=== PATIENT | male | born 1960 | race Caucasian/White ===

== ENCOUNTER 2023-07-18 12:53 | Inpatient (IN) | payer OTHER, SELFPAY ==
[2023-07-18] VITALS (23 sets, daily range): BP systolic 89–174; BP diastolic 51–91; BMI 43.8; BMI 45.2
[2023-07-18 09:53] LABS: Hematocrit 46.6 % (39.0-52.0); Hemoglobin 15.8 g/dL (13.0-18.0); Mean Corp Hgb Conc. 33.9 g/dL (33.0-37.0); Mean Corpuscular Hgb 29.5 pg (27.0-31.0); Mean Corpuscular Volume 87.1 fL (80.0-94.0); Mean Platelet Volume 12.4 fL (7.4-10.4); Nucleated Red Blood Cells % 0 % (-); Platelet Count 257 10^3/uL (130-400); Red Blood Cell Count 5.35 10^6/uL (4.70-6.10); Red Cell Dist. Width 14.4 % (11.5-14.5); White Blood Cell Count 16.8 10^3/uL (4.8-10.8)
[2023-07-18 09:57] LABS: Lactic Acid 2.5 mmol/L (0.7-2.0)
[2023-07-18 10:10] LABS: ALT (SGPT) 23 U/L (0-50); AST (SGOT) 31 U/L (17-59); Albumin 4.1 g/dl (3.5-5.0); Alkaline Phosphatase 55 U/L (38-126); Blood Urea Nitrogen 42 mg/dl (9-20); Carbon Dioxide 22 mmol/L (22-30); Chloride 101 mmol/L (98-107); Estimated Creatinine Clearance 23 ml/min; Glucose 129 mg/dl (70-99); Lipase 22 U/L (23-300); Potassium 4.8 mmol/L (3.5-5.1); Sodium 135 mmol/L (135-145); Total Protein 6.8 g/dl (6.3-8.2); eGFR 14.38
--- NOTE | 2023-07-18 10:14 | ED.GENMED ---
History of Present Illness
<DANIEL Haji - Last Filed: 07/18/23 13:05>
General
Chief Complaint: Abdominal Pain
Source: patient
Exam Limitations: none
Time Seen by Provider: 07/18/23 10:04
Nursing documentation reviewed up to this point in time: agreed with
Travel History
Have you had any contact with someone who has COVID-19?: No
Do you have any symptoms of coronavirus? Fever > 100 degrees, chills, cough, shortness of breath, sore throat, loss of taste or smell, muscle aches, or headache?: No
History of Present Illness
History of Present Illness:
Patient is a 61 show male who presents to the ER with complaints of right-sided abdominal pain decreased appetite. Patient had a colonoscopy on Saturday felt fine Saturday but symptoms of pain and decreased appetite started yesterday. Patient had a
25 mm polyp in the cecum removed. This was resected retrieved and a clip was placed.
Patient denies any nausea however he has not been eating. He is trying to drink a little bit of sharri joel he also reports he is not urinating a lot of urine at a time. does report that patient's abdomen is very distended.
Past History
<DANIEL Haji - Last Filed: 07/18/23 13:05>
Past History
ED Past Medical History: GERD and HTN (not on any meds)
ED Past Surgical History: Other (Vascular surgery)
Social History
Tobacco: Smoker
Personal:
Living: with family
Employment: Employed
Family History
Family History: Other (Noncontributory)
Review of Systems
<DANIEL Haji - Last Filed: 07/18/23 13:05>
Review of Systems
Allergies reviewed?: Yes
All Other Systems: ROS reviewed and negative except as documented in HPI and ROS
Constitutional: Reports no symptoms; Denies fever, fatigue or chills
EENT: Reports no symptoms
Respiratory: Reports no symptoms
Cardiac: Reports no symptoms
ABD/GI: Reports abdominal pain and other (distention ; right sided abd pain ); Denies vomiting or diarrhea
: Reports other (only urinating small amts of urine at a time )
Musculoskeletal: Reports no symptoms
Skin: Reports no symptoms
Neurological: Reports no symptoms
Psychiatric: Reports no symptoms
Phy Exam
<DANIEL Haji - Last Filed: 07/18/23 13:05>
General Physical Exam
General Presentation: no apparent distress
General age: appears stated age
General Skin: warm and dry
General Habitus: obese
General Mental: alert
General Hydration: appears well hydrated
Gastrointestinal Exam
Gastrointestinal Exam: soft and other (tender right abdomen )
Neurological Exam
Neurological Exam: alert and oriented x3
Course
<DANIEL Haji - Last Filed: 07/18/23 13:05>
Orders/Labs/Results
Orders:
Orders
07/18/23 09:30
IV Insert/Care/Rem.- Treatment PRN
07/18/23 09:39
Complete Blood Count/With Diff Urgent
Comprehensive Metabolic Panel Urgent
Lactic Acid Urgent
Lipase Urgent
Manual Differential Urgent
Blood Culture Routine
ZAC Source: Blood/Venous
Specimen Description:
07/18/23 10:14
IV Insert/Care/Rem.- Treatment PRN
0.9% Sodium Chloride 1000 ml [Nss] 1,000 ml IV BOLUS
07/18/23 10:16
Bladder Scan- Treatment ONCE
07/18/23 10:24
CT Abd/pel Without Iv Or Oral Urgent
Comment:
Reason For Exam: right sided abd pain s/p colonscopy
07/18/23 12:02
Morphine Sulfate 4 mg IV NOW STA
Piperacillin/Tazo 3.375 Gram [Zosyn] 3.375 gram in 50 ml IV NOW
07/18/23 12:04
ColoRectal Surgery Consult Urgent
Consulting Provider: Apolinar Hanson
Was physician already notified: Yes
NEPHROLOGY CONSULT Urgent
Consulting Provider: Jessica Harris
Was physician already notified: Yes
07/18/23 12:09
Blood Culture Routine
ZAC Source: Blood/Venous
Specimen Description:
07/18/23 12:14
0.9% Sodium Chloride 1000 ml [Nss] 1,000 ml IV BOLUS
07/18/23 12:15
0.9% Sodium Chloride 500 ml [Nss] 1,000 ml IV BOLUS
07/18/23 12:28
GASTROINTESTINAL CONSULT Urgent
Consulting Provider: Jen Carmichael
Was physician already notified: Yes
07/18/23 12:37
GASTROINTESTINAL CONSULT Urgent
Consulting Provider: Jen Carmichael
Was physician already notified: Yes
07/18/23 12:41
Admit/Transfer Patient As Directed
Co-Sign Provider:
Level of Care: Inpatient admission
Assign to:: IMU- Intermediate Care
Physician / Group: madisyn merritt
Diagnosis: Acute pneumoperitoneum, acute kidney injury, lactic acidosis
Reason for Hospitalization: Acute pneumoperitoneum, acute kidney injury, lactic acidosis
Expected length of stay greater than two midnights?: Yes
ELOS- Estimated Length of Stay in days: 3
I certify the patient meets the requirements for IP care: Yes
07/18/23 12:42
Code Status As Directed
Resuscitation Status: Full Code
07/18/23 12:45
Bladder Scan As Directed
Follow Bladder Retention/Intermittent Cath Algorithm?: Yes
PRN if no void in __ hours: 6
Frequency: Per Retention Algorithm
If Bladder Scan Result >: 400
then:: Straight cath
Straight Cath As Directed
Frequency: Per Retention Algorithm
Additional Instructions: straight cath as needed per acute urinary retention algorithm for 24 hrs
Additional Instructions: for bladder scan greater than 400 mL
07/18/23 15:00
Lactic Acid Routine
Abnormal Lab Results
07/18/23
09:39
WBC 16.8 H 10^3/uL
(4.8-10.8)
MPV 12.4 H fL
(7.4-10.4)
Abs Neuts (Manual) 14.2 H 10^3/uL
(1.4-6.5)
Band Neutrophils 35 H %
(0-3)
Lymphocytes (Manual) 4 L %
(20-51)
BUN 42 H mg/dl
(9-20)
Creatinine 4.4 H* mg/dL
(0.7-1.3)
Glucose 129 H mg/dl
(70-99)
Lactic Acid 2.5 H mmol/L
(0.7-2.0)
Lipase 22 L U/L
(23-300)
07/18/23 09:39
07/18/23 09:39
Vital Signs
Initial and Last Documented VS:
Initial Vital Signs
Temp Pulse Resp BP Pulse Ox
98.0 F 104 18 106/68 92
07/18/23 09:29 07/18/23 09:29 07/18/23 09:29 07/18/23 09:29 07/18/23 09:29
Last Documented Vital Signs
Temp Pulse Resp BP Pulse Ox
98.0 F 89 18 105/62 100
07/18/23 09:29 07/18/23 12:24 07/18/23 12:24 07/18/23 12:24 07/18/23 12:24
Retail Merchandiser Technician consulted with Physician
Retail Merchandiser Technician consulted with physician?: Yes
Name of Physician Consulted: Melissa
<Anders Torres MD - Last Filed: 07/18/23 12:20>
Orders/Labs/Results
Orders:
Orders
07/18/23 09:30
IV Insert/Care/Rem.- Treatment PRN
07/18/23 09:39
Complete Blood Count/With Diff Urgent
Comprehensive Metabolic Panel Urgent
Lactic Acid Urgent
Lipase Urgent
Manual Differential Urgent
Blood Culture Routine
ZAC Source: Blood/Venous
Specimen Description:
07/18/23 10:14
IV Insert/Care/Rem.- Treatment PRN
0.9% Sodium Chloride 1000 ml [Nss] 1,000 ml IV BOLUS
07/18/23 10:16
Bladder Scan- Treatment ONCE
07/18/23 10:24
CT Abd/pel Without Iv Or Oral Urgent
Comment:
Reason For Exam: right sided abd pain s/p colonscopy
07/18/23 12:02
Morphine Sulfate 4 mg IV NOW STA
Piperacillin/Tazo 3.375 Gram [Zosyn] 3.375 gram in 50 ml IV NOW
07/18/23 12:04
ColoRectal Surgery Consult Urgent
Consulting Provider: Apolinar Hanson
Was physician already notified: Yes
NEPHROLOGY CONSULT Urgent
Consulting Provider: Jessica Harris
Was physician already notified: Yes
07/18/23 12:09
Blood Culture Routine
ZAC Source: Blood/Venous
Specimen Description:
07/18/23 12:14
0.9% Sodium Chloride 1000 ml [Nss] 1,000 ml IV BOLUS
07/18/23 12:15
0.9% Sodium Chloride 500 ml [Nss] 1,000 ml IV BOLUS
07/18/23 12:28
GASTROINTESTINAL CONSULT Urgent
Consulting Provider: Jen Carmichael
Was physician already notified: Yes
07/18/23 12:37
GASTROINTESTINAL CONSULT Urgent
Consulting Provider: Jen Carmichael
Was physician already notified: Yes
07/18/23 12:41
Admit/Transfer Patient As Directed
Co-Sign Provider:
Level of Care: Inpatient admission
Assign to:: IMU- Intermediate Care
Physician / Group: madisyn merritt
Diagnosis: Acute pneumoperitoneum, acute kidney injury, lactic acidosis
Reason for Hospitalization: Acute pneumoperitoneum, acute kidney injury, lactic acidosis
Expected length of stay greater than two midnights?: Yes
ELOS- Estimated Length of Stay in days: 3
I certify the patient meets the requirements for IP care: Yes
07/18/23 12:42
Code Status As Directed
Resuscitation Status: Full Code
07/18/23 12:45
Bladder Scan As Directed
Follow Bladder Retention/Intermittent Cath Algorithm?: Yes
PRN if no void in __ hours: 6
Frequency: Per Retention Algorithm
If Bladder Scan Result >: 400
then:: Straight cath
Straight Cath As Directed
Frequency: Per Retention Algorithm
Additional Instructions: straight cath as needed per acute urinary retention algorithm for 24 hrs
Additional Instructions: for bladder scan greater than 400 mL
07/18/23 15:00
Lactic Acid Routine
Abnormal Lab Results
07/18/23
09:39
WBC 16.8 H 10^3/uL
(4.8-10.8)
MPV 12.4 H fL
(7.4-10.4)
Abs Neuts (Manual) 14.2 H 10^3/uL
(1.4-6.5)
Band Neutrophils 35 H %
(0-3)
Lymphocytes (Manual) 4 L %
(20-51)
BUN 42 H mg/dl
(9-20)
Creatinine 4.4 H* mg/dL
(0.7-1.3)
Glucose 129 H mg/dl
(70-99)
Lactic Acid 2.5 H mmol/L
(0.7-2.0)
Lipase 22 L U/L
(23-300)
07/18/23 09:39
07/18/23 09:39
Vital Signs
Initial and Last Documented VS:
Initial Vital Signs
Temp Pulse Resp BP Pulse Ox
98.0 F 104 18 106/68 92
07/18/23 09:29 07/18/23 09:29 07/18/23 09:29 07/18/23 09:29 07/18/23 09:29
Last Documented Vital Signs
Temp Pulse Resp BP Pulse Ox
98.0 F 89 18 105/62 100
07/18/23 09:29 07/18/23 12:24 07/18/23 12:24 07/18/23 12:24 07/18/23 12:24
<DANIEL Haji - Last Filed: 07/18/23 13:05>
MDM/Problems Addressed
Differential Diagnosis Includes:
Not limited to bowel obstruction, bowel perforation, dehydration
MDM/Problems Addressed:
Patient is a 61-year-old male who had colonoscopy 2 days ago. Patient started yesterday with right-sided abdominal pain distention decreased appetite. On arrival patient is tender throughout the right side of the abdomen. He appears dry and has
not been drinking a lot of fluids. He has not eaten in 2 days .
Pt presents awake alert afebrile with an elevated white count of 16.8 abnormal renal function of BUN 42 creatinine 4.4 (last labs from 2021 shows a normal creatinine 1.1), elevated lactic acid at 2.5.
Case discussed with ED physician will obtain noncontrast CAT scan fluids ordered .
11:11: CAT scan does show pneumoperitoneum the exact site of perforation is difficult to determine. GI as well as surgery notified .
Patient was eval by ED physician. Septic fluids ordered IV Zosyn ordered.
Coorectal DR Valentin live pt.
<DANIEL Haji - Last Filed: 07/18/23 13:05>
*Radiology
Radiology exam reviewed: radiology read reviewed
*Pulse Oximetry
Patient hypoxic: no
*Critical Care Note
Total Time (30-74mins, 75-104mins- exclusive of procedures): Not Applicable
ED Attending Note
<DANIEL Haji - Last Filed: 07/18/23 13:05>
-
Portions of this chart may have been created with voice recognition software.� Occasional wrong word or��sound alike� substitutions may have occurred due to the inherent limitations of voice recognition software.
<Anders Torres MD - Last Filed: 07/18/23 12:20>
ED Attending Note
Patient seen and examined by attending physician: Yes
ED Attending Note:
I have seen and evaluated the patient with a [id number]-hafv encounter. I have spoken to the advance practicer provider and involved in the medical history, the physical exam, medical decision making.
Evaluation and management service: agree unless noted differently below.
Results interpretation: agree unless noted differently below.
Focused HPI: 63-year-old male with a past medical history of hypertension, DVT, smoker who presents to the emergency department for evaluation of abdominal pain and distention. Patient had colonoscopy [address] Kern. He says that since
colonoscopy he has had increasing abdominal pain and distention. He says he is a very poor appetite. Had some nausea/dry heaving yesterday. He came to the emergency room for assessment. Has not any fevers or chills. He says he has been
urinating less. He denies any dysuria or hematuria. He denies similar symptoms in the past.
Physical exam: Awake and alert, nondistressed. Tachycardic but otherwise normal vitals. Abdomen mildly distended and tympanic. Diffuse tenderness to palpation. Mucous membranes slightly dry.
Medical Decision Makin-year-old male presents for evaluation of increasing abdominal pain and distention after colonoscopy. Tachycardic but otherwise normal vitals per exam as above. Lab work sent off including CBC which showed leukocytosis
16.8. CMP shows acute renal failure with creatinine of 4.4 from baseline of less than 1. He has no retained urine on bladder scan. He had a CT which shows pneumoperitoneum concern for bowel perforation after colonoscopy. Treated with IV Zosyn.
IV fluids in progress. Discussed case with nephrology for consultation regarding his renal failure. Discussed case with colorectal surgery regarding pneumoperitoneum. Discussed case with hospitalist for admission.
Discharge Plan
Departure
Patient Disposition: Admit
Date of Disposition: 07/18/23
Time of Disposition: 12:18
Admit to doctor: Vannessa
Presentation/result/management discussed w/ accepting MD/DO: Hospitalist
Patient with high blood pressure during this ER visit?: No
Condition: Fair
Covid-19: Not Applicable
Discharge Problem:
Pneumoperitoneum, Perforation bowel, Acute renal failure
Interventions
Interventions:
*Risk Screen - Suicide Last Done: 07/18/23 09:49
*General Assessment Last Done: 07/18/23 09:49
*Neglect/Abuse Screening Last Done: 07/18/23 09:49
*ED COVID-19 Vaccine History Last Done: 07/18/23 09:49
ZW-Aglvkl-Ggcmiwxshl Assessment Last Done: 07/18/23 09:49
[2023-07-18] MEDS: NSS 1000 IV ×3 (10:21→20:27)
--- NOTE | 2023-07-18 10:58 | EDRN ---
Dr. Torres informed about bladder scan results.
[2023-07-18 11:11] LABS: Absolute Neutrophils -Man Diff 14.2 10^3/uL (1.4-6.5); Band Neutrophils 35 % (0-3); Eosinophils 2 % (0-6); Lymphocytes 4 % (20-51); Monocytes 9 % (2-9); Segmented Neutrophils 50 % (42-75)
[2023-07-18 11:13] LABS: Total Cells Counted 100
--- NOTE | 2023-07-18 11:49 | EDRN ---
Dr. Torres in room w/ pt.
[2023-07-18 12:16] LABS: Normal RBC Morphology Yes; Platelets Checked Yes
[2023-07-18] MEDS: MORPHINE SULFATE 4 MG IV (12:17)
[2023-07-18] MEDS: ZOSYN 50 IV (12:18)
--- NOTE | 2023-07-18 12:31 | EDRN ---
Dr. Hayward hospitalist in room w/ pt and informed me pt is to be seen by colorectal surgeon Dr. Hanson as well.
--- NOTE | 2023-07-18 12:45 | HPS.HSE ---
Family Physician
-
Family Physician: Lissy Arriaga
Chief Complaint
-
Abdominal pain
History of Present Illness
63-year-old male with past medical history of GERD, left lower extremity stent on Plavix, hypertension came to the hospital with right-sided abdominal pain and decreased appetite. Patient had recent colonoscopy on 07/16 starting 07/17 he started
developing abdominal pain. Patient had a polyp removal in the cecum. Per patient since then he is unable to eat due to pain. Denies any chest pain, shortness of breath. He also noted distended abdomen. He has not had his Plavix for about 5 to 6
days.
Medical History
Past Medical History
Past Medical History: Reports GERD and HTN
Past Surgical History: Reports Other (Vascular surgery)
Social History
Tobacco: Smoker
Family History
Family History: Not pertinent
Allergies / Home Medications
Allergies reflects when Allergies were last updated in [employer].
Home Medications with original date entered in [employer]
Allergy/Medication List:
Allergies
Allergy/AdvReac Type Severity Reaction Status Date / Time
No Known Allergies Allergy Verified 07/16/23 09:39
Home Medications
atorvastatin 40 mg tablet 40 mg PO QPM High cholesterol 05/27/20
fenofibrate nanocrystallized 145 mg tablet 145 mg PO QPM High cholesterol 05/27/20
lisinopril 20 mg tablet 20 mg PO HS Blood pressure 05/27/20
clopidogrel 75 mg tablet 75 mg PO HS Blood clot prevention/tx ##0 11/26/21
pantoprazole 20 mg tablet,delayed release 20 mg PO DAILY 07/16/23
acetaminophen 500 mg tablet (Tylenol Extra Strength) 1,000 mg PO ONCE PRN mild pain 07/18/23
albuterol sulfate 90 mcg/actuation aerosol inhaler 1 puff inhalation R Q4HPRN PRN dyspnea 07/18/23
multivit with min-folic acid-lutein 400 mcg-250 mcg chewable tablet (Centrum Silver) 2 tab PO ONCE PRN supplement 07/18/23
Review of Systems
-
History Source: Patient
A 12 point ROS was completed and negative except as noted: Yes
Abdomen/GI: Reports Abdominal Pain
Physical Exam
Vital Signs
Vital Signs
Temp Pulse Resp BP Pulse Ox
98.0 F 89 18 105/62 100
07/18/23 09:29 07/18/23 12:24 07/18/23 12:24 07/18/23 12:24 07/18/23 12:24
Physical Exam
General: Well Nourished and No Apparent Distress
HEENT: Anicteric and Moist mucous membranes
Respiratory: Clear and Non Labored Respirations; No Wheezes
Cardiac: S1/S2 and Regular Rhythm
Breast: Deferred by me
GI: Soft, Tender and Distended
Rectal: Deferred by Provider
Genito-urinary: No Menjivar
Musculoskeletal: No Edema
Neuro: Awake, Alert, Oriented and AO x 3
Psych: Calm and Intact Judgment/Insight
Laboratory Results
-
07/18/23 09:39
07/18/23 09:39
Laboratory Results
Lactic Acid 2.5 mmol/L (0.7-2.0) H 07/18/23 09:39
Total Bilirubin 1.0 mg/dl (0.2-1.3) 07/18/23 09:39
AST 31 U/L (17-59) 07/18/23 09:39
ALT 23 U/L (0-50) 07/18/23 09:39
Alkaline Phosphatase 55 U/L (38-126) 07/18/23 09:39
Lipase 22 U/L (23-300) L 07/18/23 09:39
Impression/Plan
-
Severe sepsis secondary to pneumoperitoneum
Recent colonoscopy with cecal polyp removed 07/16
NPO
colorectal and GI consulted
IVF
hasnt been on plavix for 5-[address]
IV PPI
Lactic acidosis
Trend lactate
Monitor with fluids
Acute kidney injury
Does report decrease in urine output
Continue with fluids
Nephrology evaluation
Denies using any NSAIDs, likely secondary to dehydration and pneumoperitoneum
hx of HTN
hold lisinopril
GERD
PPI
LLE stent
Follows up with vascular outpatient, continue to hold Plavix
DVT prophylax
SCDs
Full code
I spent a total of 77 minutes with the patient or on the floor. More than 50% of this time involved counseling and coordination of care.
--- NOTE | 2023-07-18 13:15 | EDRN ---
ColoRectal Surgeon Dr Hanson in room w/pt at this time. Pt very uncomfortable on stretcher so this RN found a recliner and will attempt to assist pt into it for more comfort when Dr. Hanson is finished w/ pt. pt complaining of lower back pain.
--- NOTE | 2023-07-18 13:24 | EDRN ---
Pt assisted to recliner and back is more comfortable at this time.
--- NOTE | 2023-07-18 14:21 | EDRN ---
Nora Alcala adjunct spanish instructor/Ostomy marked abdomen for potential colostomy. GI who did colonoscopy is in speaking w/ pt at this time. Pt is awaiting to go to surgery at this time.
--- NOTE | 2023-07-18 14:22 | CON.CRS ---
Consultation
-
Date/Time Consultation Requested: 07/17/2023, 12:04
Date/Time Consultation Performed: 07/17/2023, 14:30
Requesting Provider: Anders Torres MD
Performing Provider: Apolinar Hanson MD
Reason for Consultation: perforation
Medical History
-
Chief Complaint: Abdominal pain
History of Present Illness:
17-year-old male presents to the emergency department complaining of abdominal pain. The patient had under went a colonoscopy by Dr. Bobby Kern on 07/16/2023. During the colonoscopy a 25 mm polyp was found in the cecum. It was snared and resected. 3
hemostatic clips were placed. A 6 mm polyp was also found in the sigmoid colon that was sessile. The polyp was removed via cold snare. The patient ate a soup and bagel after he went home that evening. However after that he did not have an
appetite. Yesterday he began to have abdominal pain and abdominal distention. At 3 AM this morning he vomited after drinking a sharri joel. He states he has had no bowel movements. He denies gas. He has no pain on urination. He feels like he is
not emptying his bladder. CT of the abdomen and pelvis shows a pneumoperitoneum which may be secondary to recent colonoscopy. Probable reactive ileus and enteritis. His white blood cell count in the ER 16.8. His vitals are normal. Previous
abdominal surgery includes an umbilical hernia repair years ago. He was started on IV antibiotics while in the ER. He was also found to have an acute kidney injury with a creatinine of 4.4. He is on plavix but has not had it for 5 or 6 days. We
have been consulted for further surgical recommendations.
Past Medical History
Past Medical History: GERD and HTN
Past Surgical History: Other (Repair of incarcerated umbilical hernia - Dr. Camara, November 2021)
Social History
Tobacco: Smoker
Family History
Family History: Reviewed & Not Pertinent
Allergies / Home Medications
Allergy/AdvReac Type Severity Reaction Status Date / Time
No Known Allergies Allergy Verified 07/16/23 09:39
Medication Instructions Recorded Confirmed Type
atorvastatin 40 mg tablet 40 mg PO QPM High cholesterol 05/27/20 07/18/23 History
fenofibrate nanocrystallized 145 145 mg PO QPM High cholesterol 05/27/20 07/18/23 History
mg tablet
lisinopril 20 mg tablet 20 mg PO HS Blood pressure 05/27/20 07/18/23 History
clopidogrel 75 mg tablet 75 mg PO HS Blood clot 11/26/21 07/18/23 Rx
prevention/tx ##0
pantoprazole 20 mg tablet,delayed 20 mg PO DAILY 07/16/23 07/18/23 History
release
acetaminophen 500 mg tablet 1,000 mg PO ONCE PRN mild pain 07/18/23 07/18/23 History
(Tylenol Extra Strength)
albuterol sulfate 90 mcg/actuation 1 puff inhalation R Q4HPRN PRN 07/18/23 07/18/23 History
aerosol inhaler dyspnea
multivit with min-folic 2 tab PO ONCE PRN supplement 07/18/23 07/18/23 History
acid-lutein 400 mcg-250 mcg
chewable tablet (Centrum Silver)
Review of Systems
-
History Source: Patient
Abdomen/GI: Abdominal Pain, Nausea, Vomiting and Anorexia
: Difficulty Voiding
A 10 point review of systems was completed, and was negative except as per HPI.
Physical Exam
Vital Signs
Temp 98.0 F 07/18/23 09:29
Pulse 90 07/18/23 14:00
Resp Rate 16 07/18/23 14:00
Blood pressure 117/88 07/18/23 14:00
SaO2 98 07/18/23 14:00
07/17/23 07/18/23 07/19/23
06:59 06:59 06:59
Actual Weight 130.7 kg
Body Mass Index (BMI) 43.8
Lab Results / Allergies
07/18/23 09:39
07/18/23 09:39
WBC 16.8 10^3/uL (4.8-10.8) H 07/18/23 09:39
Hgb 15.8 g/dL (13.0-18.0) 07/18/23 09:39
Hct 46.6 % (39.0-52.0) 07/18/23 09:39
Plt Count 257 10^3/uL (130-400) 07/18/23 09:39
Allergy/AdvReac Type Severity Reaction Status Date / Time
No Known Allergies Allergy Verified 07/16/23 09:39
Physical Exam
General: Well Developed, Well Nourished and No Apparent Distress
GI: Tender (RLQ - moderate, RUQ/LUQ - mild) and Distended
Skin: Warm and Dry
Neuro: AO x 3
Assessment / Plan
-
Assessment: 63-year-old male with recent colonoscopy 2 days ago presents to the emergency department with abdominal pain and distention, found to have a WBC of 16.[address]
Plan:
Given findings on CT and exam, patient is scheduled for the operating room later today. This was discussed with the patient at bedside. For now continue NPO. IV fluids due to n.p.o. status and kidney injury. Continue IV antibiotics. Preop
orders are in place. I have consulted the wound care nurse to jory him for potential stoma. OR arrangements are in place. Communicated with hospitalist.
--- NOTE | 2023-07-18 14:25 | WOUNDNOTE ---
[facility] RN note: Patient sitting in a jayant chair. Patient stoma marked both sides as requested by MALKA Bhagat. Patient reports his abdomen is very distended making stoma marking challenging. Stoma marked upper quadrants d/t body habitus.
present who stated she can help with his ostomy care if needed. Stoma marked patient in sitting and standing positions. Patient was having back pain on the ED stretcher as per nurse Lupe. LUQ stoma jory 7.4cm to L of midline and 8.3cm above
umbilical line. RUQ stoma jory 6.3cm to R of midline and 9.6cm above the umbilical line. Patient stated he had hernia surgery in past. Patient instructed surgeon makes the final decision with stoma placement.
--- NOTE | 2023-07-18 14:45 | EDRN ---
Report given to Lauren HARRINGTON in OR at this time.
--- NOTE | 2023-07-18 14:56 | CON.GI ---
Consultation
-
Date/Time Consultation Requested: 07/17/2023
Date/Time Consultation Performed: 07/17/2023
Requesting Provider: ED physician
Performing Provider: Elisha GRAHAM
Reason for Consultation: Bowel perforation
Medical History
Chief Complaint / HPI
Chief Complaint: Abdominal pain
History of Present Illness:
63-year-old male with history of GERD, peripheral vascular disease status post lower extremity stent on Plavix, hypertension admitted with generalized abdominal pain for 2 days. Patient underwent therapeutic colonoscopy with Dr. Kern on 07/16/2023
for cecal polypoid lesion (noted on colonoscopy 02/[address] Herndon) -s/p endoscopic mucosal resection. Patient claims after the procedure next days he started getting abdominal pain with nausea. Denies any vomiting. No fever but admits to
some chills at home. Since abdominal pain got worse and today he decided to come to the emergency room. Currently holding Plavix.
underwent CT abd in ED today.
IMPRESSION:
1. Pneumoperitoneum which may be secondary to recent colonoscopy. The exact site of perforation is difficult to determine on this exam.�
2. Probable reactive ileus/enteritis.
Past Medical History
Past Medical History: Other (GERD, hypertension)
Past Surgical History: Other (Lower extremity stent)
Social History
Tobacco: Smoker
Allergies / Home Medications
Allergy/AdvReac Type Severity Reaction Status Date / Time
No Known Allergies Allergy Verified 07/16/23 09:39
Medication Instructions Recorded
atorvastatin 40 mg tablet 40 mg PO QPM High cholesterol 05/27/20
fenofibrate nanocrystallized 145 145 mg PO QPM High cholesterol 05/27/20
mg tablet
lisinopril 20 mg tablet 20 mg PO HS Blood pressure 05/27/20
clopidogrel 75 mg tablet 75 mg PO HS Blood clot 11/26/21
prevention/tx ##0
pantoprazole 20 mg tablet,delayed 20 mg PO DAILY 07/16/23
release
acetaminophen 500 mg tablet 1,000 mg PO ONCE PRN mild pain 07/18/23
(Tylenol Extra Strength)
albuterol sulfate 90 mcg/actuation 1 puff inhalation R Q4HPRN PRN 07/18/23
aerosol inhaler dyspnea
multivit with min-folic 2 tab PO ONCE PRN supplement 07/18/23
acid-lutein 400 mcg-250 mcg
chewable tablet (Centrum Silver)
Review of Systems
-
All other systems: A 12 pt ROS was Negative except as stated above in HPI
Vital Signs
Temp Pulse Resp BP Pulse Ox
98.0 F 90 16 117/88 98
07/18/23 09:29 07/18/23 14:00 07/18/23 14:00 07/18/23 14:00 07/18/23 14:00
Physical Exam
Exam
General: Well Developed and Comfortable
Respiratory: Clear
Cardiac: S1/S2
GI: Tender (Diffuse tenderness) and Distended
Skin: Warm
Neuro: AO x 3
Results
WBC 16.8 10^3/uL (4.8-10.8) H 07/18/23 09:39
Hgb 15.8 g/dL (13.0-18.0) 07/18/23 09:39
Hct 46.6 % (39.0-52.0) 07/18/23 09:39
MCV 87.1 fL (80.0-94.0) 07/18/23 09:39
Plt Count 257 10^3/uL (130-400) 07/18/23 09:39
Sodium 135 mmol/L (135-145) 07/18/23 09:39
Potassium 4.8 mmol/L (3.5-5.1) 07/18/23 09:39
Chloride 101 mmol/L (98-107) 07/18/23 09:39
Carbon Dioxide 22 mmol/L (22-30) 07/18/23 09:39
BUN 42 mg/dl (9-20) H 07/18/23 09:39
Creatinine 4.4 mg/dL (0.7-1.3) H* 07/18/23 09:39
Calcium 10.0 mg/dl (8.4-10.2) 07/18/23 09:39
Total Bilirubin 1.0 mg/dl (0.2-1.3) 07/18/23 09:39
AST 31 U/L (17-59) 07/18/23 09:39
ALT 23 U/L (0-50) 07/18/23 09:39
Alkaline Phosphatase 55 U/L (38-126) 07/18/23 09:39
Lipase 22 U/L (23-300) L 07/18/23 09:39
Diagnostic Image Results:
CT abd 07/18/23
IMPRESSION:
1. Pneumoperitoneum which may be secondary to recent colonoscopy. The exact site of perforation is difficult to determine on this exam.�
2. Probable reactive ileus/enteritis.
Prior GI Procedures:
EGD:
Colonoscopy:
03/12/2023 Dr. Hodgson
Impression:� � � � � � - One 20 mm polyp in the cecum with indistinct
�� � � � � � � � � � � borders, not removed.
�� � � � � � � � � � � - One 15 mm polyp in the transverse colon, removed
�� � � � � � � � � � � with a hot snare. Resected and retrieved.
�� � � � � � � � � � � - Nodule in the sigmoid colon and at 35 cm proximal to
�� � � � � � � � � � � the anus. Biopsied.
�� � � � � � � � � � � - One 3 mm polyp in the rectum, removed with a cold
�� � � � � � � � � � � biopsy forceps. Resected and retrieved.
�� � � � � � � � � � � - Diverticulosis in the sigmoid colon and in the
�� � � � � � � � � � � descending colon.
�� � � � � � � � � � � - Internal hemorrhoids.
�� � � � � � � � � � � - The examination was otherwise normal.
07/16/2023 Dr. Kern
Impression:� � � � � � - Preparation of the colon was fair.
�� � � � � � � � � � � - Stool in the sigmoid colon, in the transverse colon
�� � � � � � � � � � � and in the ascending colon.
�� � � � � � � � � � � - The examined portion of the ileum was normal.
�� � � � � � � � � � � - One 25 mm polyp in the cecum, removed with mucosal
�� � � � � � � � � � � resection. Resected and retrieved. Treated with argon
�� � � � � � � � � � � plasma coagulation (APC). Treated with hot biopsy
�� � � � � � � � � � � forceps. Clips (MR conditional) were placed.
�� � � � � � � � � � � - Diverticulosis in the sigmoid colon and in the
�� � � � � � � � � � � descending colon.
�� � � � � � � � � � � - One 6 mm polyp in the sigmoid colon, removed with a
�� � � � � � � � � � � cold snare. Resected and retrieved.
�� � � � � � � � � � � - Internal hemorrhoids.
�� � � � � � � � � � � - Mucosal resection was performed. Resection and
�� � � � � � � � � � � retrieval were complete.
Path -sessile serrated lesion
Assessment / Plan
-
63-year-old male with history of GERD, hypertension, peripheral vascular disease admitted with severe abdominal pain for 2 days. Patient underwent colonoscopy with EMR of cecal polypoid lesion with Dr. Kern on 07/16/2023. Details above. On
admission to ED WBC 16.8/hemoglobin 15.8/platelets 257. Noted to have a creatinine of 4.4/BUN 42/lactic acid 2.5. Currently off Plavix for [address] abdomen/pelvis showing pneumoperitoneum.
--Pneumoperitoneum secondary to bowel perforation
--Colonoscopy with EMR 07/16/2023
--JD
plan
N.p.o.
IV fluids
Nephrology evaluation for JD
colorectal surgical evaluation
Case discussed with hospitalist/colorectal surgery/Dr. Kern. Patient will be taken to the OR this afternoon
Total Time Spent with Patient (in minutes): 55
Data Reviewed
-
CT Scan: Report Reviewed by me
-
-
Thank you for consultation and allowing me to participate in the patient's care. Please call the relocation commissioner GI physician during the after hours with any questions or concerns.
--- NOTE | 2023-07-18 15:00 | EDRN ---
Spin Table Operator Dr. Harris w/ pt at this time.
[2023-07-18 15:09] LABS: INR 1.17; PT 15.2 Sec (11.4-14.6)
[2023-07-18 15:10] LABS: APTT 35.9 Sec (23.4-35.0)
--- NOTE | 2023-07-18 16:54 | CON.MD ---
Consultation - Medical
-
Assessment:
Severe sepsis 2/2 to pneumoperitoneum
Lacic acidosis
JD (Cr baseline 1)
HTN
GERD
LLE with stent in past
Plan:
- patient to go to OR today for pneumoperitoneum
- started making a bit more urine
- please place Menjivar, obtain UA, UPCR
- most likely JD is in the setting of severe sepsis leading to ATN
- agree with fluids (30cc/kg) bolus
- trend BMPs
- supportive management per primary team
- please keep MAP >65
--- NOTE | 2023-07-18 19:49 | W.IMMPOSTOP ---
Surgical Immed Post Op Note
-
Primary Surgeon: Apolinar Hanson MD
Assisting Surgeon: Luke Dunne MD, Apolinar Geiger, HARD CANDY SPINNER
Pre-op Diagnosis: pneumoperitoneum
Post-op Diagnosis: cecal perforation
Procedure Performed: diagnostic laparoscopy, exlap, right hemicolectomy, abdominal wash-out, creation of end-ileostomy
Anesthesia Type: geta
Specimen / Cultures: none
Estimated Blood Loss: 300mL
IVF: 2.7L
UOP: 250mL
Complications: none
Operative Findings: upon entry, noted fibrinous exudate diffusely along the small bowel; placed ports and mobilized the cecum, discovered a 5mm perforation in the cecum close to the ileocecal valve; after entering the lesser sac, anesthesia noted
the patient was becoming hypotensive and was placed on pressors; converted to a laparotomy; mobilized the remainder of the right colon, controlled bleeding mesenteric vein with 2-0 vicryl; stapled across the proximal transverse and terminal ileum
10cm from IC valve; washed abdomen out with 5L of warm saline; placed surgicel over mesenteric vein; brought up end-ileostomy; closed fasica with #1 PDS and closed skin loosely with alicia and intermittent telfa packing; matured ostomy; anesthesia
kept patient intubated, pressors were weaned by the completion of the case
[2023-07-18 20:30] LABS: Hematocrit 43.6 % (39.0-52.0); Hemoglobin 14.7 g/dL (13.0-18.0); Mean Corp Hgb Conc. 33.7 g/dL (33.0-37.0); Mean Corpuscular Hgb 29.7 pg (27.0-31.0); Mean Corpuscular Volume 88.1 fL (80.0-94.0); Mean Platelet Volume 12.2 fL (7.4-10.4); Platelet Count 211 10^3/uL (130-400); Red Blood Cell Count 4.95 10^6/uL (4.70-6.10); Red Cell Dist. Width 14.6 % (11.5-14.5); White Blood Cell Count 10.2 10^3/uL (4.8-10.8)
[2023-07-18] MEDS: SUBLIMAZE 50 MCG IV (20:33)
[2023-07-18] MEDS: PROTONIX IV 40 MG IV (20:35)
[2023-07-18] MEDS: NSS (PRESERVATIVE FREE) 10 ML IV (20:36)
[2023-07-18 20:41] LABS: Lactic Acid 1.1 mmol/L (0.7-2.0)
[2023-07-18 20:47] LABS: Blood Urea Nitrogen 52 mg/dl (9-20); Calcium 7.7 mg/dl (8.4-10.2); Carbon Dioxide 19 mmol/L (22-30); Chloride 103 mmol/L (98-107); Estimated Creatinine Clearance 32 ml/min; Glucose 146 mg/dl (70-99); Magnesium 1.7 mg/dl (1.6-2.3); Potassium 4.8 mmol/L (3.5-5.1); Sodium 135 mmol/L (135-145); eGFR 21.07
[2023-07-18 20:50] LABS: Absolute Neutrophils -Man Diff 9.1 10^3/uL (1.4-6.5); Band Neutrophils 29 % (0-3); Lymphocytes 7 % (20-51); Monocytes 3 % (2-9); Platelets Checked Yes; Segmented Neutrophils 61 % (42-75)
[2023-07-18 20:51] LABS: Normal RBC Morphology Yes; Total Cells Counted 100
--- NOTE | 2023-07-18 21:01 | OR.RPT ---
Operative Report
Operative Report
DATE OF OPERATION: 07/18/2023
SURGEON: Apolinar Hanson MD
PREOPERATIVE DIAGNOSIS: Pneumoperitoneum
POSTOPERATIVE DIAGNOSIS: Cecal perforation, septic shock
OPERATION: Diagnostic laparoscopy, exploratory laparotomy, right hemicolectomy, abdominal washout, creation of end ileostomy
ASSISTANTS:
1. CHRISSY Cameron
2. Luke Dunne MD
ANESTHESIA: Geta
ESTIMATED BLOOD LOSS: 300 mL
IVF: 2.7 L
UOP: 250 mL
FINDINGS:
1. Fibrinous exudate scattered throughout small bowel
2. Small paracolic abscess with about 5ml of pus
2. 5 mm cecal perforation with associated abscess cavity about 5 mL pus
SPECIMENS:
1. None
DRAINS: None
COMPLICATIONS: No immediate complications.
INDICATIONS: The patient is a 63-year-old male who underwent an advanced polypectomy of a 2.5 cm cecal polyp on 07/16/[address] Bobby Kern. The following day, he developed worsening abdominal pain and bloating. He presented to the ED today for
persistent worsening pain. He was found to have a leukocytosis of 16.8, and JD with Cr of 4.[address] showing pneumoperitoneum, radiographically was difficult to identify origin. He was significantly tender on exam. Due to his clinical status, I
recommended an operation to identify the perforation and repair it versus resect the area. The operation was discussed with the patient and patient's spouse in detail, including the risks, benefits and alternatives. Risks described included, but
not limited to, bleeding, infection, anastomotic leak (if an anastomosis is created), ureteral injury, bowel or solid organ injury, need for ostomy creation, conversion to open, and anesthetic risks. The patient and patient's spouse understood and
agreed to proceed.
PROCEDURE IN DETAIL: The patient was marked by the ostomy team preoperatively. The patient was taken to the operating room and placed on the operating table in supine position. Sequential compression devices were placed bilaterally. General
anesthesia was then induced and the patient was intubated without complication. The patient was then placed in lithotomy position with the both arms tucked. Menjivar catheter was placed with sterile technique. Anesthesia placed an nasogastric tube.
The patient recently received a dose of IV Zosyn within 2 hours. The abdomen was then prepped and draped in a sterile fashion. A marking pen was used to jory out the midline. A time-out was then performed verifying the correct patient, procedure,
operative site, positioning, and special equipment.
A stab incision was created at Parisi's point and a Veress needle was introduced. After appreciating 3 clicks, insufflation was turned on and the opening pressure was noted to be less than 8 mmHg. The abdomen was insufflated to a pressure of 15
mmHg. The patient tolerated the insufflation well. A 5 mm port was placed in the midline 3 cm cephalad to the umbilical hernia repair scar using the Optiview technique with a 0-5 mm camera. After entry was confirmed and ensuring no injury to
adjacent intraperitoneal structures, a 5-30 mm camera was connected and inserted. The abdomen was examined. Diffuse fibrinous exudate was noted scattered throughout the small bowel. The cecum was not initially visible. No injury from initial
port placement or veress insertion was noted. The Veress was removed and passed off. Then, two 5 mm ports were placed under direct visualization in the left midabdomen and left lower quadrant, taking care to avoid injury to the epigastric artery.
2 atraumatic bowel graspers were inserted and used to sweep the omentum cephalad. The patient was placed in reverse Trendelenburg with the right side up. The small bowel was swept to the left lower quadrant and pelvis. There were dense adhesions
from the omentum to the cecum. This was carefully taken down with combination of blunt dissection and LigaSure electrocautery. At this point, a 5 mm perforation was noted in the cecum, about 4 cm distal to the ileocecal valve. A small amount of
liquid stool was noted emanating from the perforation. As the omentum was dissected off of the remainder of the ascending colon, a small paracolic abscess was encountered with about 5 mL of purulent fluid, which was suctioned. Once the cecum and
right colon were free from the omentum, a medial to lateral approach was considered. However, due to the burden of intraperitoneal adipose, I was not able to obtain adequate exposure to the ileocecal pedicle. Therefore, I proceeded with a lateral
to medial approach starting at the ileocecum. The cecum was grasped and retracted to the left upper quadrant. Lateral attachments were taken down with the LigaSure. There was a significant amount of inflammation and adhesions in the area, making
the dissection difficult. I continued the dissection under the mesoappendix. At this point, however, the adhesions and inflammation were making the retroperitoneal plane difficult to dissect. I turned my attention to the transverse colon. The
omentum was grasped and elevated and the transverse colon retracted caudad. The gastrocolic ligament was divided and the lesser sac was entered. I continued taking down the gastrocolic ligament towards the hepatic flexure. Again, there was a
significant amount of intraperitoneal adipose making this dissection difficult. At this point, anesthesia noted that the patient's blood pressure had been slowly decreasing, requiring the initiation of Levophed at 6 mcg per minute and
Gilles-Synephrine at 25 mcg per minute. Therefore, I decided to convert to a laparotomy in order to expedite the control of contamination.
Using Bovie electrocautery, a midline incision was made starting from several centimeters below the umbilicus to 15 cm above the umbilicus. The incision was taken down to the level of the fascia using the previously placed 5 mm port as a guide.
The linea alba was then incised. Using a Марина to stretch the 5 mm port, a finger was then advanced into the peritoneum and the peritoneum was elevated and incised along my index finger, ensuring no injury to intraperitoneal structures. This was
extended to the length of the skin incision. An extra-large Zhang wound protector was placed. Small bowel was then eviscerated in order to improve the visualization of the right colon and transverse colon. I then continued my dissection of the
gastrocolic ligament along the transverse colon towards the hepatic flexure using a combination of blunt dissection and Bovie electrocautery, taking care to avoid injury to the pancreas, duodenum and gallbladder. During this dissection, bleeding
from a mesenteric vein was noted and this was controlled with a 2-0 Vicryl stitch. The hepatocolic ligament was then taken down and the hepatic flexure was mobilized. I continued taking down the white line of Toldt laterally and extended this
dissection down to the ileocolic junction. Using delicate blunt dissection, the mesocolon was freed from the retroperitoneal attachments, taking care to avoid injury to the right kidney or ureter. The mesentery of the terminal ileum was also freed
from the pelvic attachments and the retroperitoneum. A transection point was selected along the terminal ileum about 10 cm proximal to the ileocecal valve. A hole in the mesentery was created with Bovie electrocautery at the border of the
intestine and mesentery. Using a BYRON 80 stapler with a blue load, the terminal ileum was stapled and divided. A transection point was then selected at the proximal transverse colon. Similarly, a hole in the mesentery was created with Bovie
electrocautery at the border of the colon and the mesentery. A BYRON 80 stapler with a blue load was used to staple and divide the proximal transverse colon. As the polypectomy was complete and the pathology was confirmed to be benign, a high
ligation of the ileocolic pedicle with appropriate lymph node harvest was not indicated. Using the laparoscopic LigaSure, the mesentery was serially ligated along the bowel from the proximal transverse colon transection point to the terminal ileum
transection point. The right branch of the middle colic and the ileocolic pedicle were ligated during this dissection. The specimen was then passed off and sent for pathology.
The bleeding mesenteric vein was then reassessed and hemostasis was confirmed. The abdomen was copiously washed with 5 L of warm saline. The operative field was reassessed for hemostasis, including the staple lines, which was confirmed. A piece
of Surgicel was placed over the mesenteric vein that was ligated. Anesthesia confirmed that the patient was still on vasopressors, but at slightly improved rates. He was on Levophed at 4 mcg per minute and Gilles-Synephrine at 25 mcg per minute.
Therefore, I elected to proceed with an end ileostomy as an anastomosis in the setting of shock and vasopressors has a high likelihood of failing. The terminal ileum was freely mobile and reached the anterior abdominal wall without tension. The
right upper quadrant marking was selected. Using an Allis clamp, the skin at the marking was grasped and elevated, and a circular incision was created through the skin. A small cone of subcutaneous tissue was cored out and excised. Using
[employer]'s and electrocautery, this was taken down to the anterior fascia which was incised in a cruciate manner. A long Марина was used to split the rectus muscle. A folded lap pad was placed under the peritoneum to protect the intra-abdominal
structures. The Bovie was then used to create a cruciate incision in the posterior fascia and peritoneum. 2 fingers easily passed through the trephine. A Aleida was then passed through the trephine to grasp the terminal ileum and this was pulled
through the trephine with and excess of 3 to 4 cm of length.
The omentum was then retracted over the midline to protect the intra-abdominal structures. Marcaine 0.25% was injected in the peritoneum circumferentially around the midline incision. The fascia was then closed with #1 running PDS, starting at
both corners and sewing towards the middle. Seprafilm was placed under the midline incision as the fascia was being closed. The skin was closed intermittently using alicia and placing Telfa aminta. The port sites were closed with skin alicia.
Blue towels were placed over the incisions and attention was turned to maturing the ostomy. The staple line was excised with electrocautery. The ileostomy was matured in the usual Brooked fashion using 3-0 Vicryl's. When complete, the ileostomy
remained well-perfused and patency was ensured using my pinky finger. An ostomy appliance was sized and placed over the ileostomy. The blue towels were removed and an Aquacel was placed over the midline incision. The port sites were covered with
gauze and Tegaderm.
At this point, the procedure was complete. Anesthesia elected to keep the patient intubated as a precaution. They noted that his vasopressors were weaned off after the inhalation anesthetic was turned off. The Menjivar was left in place. All
needle, sponge and instrument counts were reported as correct. The patient tolerated the procedure well and was transferred to the ICU in stable condition with the nasogastric tube in place.
Of note, Luke Dunne MD, information services assistant, was necessary during this procedure for traction, countertraction, and exploratory purposes. I was present for the entire duration of the case.
DICTATED BY: Apolinar Hanson MD
[2023-07-18] MEDS: MAGNESIUM SULFATE 100 IV (21:03)
[2023-07-18] MEDS: SUBLIMAZE 100 IV (21:03)
[2023-07-18 21:26] LABS: B.E. -4.9 mmol/L; HCO3 22.1 mmol/L (21-28); Ionized Calcium 1.04 mMOL/L (1.15-1.33); PCO2 47 mmHg (35-48); PO2 122 mmHg (83-108); Potassium 4.8 mMOL/L (3.5-5.1); Sodium 132 mMOL/L (136-145); pH 7.28 (7.35-7.45)
[2023-07-18] MEDS: NSS 250 IV (22:00)
--- NOTE | 2023-07-18 22:26 | PTCARENOTE ---
Addendum entered by Cathleen Alexander RN 07/18/23 22:31:
colostomy pink in appearance, no drainage
Original Note:
pt received from pacu- ett to vent- see settings as charted. pt able to open eyes to name and tactile, follows simple commands. on fentanyl gtt as per order at 50mcg. pupils 3 equal and reactive. left radial debra zeroed and functioning- pt noted
with low bps- 250cc bolus given- levophed initiated as per order to maintain map>65. ivf infusing as pr order. mag rider given, calcium ordered. labs sent and ekg completed. nsr to st w frequent pvcs on monitor. corbett draining yellow urine. pt with
midline abdominal incision silver dressing c/d/i. laproscopic sites dressings c/d/i. ngt to right nare with low intermittent suction draining green and brown bile. turned and repositioned. oral care provided. all safety precautions in place.
[2023-07-18] MEDS: CALCIUM CHLORIDE 10% SYRINGE 60 MG IV (22:35)
[2023-07-18] MEDS: LEVOPHED 250 IV (22:36)
[2023-07-18] MEDS: PRECEDEX 100 IV (23:43)
--- NOTE | 2023-07-18 23:50 | PTCARENOTE ---
pt awake and calm. able to nod yes and no to questions. denies pain at this time. precedex started as per order. levophed initiated for low bp to maintain map>65. assessment unchanged further.
[2023-07-19] VITALS (46 sets, daily range): BP systolic 97–129; BP diastolic 46–74; PULSE 2–73
[2023-07-19] MEDS: ZOSYN 50 IV ×4 (01:11→22:03)
[2023-07-19] MEDS: LEVOPHED 250 IV ×3 (02:40→09:45)
--- NOTE | 2023-07-19 03:48 | PTCARENOTE ---
assessment unchanged. pt continues to deny pain. assisted with repositioning for comfort. all labs sent as per order. gtts unchanged. mireya lawrence aware of cuff pressure vs debra pressures- ok with map of 60 on debra.
[2023-07-19 04:01] LABS: Hematocrit 42.2 % (39.0-52.0); Hemoglobin 14.1 g/dL (13.0-18.0); Mean Corp Hgb Conc. 33.4 g/dL (33.0-37.0); Mean Corpuscular Hgb 29.9 pg (27.0-31.0); Mean Corpuscular Volume 89.4 fL (80.0-94.0); Nucleated Red Blood Cells % 0 % (-); Platelet Count 261 10^3/uL (130-400); Red Blood Cell Count 4.72 10^6/uL (4.70-6.10); Red Cell Dist. Width 14.6 % (11.5-14.5); White Blood Cell Count 10.2 10^3/uL (4.8-10.8)
[2023-07-19 04:14] LABS: B.E. -4.8 mmol/L; HCO3 21.1 mmol/L (21-28); Ionized Calcium 1.17 mMOL/L (1.15-1.33); PCO2 41 mmHg (35-48); PO2 169 mmHg (83-108); Potassium 4.6 mMOL/L (3.5-5.1); Sodium 133 mMOL/L (136-145); pH 7.32 (7.35-7.45)
[2023-07-19 04:19] LABS: O2 Saturation % 99.4 % (94-98); O2 Therapy 98%
[2023-07-19 04:30] LABS: Urine Albumin Trace (Neg - Trace); Urine Bilirubin 1+ (Negative); Urine Character Clear (Clear); Urine Color Yellow; Urine Glucose Negative (Negative); Urine Ketone Negative (Negative); Urine Leukocyte Negative (Negative); Urine Nitrite Negative (Negative); Urine Occult Blood Negative (Negative); Urine Specific Gravity 1.025 (<1.030); Urine Urobilinogen Negative (Neg - 1+)
[2023-07-19 05:16] LABS: Urine Protein < 5 mg/dl
[2023-07-19] MEDS: NSS 1000 IV (05:28)
[2023-07-19 06:10] LABS: ALT (SGPT) 38 U/L (0-50); AST (SGOT) 46 U/L (17-59); Albumin 2.6 g/dl (3.5-5.0); Alkaline Phosphatase 41 U/L (38-126); Blood Urea Nitrogen 58 mg/dl (9-20); Calcium 8.5 mg/dl (8.4-10.2); Carbon Dioxide 17 mmol/L (22-30); Chloride 105 mmol/L (98-107); Estimated Creatinine Clearance 35 ml/min; Glucose 186 mg/dl (70-99); Potassium 4.7 mmol/L (3.5-5.1); Sodium 137 mmol/L (135-145); Total Bilirubin 0.7 mg/dl (0.2-1.3); eGFR 23.72
[2023-07-19] MEDS: NSS (PRESERVATIVE FREE) 10 ML IV (07:55)
[2023-07-19] MEDS: PROTONIX IV 40 MG IV (07:55)
--- NOTE | 2023-07-19 08:18 | CON.INTV ---
Consultation
Consultation Request
Date/Time Consultation Requested: 07/18/2023 - 2019
Date/Time Consultation Performed: 07/19/2023 - 811
Requesting Provider: Dr. Hanson
Performing Provider: Dr. Ellis
Reason for Consultation: Intubated and on pressors
Medical History
-
Chief Complaint: Abdominal pain
History of Present Illness:
63-year-old male active tobacco smoker with a past med history of GERD, left lower extremity stent on Plavix and hypertension who presented with right-sided abdominal pain and reduced appetite. Patient had a recent colonoscopy in 07/16/2023 as he
has a known colonic adenoma. During the colonoscopy, 125 mm polyp in the cecum was removed with mucosal resection and treated with APC, hot biopsy forceps and clips were placed. A 6 mm polyp in the sigmoid colon was also removed with cold snare.
Pathology from the cecal polyp showed a sessile serrated lesion, and the sigmoid polyp showed no significant pathologic abnormalities. 1 day after the colonoscopy he began having abdominal pain which increased, and he was not passing gas. In the
ER he was afebrile to 98 �F, he was hypotensive to 105/62 and saturating 100% on room air. Heart rate was 89. He had 9/10 left lower quadrant abdominal pain. He went to urgent CT abdomen/pelvis showing a pneumoperitoneum with suspected reactive
ileus/enteritis. Labs showed severe JD with creatinine 4.4, serum bicarbonate of 22, lactate of 2.5, leukocytosis to 16.8 with 35% bandemia. He was given pain medication with morphine, antibiotics with Zosyn, and 1 L NS 0.9% bolus. Surgery was
consulted and he went to the OR immediately for diagnostic laparoscopy which discovered a 5 mm perforation in the cecum close to the ileocecal valve. Patient then became hypotensive intraoperatively and pressures were started and patient was
converted to a laparotomy. Patient had a right hemicolectomy with abdominal washout and creation of end ileostomy. Patient remained Intubated due to his hemodynamic instability, and was transferred to the ICU for further care. Respite Care Provider service
is consulted for additional recommendations/management.
When I saw the patient this morning he was in no acute distress, on mechanical ventilation, answering questions and wanted the tube out of his throat. A-line was in place. He was saturating 96%, with labs showing improved serum creatinine. He
denied any chest pain, headache, fevers or chills. He did have some tenderness on the right side of his abdomen where the surgery was just done.
PMHx: GERD, hypertension, history of DVT, tobacco use disorder
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
Past Medical History
Past Medical History: Other (Above as per HPI)
Past Surgical History: Other (Above as per HPI)
Social History
Tobacco: Smoker
Alcohol: None
Drug: None
Family History
Family History: Reviewed & Not Pertinent
Allergies / Home Medications
Allergies
Allergy/AdvReac Type Severity Reaction Status Date / Time
No Known Allergies Allergy Verified 07/16/23 09:39
Home Medications
Medication Instructions Recorded Confirmed Last Taken Type
atorvastatin 40 mg tablet 40 mg PO QPM High cholesterol 05/27/20 07/18/23 07/17/23 History
fenofibrate nanocrystallized 145 145 mg PO QPM High cholesterol 05/27/20 07/18/23 07/17/23 History
mg tablet
lisinopril 20 mg tablet 20 mg PO HS Blood pressure 05/27/20 07/18/23 07/17/23 History
clopidogrel 75 mg tablet 75 mg PO HS Blood clot 11/26/21 07/18/23 5 Days Ago Rx
prevention/tx ##0 ~07/13/23
pantoprazole 20 mg tablet,delayed 20 mg PO DAILY 07/16/23 07/18/23 07/17/23 History
release
acetaminophen 500 mg tablet 1,000 mg PO ONCE PRN mild pain 07/18/23 07/18/23 07/17/23 History
(Tylenol Extra Strength)
albuterol sulfate 90 mcg/actuation 1 puff inhalation R Q4HPRN PRN 0107/18/23 07/17/23 History
aerosol inhaler dyspnea
multivit with min-folic 2 tab PO ONCE PRN supplement 07/18/23 07/18/23 07/17/23 History
acid-lutein 400 mcg-250 mcg
chewable tablet (Centrum Silver)
Review of Systems
-
Unable to Obtain full review of systems at this time due to: Patient Intubation
Vitals / Labs / Diagnostic Testing
Vital Signs
Temp Pulse Resp BP Pulse Ox
99.6 F 81 20 110/59 92
07/19/23 08:00 07/19/23 10:49 07/19/23 10:49 07/19/23 08:41 07/19/23 10:49
Lab Data
07/19/23 03:44
07/19/23 05:08
Laboratory Results
07/18/23 07/18/23 07/19/23
14:54 21:21 04:08
PT 15.2 H
INR 1.17
APTT 35.9 H
pH 7.28 L 7.32 L
pCO2 47 41
pO2 122 H 169 H
HCO3 22.1 21.1
O2 Delivery Level 98%
07/19/23
08:31
PT
INR
APTT
pH 7.32 L
pCO2 43
pO2 108
HCO3 22.2
O2 Delivery Level
Microbiology
07/18/23 09:39 Blood/Venous Blood Culture - Preliminary
No Growth in 24 hours- Final report to follow
Diagnostic Testing:
Physical Exam
-
HEENT: Normocephalic, Anicteric and Other (ETT in place)
Cardiovascular: S1/S2 and Peripheral Edema (Negative)
Respiratory: Wheeze (Negative), Rhonchi (Negative) and Other (Mechanical breath sounds)
GI: Soft, Non Distended and Non Tender
Neurology: Awake and Alert
Skin: Warm and Dry
General: Comfortable
Assessment
-
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 Patient had a recent
colonoscopy on 07/16/2023 as he has a known colonic adenoma. He had cecal polyp removed with mucosal resection treated with APC, hot biopsy forceps and clips were placed. 1 day later he developed abdominal pain and obstipation. CT imaging showed
pneumoperitoneum with reactive ileus/enteritis. Patient went for emergent diagnostic laparoscopy discovering a 5 mm perforation in the cecum, and intraoperatively became hypotensive, started on vasopressors and was converted to a laparotomy.
Patient underwent right hemicolectomy with abdominal washout and creation of an end ileostomy. Due to hemodynamic instability patient remained intubated and transferred to the ICU for further care with motor tune up specialist services consulted for additional
management/recommendations.
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
Impression:
#Septic shock with bandemia due to secondary peritonitis s/p cecal perforation
#Acute respiratory failure with hypoxemia + hypercapnea (respiratory under-compensation) on mechanical ventilation
#Cecal perforation s/p colonoscopy on 07/16/2023 with cecal polypectomy with mucosal resection s/p APC, hot biopsy forceps and clipping now s/p ex-lap with right hemicolectomy with washout and end-ileostomy creation
#JD due to shock with ATN
#Lactic acidosis due to septic shock
#Metabolic acidosis due to above
#Active tobacco smoker
#Hyperglycemia
#GERD
#Obesity
Plan:
- Continue pressure support trial on 10/26, check ABG in 30 minutes and extubate --> patient was extubated successfully to BiPAP as his blood gas shows he was under-compensating respiratory ribeiro; he otherwise has no Hx of COPD or chronic hypercapnea
(however he does have prior sHCO3 levels in the 28-29 range)
- After extubation, keep on BiPAP x 1 hr and then can wean to nasal cannula and maintain SpO2 >90-94%
- continue levophed and maintain MAP>65
- Continue Zosyn --> he will need 14 days total of Abx
- If he spikes fever then add micafungin and ID consult
- Follow up infectious workup - blood Cx collected 07/18
- remove corbett and place condom catheter
- Pain control
- Trend sCr and UOP
- Change IVF to HCO3 with sterile water
- Give DuoNebs BID for now as he was wheezing post-extubation
- Transfuse blood products as needed to keep Hb>7g/dL and plt>50k
- Replete K>4, Mg>2
- Will offer nicotine patch
- Encourage incentive spirometer and up OOB as tolerated assuming BP is stable and he is not in excessive pain
- Stress ulcer prophylaxis: N/A (will still order PPI as he takes at home)
- DVT ppx: start HSQ
Continue ICU level of care for this critically ill patient who still requires vasopressors. Once off pressors and if nursing needs are not high, will downgrade once HDN stable for >12 hrs
Critical care statement: A total of 40 minutes of critical care time was provided for this patient today. This includes management of unstable vital signs, evaluation of the patient at bedside, reviewing the patient's pertinent medical records
including radiographs, microbiology, laboratory evaluations, and discussion with primary team, consultants, pharmacy, nutrition, physical therapy, case management, charge nurse, critical care nursing, and respiratory therapy.
Data:
CT A/P without IV or PO contrast 07-18-2023:
1. Pneumoperitoneum which may be secondary to recent colonoscopy. The exact site of perforation is difficult to determine on this exam.�
2. Probable reactive ileus/enteritis.
CXR 07-19-2023: The endotracheal and enteric tubes appear well-positioned.
[2023-07-19 08:45] LABS: Absolute Neutrophils -Man Diff 9.3 10^3/uL (1.4-6.5); Band Neutrophils 34 % (0-3); Eosinophils 1 % (0-6); Lymphocytes 3 % (20-51); Monocytes 4 % (2-9); Segmented Neutrophils 58 % (42-75)
[2023-07-19 08:46] LABS: Total Cells Counted 100
[2023-07-19 08:51] LABS: Normal RBC Morphology Yes; Platelets Checked Yes
[2023-07-19 08:54] LABS: B.E. -3.9 mmol/L; HCO3 22.2 mmol/L (21-28); O2 Saturation % 98.7 % (94-98); PCO2 43 mmHg (35-48); PO2 108 mmHg (83-108); pH 7.32 (7.35-7.45)
--- NOTE | 2023-07-19 09:20 | W.PN.ANS.POP ---
Anesthesia Post Operative
- Anesthesia Post Op Note
Vital Signs Stable-See Nursing Note: Yes
Airway Patent: Yes (still intubated, plan to extubate later this morning per RN report)
Adequate Pain Control: Yes
Change in Mental Status: No
Current Postoperative Nausea & Vomiting: No
Anesthesia Complications: No
General Anesthetic Recall: No
Unplanned Admission: No
Post Op Hydration Adequate: Yes
--- NOTE | 2023-07-19 09:43 | W.PN.CRS1 ---
Today's Communication / Plan
-
Wean to extubate
Keep NGT in place
Assessment/Plan
-
63-year-old man with a PMH of GERD, hypertension, hyperlipidemia and PVD s/p LLE stent who presents with acute abdominal pain starting 1 day prior to admission; on 07/16/2023, he underwent an colonoscopic EMR for a large cecal polyp; the polyp was
removed with a snare, the edges were treated with APC and hemostasis achieved with hot biopsy forceps, clips were placed to reapproximate the mucosa; after the procedure he did well until the morning of 07/17, he started having abdominal pain
associated with bloating; the pain did not partha so he came to the ED on 07/18, found to have a WBC of 16.8, and JD with a Cr of 4.[address] showing pneumoperitoneum of uncertain origin
POD 1 diagnostic laparoscopy, exlap, right hemicolectomy, end-ileostomy creation (intra-op had hypotension requiring pressors, but resolved by the end of the case)
Afebrile, vitals WNL; UOP 620
� Appreciate hospitalist and ICU team
� Wean vent to extubation
� Keep n.p.o. with IVF; please keep NGT after extubation to low continuous suction
� Pain control
�Continue IV Zosyn
�Appreciate nephrology consult for severe JD
-keep corbett for accurate UOP
Subjective Data
Subjective Data
Date of Service: July 19, 2023
No overnight events. Per nurse, plan for extubation this morning.
Pain controlled. Awake and alert.
Objective Data
-
Vital Signs
Temp Pulse Resp BP Pulse Ox
99.6 F 73 21 110/59 93
07/19/23 08:00 07/19/23 08:45 07/19/23 08:45 07/19/23 08:41 07/19/23 08:45
Intake & Output
07/18/23 07/19/23 07/20/23
06:59 06:59 06:59
Intake Total 1761.9 / 1966.1 601.9 / 601.9
Output Total 1025 / 1025 140 / 140
Balance 736.9 / 941.1 461.9 / 461.9
Intake:
IV fluids (Total) 1601.9 / 1806.1 601.9 / 601.9
Nss 1,000 ml @ 125 mls/hr IV . 1050 / 1175 375 / 375
Q8H JOSIANE Rx#:[id number]
fentanyl 70 / 75 12.5 / 12.5
levophed 435.0 / 502.5 195.0 / 195.0
precedex 46.9 / 53.6 19.4 / 19.4
IV piggybacks 160 / 160
Output:
Gastrointestinal tube output ( 500 / 500
Total)
[place] Sump 500 / 500
Urine, Corbett 525 / 525 140 / 140
Lab Results
07/19/23 03:44
07/19/23 05:08
Physical Exam
-
General: No Acute Distress and Other (Awake, alert, intubated)
HEENT: Grossly Normal
Abdomen: Soft, Distended (Mildly to moderately distended), Tender (Appropriately tender near incisions), No Guarding and No Rebound
Skin: Warm and Dry
Wound: Dressing in Place (Aquacel on midline and Tegaderms with gauze on port sites)
[2023-07-19] MEDS: SODIUM BICARBONATE 1150 MEQ IV ×2 (10:17→20:15)
[2023-07-19] MEDS: DUONEB 3 ML INH ×2 (10:46→20:02)
--- NOTE | 2023-07-19 10:55 | W.PN.NEPH.PH ---
Today's Communication / Plan
-
cont IVF
Assessment/Plan
-
Assessment:
Severe sepsis 2/2 to pneumoperitoneum s/p OR rt hemicolectomy and end ileostomy on 07/18
Lactic acidosis
JD (Cr baseline 1)
HTN
GERD
LLE with stent in past
Plan:
JD likely prerenal in setting of sepsis
UA is bland, cr improving with IVF
evolving met acidosis-agree changing bicarb IVF per ICU
non oliguric with corebtt, monitor GI out put
wean presson as able to keep MAP>65
extubated and wean BIPAP as toelrates
follow labs
adjust meds for changing GFR
d/w nursing
CC time spent 31min
-
-
Date of Service: July 19, 2023
CC / HPI / ROS
-
Chief Complaint:
JD
History of Present Illness:
cr better at 2.9, non oliguric with corbett
GI out put 500cc
weaning levo this am
s/p extubation this am
Review of Systems:
no cp or sob at rest
no fever
Labs
-
Labs:
WBC 10.2 10^3/uL (4.8-10.8) 07/19/23 03:44
RBC 4.72 10^6/uL (4.70-6.10) 07/19/23 03:44
Hgb 14.1 g/dL (13.0-18.0) 07/19/23 03:44
Hct 42.2 % (39.0-52.0) 07/19/23 03:44
Plt Count 261 10^3/uL (130-400) D 07/19/23 03:44
Sodium 137 mmol/L (135-145) 07/19/23 05:08
Potassium 4.7 mmol/L (3.5-5.1) 07/19/23 05:08
Chloride 105 mmol/L (98-107) 07/19/23 05:08
Carbon Dioxide 17 mmol/L (22-30) L 07/19/23 05:08
BUN 58 mg/dl (9-20) H 07/19/23 05:08
Creatinine 2.9 mg/dL (0.7-1.3) H 07/19/23 05:08
eGFR 23.72 07/19/23 05:08
Glucose 186 mg/dl (70-99) H 07/19/23 05:08
Calcium 8.5 mg/dl (8.4-10.2) 07/19/23 05:08
Albumin 2.6 g/dl (3.5-5.0) L D 07/19/23 05:08
Physical Exam
-
Vital Signs:
Vital Signs
Temp Pulse Resp BP Pulse Ox
99.6 F 81 20 110/59 92
07/19/23 08:00 07/19/23 10:49 07/19/23 10:49 07/19/23 08:41 07/19/23 10:49
Cardiovascular:: Regular rate and rhythm
Respiratory:: Bilateral: Wheeze
Lung Excursion:: Normal
Abdomen:: Distended and Soft
Extremity Edema:: None: Bilateral:
Corbett Catheter: Yes
--- NOTE | 2023-07-19 11:10 | WOUNDNOTE ---
[facility] RN Note: Patient s/p end ileostomy. Stoma pink and slightly budded. Appliance intact. Instructed patient how to open and close pouch, how to cut wafer and snap on pouch. Ostomy supplies left at bedside (Andrew wafer # [id number], Valerie seals and
Andrew pouch # [id number]). Appliance change tentatively planned on Saturday. Will include with appliance change teaching.
[2023-07-19] MEDS: OFIRMEV 100 IV ×2 (11:40→17:09)
[2023-07-19] MEDS: DILAUDID 0.5 MG IV ×2 (12:28→22:05)
[2023-07-19 12:32] LABS: B.E. -1.9 mmol/L; HCO3 24.7 mmol/L (21-28); O2 Saturation % 78.9 % (94-98); PCO2 48 mmHg (35-48); pH 7.32 (7.35-7.45)
[2023-07-19 12:37] LABS: PO2 47 mmHg (83-108)
[2023-07-19 12:49] LABS: Blood Urea Nitrogen 56 mg/dl (9-20); Calcium 7.8 mg/dl (8.4-10.2); Carbon Dioxide 26 mmol/L (22-30); Chloride 106 mmol/L (98-107); Estimated Creatinine Clearance 41 ml/min; Glucose 122 mg/dl (70-99); Potassium 4.5 mmol/L (3.5-5.1); Sodium 135 mmol/L (135-145); eGFR 28.34
--- NOTE | 2023-07-19 13:02 | PTCARENOTE ---
Pt extubated at 10am. BiPAP x1 hr, now on 6L NC. Precedex, Fentanyl and Levophed gtts weaned off. A-line positional this am. D/c'd d/t no longer had blood return. Noon ABG actually VBG.
IVF continue. Ofirmev and Hydromorphone for pain.
NGT to low intermittent suction. About 200ml green drainage so far this shift. Abdominal inc C/D/I. Serosanguineous drainage from ostomy.
All other assessments unchanged.
--- NOTE | 2023-07-19 15:01 | CM ---
Patient seen at bedside, patient extubated and states that he lives with his in a ranch style home. Patient stated that he has no DME and he goes to [facility] but sees a CIVIL TRANSPORTATION ENGINEER and would like to switch to a Physician if possible,
patient asked for list of PCP options. Patient stated that prior to admission he was driving and working. Patient uses the [facility] in [place] for pharmacy needs. CM will continue to follow for discharge planning needs.
Plan; home with VN; pending pt/ot assessment when available.
[2023-07-19] MEDS: HEPARIN 5000 UNITS SC (17:09)
--- NOTE | 2023-07-19 17:36 | PTCARENOTE ---
Pt OOB in chair since 1330. Reports abdominal pain as tolerable. NGT output total of 600ml this shift. All other assessments unchanged.
--- NOTE | 2023-07-19 18:25 | W.PN.HOSP.TC ---
Today's Communication/Plan
-
continue in ICU
Off Pressors
follow labs
Assessment / Plan
Assessment / Plan
Severe sepsis with shock 2/2 pneumoperitoneum
underwent polypectomy 07/16
POD #1 diagnostic lap with rt hemicolectomy, end ileostomy creation.
has been extubated. Still with abd pain. Not passing flatus. Off Pressors
WBC 16.8-->10.2-->10.2k
ARF
BUN/Creat 42/4.4-->56/2.5
input of nephrology appreciated
VDRF
s/p extubation, doing well
P:IVF
continue in ICU
follow labs
full code
Anticipated Discharge: > 48 hours
Subjective/Interval History
-
Date of Service: July 19, 2023
awake, alert, conversant
Objective Data
-
Labs:
Laboratory Results
07/19/23 07/19/23
08:31 12:01
HCO3 22.2 24.7
Sodium 135
Potassium 4.5
Chloride 106
Carbon Dioxide 26
BUN 56 H
Creatinine 2.5 H
Glucose 122 H
Calcium 7.8 L
Vital Signs:
Vital Signs
Temp Pulse Resp BP Pulse Ox
98.2 F 79 16 124/68 95
07/19/23 15:52 07/19/23 18:15 07/19/23 18:15 07/19/23 18:00 07/19/23 18:15
I&O
07/18/23 07/19/23 07/20/23
06:59 06:59 06:59
Intake Total 1761.9 / 1966.1 2042.9 / 2041.9
Output Total 1025 / 1025 715 / 715
Balance 736.9 / 941.1 1327.9 / 1327.9
Review of Systems
-
History Source: Patient and Coordinated Provider
Constitutional: Denies Fever
EENT: Reports No Symptoms Reported
Respiratory: Reports No Symptoms
Cardiac: Reports No Symptoms
Abdomen/GI: Reports Abdominal Pain
Physical Exam
-
General: Well Developed, Well Nourished and No Apparent Distress
HEENT: Normocephalic, Atraumatic, Moist Mucous Membranes and Other (NG tube in place)
Respiratory: Clear to Auscultation; Negative Wheezes, Rales or Rhonchi
Cardiac: Regular Rhythm and S1/S2
GI: Soft and Ostomy; Negative Normal Bowel Sounds (rare BS rt lower abd, otherwise absent)
Genito-urinary: Menjivar
Neuro: Awake, Alert and Oriented
--- NOTE | 2023-07-19 19:30 | W.PN.UPDATE ---
Update Note
Progress Note Update
Patient pulled out nasogastric tube. Contacted colorectal Dr. Dunne, output from ileostomy is serosang small amount, recommended NGT to be replaced. Abdomen large round distended. Placed NGT in right nares, good auscultation, gastric secretions
noted in tube, will obtain xray for confirmation. Educated patient on importance of keeping NGT in place and encouraged incentive spirometry.
--- NOTE | 2023-07-19 19:56 | W.PN.UPDATE ---
Update Note
Progress Note Update
Pt is s/p right hemicolectomy and ileostomy after p/w colonic perforation (delayed perf) post EMR 2 days prior. Stable post op. Appreciate colorectal surgery care. Will follow.
--- NOTE | 2023-07-19 20:09 | PTCARENOTE ---
Went into pt's room with offgoing RN for handoff/inspect pt's surgical dressing. Pt's NGT noted to be almost completely dislodged from his nose, he had accidently hooked it around his hand while sitting in the chair. Archana SANCHEZ made aware and
contacted colorectal surgery who advised her to replace NGT. Attempted placement of 16Fr [place] sump tube in R nare, unsuccessful and small amount of blood started draining from nare. Attempted L side and tube went in easily. CXR ordered. Hooked to
LIS at this time, tube safety pinned to gown.
--- NOTE | 2023-07-19 20:10 | W.PN.SEPSIS ---
Sepsis
Vital Signs
Temp Pulse Resp BP Pulse Ox
98.2 F 84 18 124/68 95
07/19/23 15:52 07/19/23 20:03 07/19/23 20:03 07/19/23 18:00 07/19/23 20:03
Physical Exam
Physical Exam:
A focused exam was performed after fluid resuscitation.
Capillary Refill
Bilateral Upper Extremity:
Cyn Time: Less than 3 sec
Bilateral Lower Extremity:
Cyn Time: Less than 3 sec
Pulse Evaluation
Bilateral Radial:
Pulse Evaluation: Present
Bilateral Dorsalis Pedis:
Pulse Evaluation: Present
--- NOTE | 2023-07-19 21:21 | PTCARENOTE ---
Assumed care of pt at 1900. Pt is A/O x4, pleasant and cooperative with care. When asked about pain, pt reports that it's 'more discomfort than pain', informed pt that he can have pain medication if he feels like he needs it, provided education that
it is better to not have the pain get out of control because then it can affect his ability to move, deep breathe, etc which is important after surgery. Pt voiced understanding and stated he will probably ask for pain medication around 2200 when he
goes to sleep. Pt OOB to chair at start of shift, states that he is more comfortable in the chair and would like to stay there. Air cushion placed on chair, pt able to stand up with minimal assistance and march in place, do ROM in his legs/feet.
Physical assessment completed, see nursing shift assessment flowsheet for full details. SR with PVCs noted on monitor, SpO2 93-95% on 6LNC. Call davila and personal belongings within reach.
[2023-07-20] VITALS (18 sets, daily range): BP systolic 113–159; BP diastolic 64–88; BMI 44.6
[2023-07-20] MEDS: OFIRMEV 100 IV ×2 (00:12→05:45)
[2023-07-20] MEDS: HEPARIN 5000 UNITS SC ×4 (00:13→23:54)
--- NOTE | 2023-07-20 00:27 | PTCARENOTE ---
Assessment unchanged. Pt remains OOB to chair as he feels this is more comfortable. Has received Dilaudid x1 this shift. Midline abd dressing with slightly more shadowing noted but otherwise dry and intact. SpO2 97% on 6LNC, SR 70s-80s with PVCs on
monitor.
[2023-07-20] MEDS: ZOSYN 50 IV ×4 (03:52→21:48)
[2023-07-20] MEDS: SODIUM BICARBONATE 1150 MEQ IV (03:52)
[2023-07-20 04:17] LABS: Venous Blood Gas B.E. 8.4 mmol/L (-4 to +4); Venous Blood Gas HCO3 36.2 mmol/L (22-27); Venous Blood Gas O2 Sat % 79.4 %; Venous Blood Gas pCO2 64 mmHg (35-48); Venous Blood Gas pH 7.36 (7.32-7.43); Venous Blood Gas pO2 50 mmHg (30-50)
[2023-07-20] MEDS: DILAUDID 0.5 MG IV ×5 (04:18→23:59)
[2023-07-20 04:19] LABS: Venous Blood Gas O2 Therapy 6L/min NC
[2023-07-20 04:20] LABS: % Basophils 0.4 % (0-2); % Eosinophils 0.3 % (0-6); % Immature Granulocytes 0.3 % (0-0.5); % Lymphocytes 7.8 % (20.5-51.1); % Monocytes 5.9 % (1.7-9.3); % Neutrophils 85.3 % (42.2-75.2); Absolute Lymphocytes 0.6 10^3/uL (1.2-3.4); Absolute Monocytes 0.5 10^3/uL (0.1-0.6); Absolute Neutrophils 6.7 10^3/uL (1.4-6.5); Hematocrit 41.1 % (39.0-52.0); Hemoglobin 13.4 g/dL (13.0-18.0); Mean Corp Hgb Conc. 32.6 g/dL (33.0-37.0); Mean Corpuscular Hgb 29.8 pg (27.0-31.0); Mean Corpuscular Volume 91.5 fL (80.0-94.0); Mean Platelet Volume 12.4 fL (7.4-10.4); Nucleated Red Blood Cells % 0 % (-); Platelet Count 207 10^3/uL (130-400); Red Blood Cell Count 4.49 10^6/uL (4.70-6.10); Red Cell Dist. Width 14.6 % (11.5-14.5); White Blood Cell Count 7.9 10^3/uL (4.8-10.8)
--- NOTE | 2023-07-20 04:29 | PTCARENOTE ---
Assessment unchanged. Able to stand up out of recliner for weight on standing scale, remained standing for approx 10 min. SR 70s on monitor with PVCs. SpO2 94-95% on 6LNC. Medicated with IV Dilaudid for 7/10 pain to abd. Call davila and personal items
within reach.
[2023-07-20 04:33] LABS: ALT (SGPT) 30 U/L (0-50); AST (SGOT) 26 U/L (17-59); Albumin 2.8 g/dl (3.5-5.0); Alkaline Phosphatase 49 U/L (38-126); Blood Urea Nitrogen 54 mg/dl (9-20); Calcium 8.3 mg/dl (8.4-10.2); Carbon Dioxide 36 mmol/L (22-30); Chloride 99 mmol/L (98-107); Estimated Creatinine Clearance 57 ml/min; Glucose 121 mg/dl (70-99); Magnesium 2.6 mg/dl (1.6-2.3); Phosphorus 4.4 mg/dl (2.5-4.5); Sodium 138 mmol/L (135-145); Total Bilirubin 0.6 mg/dl (0.2-1.3); Total Protein 5.4 g/dl (6.3-8.2); eGFR 42.03
[2023-07-20] MEDS: DUONEB 3 ML INH ×2 (07:25→19:53)
--- NOTE | 2023-07-20 08:00 | W.PN.INTV ---
Today's Communication / Plan
Recommendations
Up OOB as tolerated
ABx
Encourage IS
Pain control
NGT and monitor output
IVF for now but careful not to cause volume overload
Downgrade out of ICU to telemetry. Sports Management Professor/pulmonary service will now sign off. Please reconsult if respiratory issues develop or if there are any additional questions or concerns.
Assessment
-
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 Patient had a recent
colonoscopy on 07/16/2023 as he has a known colonic adenoma. He had cecal polyp removed with mucosal resection treated with APC, hot biopsy forceps and clips were placed. 1 day later he developed abdominal pain and obstipation. CT imaging showed
pneumoperitoneum with reactive ileus/enteritis. Patient went for emergent diagnostic laparoscopy discovering a 5 mm perforation in the cecum, and intraoperatively became hypotensive, started on vasopressors and was converted to a laparotomy.
Patient underwent right hemicolectomy with abdominal washout and creation of an end ileostomy. Due to hemodynamic instability patient remained intubated and transferred to the ICU for further care with laborer demolition services consulted for additional
management/recommendations.
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
Impression:
#Septic shock with bandemia due to secondary peritonitis s/p cecal perforation - shock state resolved
#Acute respiratory failure with hypoxemia + hypercapnea (respiratory under-compensation) was on mechanical ventilation 07/18 and extubated on 07/19
#Cecal perforation s/p colonoscopy on 07/16/2023 with cecal polypectomy with mucosal resection s/p APC, hot biopsy forceps and clipping now s/p ex-lap with right hemicolectomy with washout and end-ileostomy creation
#JD due to shock with ATN - JD improving
#Lactic acidosis due to septic shock - shock state and lactic acidosis both resolved
#Metabolic acidosis due to above - acidosis resolved
#Active tobacco smoker
#Hyperglycemia
#GERD
#Obesity
Plan:
- Maintain MAP>65
- Continue Zosyn --> he will need 14 days total of Abx
- If he spikes fever then add micafungin and ID consult
- Follow up infectious workup - blood Cx collected 07/18
- I/O with condom catheter
- Pain control
- Trend sCr and UOP
- Change IVF from HCO3 to NS as he is now alkalemic; check AM VBG to assure pCO2 and pH are stable
- Give DuoNebs BID for now as he was wheezing post-extubation
- Transfuse blood products as needed to keep Hb>7g/dL and plt>50k
- Replete K>4, Mg>2
- Will offer nicotine patch
- Encourage incentive spirometer and up OOB as tolerated
- Stress ulcer prophylaxis: N/A (will still order PPI as he takes at home)
- DVT ppx: HSQ
Dispo: Downgrade out of ICU to telemetry. Sports Management Professor/pulmonary service will now sign off. Thank you for allowing me to be involved in care of the patient. Please reconsult if respiratory issues develop or if there are any additional questions
or concerns.
Data:
CT A/P without IV or PO contrast 07-18-2023:
1. Pneumoperitoneum which may be secondary to recent colonoscopy. The exact site of perforation is difficult to determine on this exam.�
2. Probable reactive ileus/enteritis.
CXR 07-19-2023: The endotracheal and enteric tubes appear well-positioned.
Subjective Dataa
Subjective Data
Date of Service:
Date of Service: July 20, 2023
Chief Complaint: Sports Management Professor Follow Up
Subjective:
Patient seen this morning. NG tube pulled out by accident overnight and it was replaced. Current BP 159/78, heart rate 91 and saturating 94% on 3 L/min nasal cannula. He endorses some belly discomfort. Brown stool seen in ileostomy bag. He
denies chest pain, shortness of breath, fevers or chills.
Review of Systems
General: Other (12 point ROS performed and is negative unless mentioned above.)
Objective Data
Data Reviewed
Vital Signs / I&O / Oxygen:
Vital Signs
Temp Pulse Resp BP Pulse Ox
97.9 F 86 16 157/86 94
07/20/23 11:26 07/20/23 14:00 07/20/23 14:00 07/20/23 14:00 07/20/23 08:00
Intake and Output
07/19/23 07/20/23 07/21/23
06:59 06:59 06:59
Intake Total 1761.9 / 1966.1 3962.9 / 4087.9 875 / 875
Output Total 1025 / 1025 2220 / 2220
Balance 736.9 / 941.1 1742.9 / 1867.9 875 / 875
SaO2 [A/C] 93
SaO2 94
Nasal Cannula flow liters per 3
minute
Physical Exam
General: Comfortable and Chills (Negative)
HEENT: Normocephalic, Anicteric and Other (nasogastric tube seen)
Cardiovascular: S1-S2 and Peripheral Edema (Negative)
Respiratory: Clear, Wheeze (Negative), Crackles (Negative) and Rhonchi (Negative)
GI: Soft, Non Distended, Non Tender and Other (ileostomy bag with brown, loose stool)
Neurology: Awake and Alert
Skin: Warm and Dry
Labs/Micro/Reports
Lab Data
07/20/23 04:08
07/20/23 04:08
Microbiology
07/18/23 12:09 Blood/Venous Blood Culture - Preliminary
No Growth in 48 hours- Final report to follow
01/25/24 09:39 Blood/Venous Blood Culture - Preliminary
No Growth in 48 hours- Final report to follow
[2023-07-20] MEDS: PROTONIX IV 40 MG IV (08:11)
[2023-07-20] MEDS: NSS (PRESERVATIVE FREE) 10 ML IV (08:11)
--- NOTE | 2023-07-20 08:18 | PTCARENOTE ---
Rec'd pt at 0700. Pt AAOx3, sitting OOB in recliner chair. Pt states that it's better on his back than laying in bed. Monitor SR. Lungs CTA, pox 98% 6LNC. Abd round/full. Midline aquacell with old drainage noted. 3 lap sites with dressings C/D/I.
+hypo BS, NGT to LIWS, bilious drainage. Colostomy intact, stoma pink/moist. Menjivar draining yellow urine. Pt assisted to stand at bedside to reposition and march in place.
[2023-07-20] MEDS: NSS 1000 IV ×2 (10:52→20:14)
--- NOTE | 2023-07-20 11:16 | PTCARENOTE ---
Pt's at bedside, updated. Pt remains in recliner chair, stands up at bedside for a few minutes at a time and marches in place. PRN Dilaudid given with +relief.
--- NOTE | 2023-07-20 12:35 | W.PN.NEPH.PH ---
Today's Communication / Plan
-
cont IVF
Assessment/Plan
-
Assessment:
Severe sepsis 2/2 to pneumoperitoneum s/p OR rt hemicolectomy and end ileostomy on 07/18
Lactic acidosis
JD (Cr baseline 1)
HTN
GERD
LLE with stent in past
Plan:
JD likely prerenal in setting of sepsis
UA bland, cr improving with IVF
met acidosis-better now met alkalosis, IVF changed to NS
non oliguric with corbett, monitor GI out put
BP stable off pressors
wean O2 as able
follow labs
adjust meds for changing GFR
d/w nursing
-
-
Date of Service: July 20, 2023
CC / HPI / ROS
-
Chief Complaint:
JD
History of Present Illness:
cr better at 1.8, non oliguric with corbett
GI out put 700cc
BP stbale off pressors
on 1-2lit of O2
Review of Systems:
no cp or sob at rest
abd pain tolerable
Labs
-
Labs:
WBC 7.9 10^3/uL (4.8-10.8) 07/20/23 04:08
RBC 4.49 10^6/uL (4.70-6.10) L 07/20/23 04:08
Hgb 13.4 g/dL (13.0-18.0) 07/20/23 04:08
Hct 41.1 % (39.0-52.0) 07/20/23 04:08
Plt Count 207 10^3/uL (130-400) D 07/20/23 04:08
Sodium 138 mmol/L (135-145) 07/20/23 04:08
Potassium 4.0 mmol/L (3.5-5.1) 07/20/23 04:08
Chloride 99 mmol/L (98-107) 07/20/23 04:08
Carbon Dioxide 36 mmol/L (22-30) H 07/20/23 04:08
BUN 54 mg/dl (9-20) H 07/20/23 04:08
Creatinine 1.8 mg/dL (0.7-1.3) H 07/20/23 04:08
eGFR 42.03 07/20/23 04:08
Glucose 121 mg/dl (70-99) H 07/20/23 04:08
Calcium 8.3 mg/dl (8.4-10.2) L 07/20/23 04:08
Phosphorus 4.4 mg/dl (2.5-4.5) 07/20/23 04:08
Albumin 2.8 g/dl (3.5-5.0) L 07/20/23 04:08
Physical Exam
-
Vital Signs:
Vital Signs
Temp Pulse Resp BP Pulse Ox
97.9 F 84 15 150/77 94
07/20/23 11:26 07/20/23 11:00 07/20/23 11:00 07/20/23 11:00 07/20/23 08:00
Cardiovascular:: Regular rate and rhythm
Respiratory:: Bilateral: CTA
Lung Excursion:: Normal
Abdomen:: Distended and Soft
Extremity Edema:: None: Bilateral:
Corbett Catheter: Yes
--- NOTE | 2023-07-20 13:00 | W.PN.CRS1 ---
Today's Communication / Plan
-
Continue current measures.
Assessment/Plan
-
POD 2.
1. high NGT output and some stoma output. Continue NGT for now.
2. vitals and labs reasonable.
3. continue antibiotics.
4. continue other measures.
5. appreciate help of hospitalists/ICU staff.
6. ok with transfer out of ICU from surgical perspective.
Subjective Data
Procedure
ex lap/R colectomy/end ileostomy 07/18/23
Subjective Data
Date of Service: July 20, 2023
Seen earlier in day.
Sitting up in chair.
No complaints.
Objective Data
-
Vital Signs
Temp Pulse Resp BP Pulse Ox
97.9 F 84 15 150/77 94
07/20/23 11:26 07/20/23 11:00 07/20/23 11:00 07/20/23 11:00 07/20/23 08:00
Intake & Output
07/19/23 07/20/23 07/21/23
06:59 06:59 06:59
Intake Total 1761.9 / 1966.1 3962.9 / 4087.9 575 / 575
Output Total 1025 / 1025 2220 / 2220
Balance 736.9 / 941.1 1742.9 / 1867.9 575 / 575
Intake:
Oral fluids 120 / 120
IV fluids (Total) 1601.9 / 1806.1 3392.9 / 3517.9 575 / 575
Nss 1,000 ml @ 100 mls/hr IV . 200 / 200
Q10H JOSIANE Rx#:[id number]
Nss 1,000 ml @ 125 mls/hr IV . 1050 / 1175 500 / 500
Q8H JOSIANE Rx#:[id number]
Sterile Water For Injection 2625 / 2750 375 / 375
1000 ml 1,000 ml @ 125 mls/hr
IV .Q9H12M JOSIANE with Sodium
Bicarbonate 150 Meq Rx#:
[id number]
fentanyl 70 / 75 13.5 / 13.5
levophed 435.0 / 502.5 235.0 / 235.0
precedex 46.9 / 53.6 19.4 / 19.4
IV piggybacks 160 / 160 450 / 450
Output:
Gastrointestinal tube output ( 500 / 500 700 / 700
Total)
[place] Sump 500 / 500 700 / 700
Urine, Menjivar 525 / 525 1520 / 1520
Lab Results
07/20/23 04:08
07/20/23 04:08
Physical Exam
-
General: No Acute Distress
Chest: Clear
Cardiovascular: Regular Rate & Rhythm
Abdomen: Distended, Tender (incisional) and Other (stoma viable with some bilious output)
Extremities: No Calf Tenderness
Incision: Serous Drainage (dressings)
--- NOTE | 2023-07-20 13:59 | W.PN.UPDATE ---
Update Note
Progress Note Update
Pt feels somewhat better today. Stable post op course. Will continue to follow.
--- NOTE | 2023-07-20 18:14 | W.PN.HOSP.TC ---
Today's Communication/Plan
-
adjust IVF
transfer OOICU
Assessment / Plan
Assessment / Plan
Severe sepsis with shock 2/2 pneumoperitoneum
underwent polypectomy 07/16
POD #2 diagnostic lap with rt hemicolectomy, end ileostomy creation.
has been extubated. Still with abd pain, but lessened. Passing stool into ostomy bag. Off Pressors, BP stable
WBC 16.8-->10.2-->10.2-->7.9k
CRS would like to continue NG Gomco
ARF
BUN/Creat 42/4.4-->56/2.5-->54/1.8
input of nephrology appreciated. [place] to be prerenal from sepsis, improving
VDRF
s/p extubation, doing well
P:IVF
transfer out of ICU
follow labs
full code
Anticipated Discharge: > 48 hours
Subjective/Interval History
-
Date of Service: July 20, 2023
Awake, alert, denies significant abd pain
Objective Data
-
Vital Signs:
Vital Signs
Temp Pulse Resp BP Pulse Ox
98.1 F 84 12 159/78 95
07/20/23 15:48 07/20/23 17:00 07/20/23 17:00 07/20/23 15:00 07/20/23 15:55
I&O
07/19/23 07/20/23 07/21/23
06:59 06:59 06:59
Intake Total 1761.9 / 1966.1 3962.9 / 4087.9 1175 / 1175
Output Total 1025 / 1025 2220 / 2220
Balance 736.9 / 941.1 1742.9 / 1867.9 1175 / 1175
Review of Systems
-
History Source: Patient and Coordinated Provider
Constitutional: Denies Fever
EENT: Reports No Symptoms Reported
Respiratory: Reports No Symptoms
Cardiac: Reports No Symptoms
Abdomen/GI: Reports Abdominal Pain (that has lessened)
Physical Exam
-
General: Well Developed, Well Nourished and No Apparent Distress
HEENT: Normocephalic, Atraumatic, Moist Mucous Membranes and Other (NG tube in place)
Respiratory: Clear to Auscultation; Negative Wheezes, Rales or Rhonchi
Cardiac: Regular Rhythm and S1/S2
GI: Soft and Ostomy (stool in ostomy bag); Negative Normal Bowel Sounds (BS slightly more active today)
Genito-urinary: Menjivar
Neuro: Awake, Alert and Oriented
--- NOTE | 2023-07-20 21:32 | PTCARENOTE ---
Assumed care of pt at 1900. Pt is A/O x4, pleasant and cooperative with care. OOB to chair, able to stand up with [id number] assistance and will march in place, able to maneuver the chair to recline or elevate his legs. Pt is currently telemetry
LOC. SR with BBB on monitor. Spot checking SpO2, 93% on 3LNC. NGT to L nare to LIS with dark brown drainage noted. Midline abd incision with shadowing/drainage noted but dressing is intact. Colostomy starting to put out brown/stool-like drainage and
positive BS noted in all 4 quadrants. See nursing shift assessment flowsheet for futher physical assessment details. Medicated for Dilaudid PRN, see EMAR. Call davila and personal items within reach.
[2023-07-21 04:05] VITALS: BMI 44.7
[2023-07-21] MEDS: ZOSYN 50 IV ×4 (04:07→22:00)
[2023-07-21] MEDS: DILAUDID 0.5 MG IV ×3 (04:07→22:00)
[2023-07-21 04:11] VITALS: BP 146/75
[2023-07-21 04:50] LABS: Venous Blood Gas B.E. 10.1 mmol/L (-4 to +4); Venous Blood Gas HCO3 37.5 mmol/L (22-27); Venous Blood Gas O2 Sat % 88.8 %; Venous Blood Gas pCO2 62 mmHg (35-48); Venous Blood Gas pH 7.39 (7.32-7.43); Venous Blood Gas pO2 57 mmHg (30-50)
[2023-07-21 04:54] LABS: % Basophils 0.3 % (0-2); % Eosinophils 0.6 % (0-6); % Immature Granulocytes 0.8 % (0-0.5); % Lymphocytes 6.1 % (20.5-51.1); % Monocytes 9.3 % (1.7-9.3); % Neutrophils 82.9 % (42.2-75.2); Absolute Eosinophils 0.1 10^3/uL (0-0.7); Absolute Immature Granulocytes 0.1 10^3/uL (0-0.05); Absolute Lymphocytes 0.6 10^3/uL (1.2-3.4); Absolute Neutrophils 8.5 10^3/uL (1.4-6.5); Hematocrit 41.7 % (39.0-52.0); Hemoglobin 13.5 g/dL (13.0-18.0); Mean Corp Hgb Conc. 32.4 g/dL (33.0-37.0); Mean Corpuscular Volume 92.7 fL (80.0-94.0); Mean Platelet Volume 12.3 fL (7.4-10.4); Nucleated Red Blood Cells % 0 % (-); Platelet Count 202 10^3/uL (130-400); Red Cell Dist. Width 14.8 % (11.5-14.5); White Blood Cell Count 10.2 10^3/uL (4.8-10.8)
[2023-07-21 05:18] LABS: Blood Urea Nitrogen 35 mg/dl (9-20); Calcium 8.6 mg/dl (8.4-10.2); Carbon Dioxide 36 mmol/L (22-30); Chloride 102 mmol/L (98-107); Estimated Creatinine Clearance 93 ml/min; Glucose 86 mg/dl (70-99); Magnesium 2.9 mg/dl (1.6-2.3); Phosphorus 2.6 mg/dl (2.5-4.5); Potassium 3.9 mmol/L (3.5-5.1); Sodium 141 mmol/L (135-145); eGFR > 60.00
[2023-07-21] MEDS: NSS 1000 IV ×2 (05:57→15:44)
[2023-07-21] MEDS: DUONEB 3 ML INH ×2 (07:18→19:50)
[2023-07-21] MEDS: NSS (PRESERVATIVE FREE) 10 ML IV (08:22)
[2023-07-21] MEDS: PROTONIX IV 40 MG IV (08:22)
[2023-07-21] MEDS: HEPARIN 5000 UNITS SC ×3 (08:22→22:01)
[2023-07-21 08:28] VITALS: BP 166/80
--- NOTE | 2023-07-21 09:38 | PTCARENOTE ---
Rec'd pt at 0700. Pt AAOx3, follows commands, MORIN. Sitting OOB in recliner chair, stood at bedside to august in place. Monitor SR. Lungs dim, pox 97% on 3LNC. Abd full/round. +hypo BS. Midline aquacell dressing with old drainage noted. 2 lap site
dressing C/D/I. Colostomy with liquid brown stool. NGT to LINARCISA, bilious drainage. Menjivar draining yellow urine. Pt for transfer to tele. Pt denies any pain at this time.
[2023-07-21 11:14] VITALS: BP 127/77
--- NOTE | 2023-07-21 11:37 | W.PN.CRS1 ---
Addendum entered and electronically signed by Luke Dunne MD 07/21/23 14:50:
I saw and examined the patient.
The PA's note was reviewed and I agree with the note.
Comment:
Patient seen earlier with PA.
Control reasonable. Denies nausea. NG tube in place. NG tube output for 50 mL in 24 hours.
Vitals reasonable. White count normal. Hemoglobin reasonable at 13.5.
Abdomen moderately distended but minimally tender. Dressings dry. Stoma viable with gas and succus entericus.
NG tube clamping trial today with potential removal even potential for clears.
DC Corbett.
Okay for transfer out of ICU from surgical perspective.
Original Note:
Today's Communication / Plan
-
ngt clamping trial
d/c corbett
Assessment/Plan
-
POD #3 �diagnostic laparoscopy, exlap, right hemicolectomy, end-ileostomy creation (intra-op had hypotension requiring pressors, but resolved by the end of the case)
1.� NGT clamping trial. Will re-evaluate diet after removal.
2.� vitals and labs normal.
3.� continue antibiotics.
4.� Wound RN nurse.
5.� appreciate help of hospitalists/ICU staff.
6.� D/C corbett.
7. ok with transfer out of ICU from surgical perspective.
Subjective Data
Procedure
ex lap/R colectomy/end ileostomy 07/18/23
Subjective Data
Date of Service: July 21, 2023
Patient states his pain is better. He denies nausea or vomiting. His ileostomy is functioning.
Objective Data
-
Vital Signs
Temp Pulse Resp BP Pulse Ox
98.7 F 89 15 166/80 97
07/21/23 07:50 07/21/23 09:00 07/21/23 09:00 07/21/23 08:28 07/21/23 08:00
Intake & Output
07/20/23 07/21/23 07/22/23
06:59 06:59 06:59
Intake Total 3962.9 / 4087.9 2705 / 2805 330 / 330
Output Total 2220 / 2220 2415 / 2415
Balance 1742.9 / 1867.9 290 / 390 330 / 330
Intake:
Oral fluids 120 / 120 240 / 240
IV fluids (Total) 3392.9 / 3517.9 2275 / 2375 300 / 300
Nss 1,000 ml @ 100 mls/hr IV . 1900 / 2000 300 / 300
Q10H JOSIANE Rx#:[id number]
Nss 1,000 ml @ 125 mls/hr IV . 500 / 500
Q8H JOSIANE Rx#:[id number]
Sterile Water For Injection 2625 / 2750 375 / 375
1000 ml 1,000 ml @ 125 mls/hr
IV .Q9H12M JOSAINE with Sodium
Bicarbonate 150 Meq Rx#:
[id number]
fentanyl 13.5 / 13.5
levophed 235.0 / 235.0
precedex 19.4 / 19.4
IV piggybacks 450 / 450 100 / 100
Amount instilled into GI Tube ( 90 / 90 30 / 30
Total)
[place] Sump 90 / 90 30 / 30
Output:
Liquid stool amount 185 / 185
Colostomy 185 / 185
Gastrointestinal tube output ( 700 / 700 450 / 450
Total)
Gerlaw Sump 700 / 700 450 / 450
Urine, Corbett 1520 / 1520 1780 / 1780
Lab Results
07/21/23 04:30
07/21/23 04:30
Physical Exam
-
General: No Acute Distress and AOx3
Abdomen: Soft, Non Distended and Non Tender
Skin: Warm and Dry
Wound: Dressing Changed
--- NOTE | 2023-07-21 11:45 | PTCARENOTE ---
Otto howe. NGT flushed and clamped as per orders.
--- NOTE | 2023-07-21 12:05 | W.PN.NEPH.PH ---
Today's Communication / Plan
-
cont supportive care
Assessment/Plan
-
Assessment:
Severe sepsis 2/2 to pneumoperitoneum s/p OR rt hemicolectomy and end ileostomy on 07/18
Lactic acidosis
JD (Cr baseline 1)
HTN
GERD
LLE with stent in past
Plan:
JD likely prerenal in setting of sepsis
UA bland, cr returned to baseline with IVF
cotn NS till po intake is established
non oliguric with corbett, monitor GI out put-d/c foely today
BP stable
d/w nursing
will s/o, call with ?s
-
-
Date of Service: July 21, 2023
CC / HPI / ROS
-
Chief Complaint:
JD
History of Present Illness:
cr better at 1.1, non oliguric with corbett
GI out put 630cc
BP stbale
on 3lit O2
Review of Systems:
no cp or sob at rest
abd pain improving
Labs
-
Labs:
WBC 10.2 10^3/uL (4.8-10.8) 07/21/23 04:30
RBC 4.50 10^6/uL (4.70-6.10) L 07/21/23 04:30
Hgb 13.5 g/dL (13.0-18.0) 07/21/23 04:30
Hct 41.7 % (39.0-52.0) 07/21/23 04:30
Plt Count 202 10^3/uL (130-400) 07/21/23 04:30
Sodium 141 mmol/L (135-145) 07/21/23 04:30
Potassium 3.9 mmol/L (3.5-5.1) 07/21/23 04:30
Chloride 102 mmol/L (98-107) 07/21/23 04:30
Carbon Dioxide 36 mmol/L (22-30) H 07/21/23 04:30
BUN 35 mg/dl (9-20) H 07/21/23 04:30
Creatinine 1.1 mg/dL (0.7-1.3) 07/21/23 04:30
eGFR > 60.00 07/21/23 04:30
Glucose 86 mg/dl (70-99) 07/21/23 04:30
Calcium 8.6 mg/dl (8.4-10.2) 07/21/23 04:30
Phosphorus 2.6 mg/dl (2.5-4.5) 07/21/23 04:30
Albumin 2.8 g/dl (3.5-5.0) L 07/20/23 04:08
Physical Exam
-
Vital Signs:
Vital Signs
Temp Pulse Resp BP Pulse Ox
97.8 F 86 17 127/77 97
07/21/23 11:49 07/21/23 11:14 07/21/23 11:14 07/21/23 11:14 07/21/23 08:00
Cardiovascular:: Regular rate and rhythm
Respiratory:: Bilateral: CTA
Lung Excursion:: Normal
Abdomen:: Nontender and Soft
Extremity Edema:: None: Bilateral:
Corbett Catheter: Yes
--- NOTE | 2023-07-21 12:27 | W.PN.UPDATE ---
Update Note
Progress Note Update
Pt continues to have stable post op course. Appreciate CR surgery for care. Will follow.
[2023-07-21 15:48] VITALS: BP 138/73
--- NOTE | 2023-07-21 17:16 | W.PN.HOSP.TC ---
Today's Communication/Plan
-
NGT clamping trial
advance diet as per CRS
Assessment / Plan
Assessment / Plan
Severe sepsis with shock 2/2 pneumoperitoneum
underwent polypectomy 07/16
POD #2 diagnostic lap with rt hemicolectomy, end ileostomy creation.
has been extubated. Still with abd pain, but lessened. Passing stool into ostomy bag. Off Pressors, BP stable
WBC 16.8-->10.2-->10.2-->7.9-->10.2k
CRS would like NGT clamping trial. Potential advance diet depending on how he does
ARF
BUN/Creat 42/4.4-->56/2.5-->54/1.8-->35/1.1
input of nephrology appreciated. [place] to be prerenal from sepsis, improving
essential HTN
follow BP
GERD
PPI
VDRF
s/p extubation, doing well
P:IVF
transfer out of ICU marlon bed available
follow labs
full code
Anticipated Discharge: > 48 hours
Subjective/Interval History
-
Date of Service: July 21, 2023
Pain has lessened and is generally feeling better
Objective Data
-
Labs:
Laboratory Results
07/21/23
04:30
Sodium 141
Potassium 3.9
Chloride 102
Carbon Dioxide 36 H
BUN 35 H
Creatinine 1.1
Glucose 86
Calcium 8.6
Vital Signs:
Vital Signs
Temp Pulse Resp BP Pulse Ox
99.7 F 86 17 127/77 97
07/21/23 15:30 07/21/23 11:14 07/21/23 11:14 07/21/23 11:14 07/21/23 08:00
I&O
07/20/23 07/21/23 07/22/23
06:59 06:59 06:59
Intake Total 3962.9 / 4087.9 2705 / 2805 930 / 930
Output Total 2220 / 2220 2415 / 2415 600 / 600
Balance 1742.9 / 1867.9 290 / 390 330 / 330
Review of Systems
-
History Source: Patient and Coordinated Provider
Constitutional: Denies Fever
EENT: Reports No Symptoms Reported
Respiratory: Reports No Symptoms
Cardiac: Reports No Symptoms
Abdomen/GI: Reports Abdominal Pain (that has lessened) and Other (passing stool into ostomy bag but still not much flatus)
Physical Exam
-
General: Well Developed, Well Nourished and No Apparent Distress
HEENT: Normocephalic, Atraumatic, Moist Mucous Membranes and Other (NG tube in place)
Respiratory: Clear to Auscultation; Negative Wheezes, Rales or Rhonchi
Cardiac: Regular Rhythm and S1/S2
GI: Soft and Ostomy (stool in ostomy bag); Negative Normal Bowel Sounds (BS slightly more active today)
Genito-urinary: Menjivar
Neuro: Awake, Alert and Oriented
--- NOTE | 2023-07-21 18:26 | PTCARENOTE ---
NGT residual checked after tube being clamped for ~6hr. Residual 250mls, pt did have 2 small cups of ice chips within that time. Pt stated that the NGT wasn't bothersome. Recommended pt to keep NGT overnight and reassess in am, pt agreeable. NGT
remains clamped. PRN Dilaudid given for pain.
[2023-07-21 19:42] VITALS: BP 161/118
[2023-07-21 19:44] VITALS: BP 173/76
--- NOTE | 2023-07-21 20:33 | PTCARENOTE ---
Assumed care of pt at 1900. Pt remains OOB to chair, as he has preferred to be all weekend. NGT currently clamped. Colostomy with dark brown liquid output noted. Currently SR 80s on monitor with occasional PVCs and a BBB. SpO2 92-93% on 3LNC. See
nursing shift assessment flowsheet for further shift assessment details. Pt currently telemetry LOC. Call davila and personal items within reach.
[2023-07-22] VITALS (8 sets, daily range): BP systolic 134–167; BP diastolic 70–83; O2SAT 85–97; BMI 44.7
--- NOTE | 2023-07-22 01:33 | PTCARENOTE ---
Pt's NGT has been clamped since previous RN checked residual after clamping trial and was 250mL. At around 0130 pt rang call davila to see if he could have pain medication, informed him that it was due at 0200. In the mean time pt verbalized that it
would be nice to have his NGT out. Suction turned back on, only 50mL residual came out, attempted to aspirate with syringe and only another 10mL came out. Pt denies any nausea or increased pain (pain has been to his surgical site). NGT removed at
0130. Discussed with pt that he can't have clear liquids just yet, but most likely they will clear him for a clear liquid diet today, pt voiced understanding.
[2023-07-22] MEDS: NSS 1000 IV (02:03)
[2023-07-22] MEDS: DILAUDID 0.5 MG IV ×4 (02:04→22:24)
[2023-07-22] MEDS: ZOSYN 50 IV ×4 (04:13→22:31)
[2023-07-22 04:45] LABS: % Basophils 0.4 % (0-2); % Eosinophils 1.3 % (0-6); % Immature Granulocytes 3.4 % (0-0.5); % Lymphocytes 8.5 % (20.5-51.1); % Monocytes 12.5 % (1.7-9.3); % Neutrophils 73.9 % (42.2-75.2); Absolute Eosinophils 0.1 10^3/uL (0-0.7); Absolute Immature Granulocytes 0.4 10^3/uL (0-0.05); Absolute Lymphocytes 0.9 10^3/uL (1.2-3.4); Absolute Monocytes 1.3 10^3/uL (0.1-0.6); Absolute Neutrophils 7.6 10^3/uL (1.4-6.5); Hematocrit 40.7 % (39.0-52.0); Hemoglobin 13.1 g/dL (13.0-18.0); Mean Corp Hgb Conc. 32.2 g/dL (33.0-37.0); Mean Corpuscular Hgb 29.7 pg (27.0-31.0); Mean Corpuscular Volume 92.3 fL (80.0-94.0); Nucleated Red Blood Cells % 0 % (-); Platelet Count 240 10^3/uL (130-400); Red Blood Cell Count 4.41 10^6/uL (4.70-6.10); Red Cell Dist. Width 15.1 % (11.5-14.5); White Blood Cell Count 10.3 10^3/uL (4.8-10.8)
--- NOTE | 2023-07-22 04:50 | PTCARENOTE ---
Pt placed on telemetry pack; unhooked pt from IV briefly and took off his oxygen so he could ambulate around the room. Pt ambulated for a few minutes around the room and stretched his legs. Had been 97% on RA at rest but after ambulating was 85% on
RA; placed on 2LNC and was 93% after ~2 minutes. Sheet, pad and gown changed. Call davila and personal items within reach.
[2023-07-22 05:09] LABS: Blood Urea Nitrogen 31 mg/dl (9-20); Calcium 8.9 mg/dl (8.4-10.2); Carbon Dioxide 33 mmol/L (22-30); Chloride 102 mmol/L (98-107); Estimated Creatinine Clearance 114 ml/min; Glucose 88 mg/dl (70-99); Potassium 3.8 mmol/L (3.5-5.1); Sodium 143 mmol/L (135-145); eGFR > 60.00
[2023-07-22] MEDS: DUONEB 3 ML INH ×2 (07:27→19:31)
--- NOTE | 2023-07-22 08:00 | PTCARENOTE ---
Assumed care of patient. Pt rec'd OOB and resting in chair. Assessment documented. Reviewed plan of care w/ . Ok to start clear liquids. Call davila within reach.
[2023-07-22] MEDS: NSS (PRESERVATIVE FREE) 10 ML IV (08:06)
[2023-07-22] MEDS: HEPARIN 5000 UNITS SC ×3 (08:07→23:20)
[2023-07-22] MEDS: PROTONIX IV 40 MG IV (08:07)
--- NOTE | 2023-07-22 12:20 | W.PN.CRS1 ---
Today's Communication / Plan
-
clears
Assessment/Plan
-
POD #4 �diagnostic laparoscopy, exlap, right hemicolectomy, end-ileostomy creation (intra-op had hypotension requiring pressors, but resolved by the end of the case)
1.� Tolerated removal of NG tube. Advance diet to clears.
2.� vitals and labs normal.
3.� continue antibiotics.
4.� Wound RN nurse for stoma teaching.
5.� appreciate help of hospitalists/ICU staff.
6.� On Zosyn IV antibiotic..
7.� ok with transfer out of ICU from surgical perspective.
8. OOB as tolerated.
9. OR pathology pending.
10. Continue to hold plavix for now.
Subjective Data
Procedure
ex lap/R colectomy/end ileostomy 07/18/23
Subjective Data
Date of Service: July 22, 2023
The patient states he feels very thirsty. He has no nausea or vomiting. His pain is controlled.
Objective Data
-
Vital Signs
Temp Pulse Resp BP Pulse Ox
98 F 74 20 159/80 94
07/22/23 07:58 07/22/23 09:00 07/22/23 08:30 07/22/23 08:30 07/22/23 08:00
Intake & Output
07/21/23 07/22/23 07/23/23
06:59 06:59 06:59
Intake Total 2705 / 2805 2620 / 2620 480 / 480
Output Total 2415 / 2415 1665 / 1665 550 / 550
Balance 290 / 390 955 / 955 -70 / -70
Intake:
Oral fluids 240 / 240 360 / 360 480 / 480
IV fluids (Total) 2275 / 2375 2100 / 2100
Nss 1,000 ml @ 100 mls/hr IV . 1900 / 1999 2099 / 2099
Q10H JOSIANE Rx#:[id number]
Sterile Water For Injection 375 / 375
1000 ml 1,000 ml @ 125 mls/hr
IV .Q9H12M JOSIANE with Sodium
Bicarbonate 150 Meq Rx#:
[id number]
IV piggybacks 100 / 100 100 / 100
Amount instilled into GI Tube ( 90 / 90 60 / 60
Total)
[place] Sump 90 / 90 60 / 60
Output:
Liquid stool amount 185 / 185 230 / 230 350 / 350
Colostomy 185 / 185 230 / 230 350 / 350
Gastrointestinal tube output ( 450 / 450 310 / 310
Total)
[place] Sump 450 / 450 310 / 310
Urine, Menjivar 1780 / 1780 400 / 400
Urine, Voided 725 / 725 200 / 200
Lab Results
07/22/23 04:29
07/22/23 04:29
Physical Exam
-
General: No Acute Distress
Abdomen: Soft, Non Distended and Non Tender
Skin: Warm and Dry
Incision: Clear, Dry, Intact
--- NOTE | 2023-07-22 13:04 | W.PN.HOSP.TC ---
Today's Communication/Plan
-
Monitor vital signs see plan
Now on clears
Continue with antibiotics
Hold Plavix for now, restart when okay with colorectal
Add hydralazine as needed
Restart lisinopril
Assessment / Plan
Assessment / Plan
Severe sepsis with shock 2/2 pneumoperitoneum
underwent polypectomy 07/16
s/p diagnostic lap with rt hemicolectomy, end ileostomy creation.
has been extubated. Still with abd pain, but lessened. Passing stool into ostomy bag. Off Pressors, BP stable
now started on clears
off NGT
hold plavix for now; restart when ok with CRS
Or pathology pending
Currently on Zosyn per colorectal
ARF
improving
input of nephrology appreciated. [place] to be prerenal from sepsis, improving
hx of LLE stent
on plavix which is on hold
sees vascular outpatient
essential HTN
add hydralazine PRN
GERD
PPI
VDRF
s/p extubation, doing well
full code
General: Well Developed, Well Nourished and No Apparent Distress
HEENT: Normocephalic, Atraumatic, Moist Mucous Membranes and Other (NG tube in place)
Respiratory: Clear to Auscultation; Negative Wheezes, Rales or Rhonchi
Cardiac: Regular Rhythm and S1/S2
GI: Soft and Ostomy (stool in ostomy bag); Negative Normal Bowel Sounds (BS slightly more active today)
Genito-urinary: Menjivar
Neuro: Awake, Alert and Oriented
Anticipated Discharge: > 48 hours
Subjective/Interval History
-
Date of Service: July 22, 2023
Denies nausea
Objective Data
-
Labs:
Laboratory Results
07/22/23
04:29
WBC 10.3
Hgb 13.1
Hct 40.7
Plt Count 240
Sodium 143
Potassium 3.8
Chloride 102
Carbon Dioxide 33 H
BUN 31 H
Creatinine 0.9
Glucose 88
Calcium 8.9
Vital Signs:
Vital Signs
Temp Pulse Resp BP Pulse Ox
98.4 F 74 20 159/80 94
07/22/23 12:00 07/22/23 09:00 07/22/23 08:30 07/22/23 08:30 07/22/23 08:00
I&O
07/21/23 07/22/23 07/23/23
06:59 06:59 06:59
Intake Total 2705 / 2805 2620 / 2620 480 / 480
Output Total 2415 / 2415 1665 / 1665 550 / 550
Balance 290 / 390 955 / 955 -70 / -70
--- NOTE | 2023-07-22 13:58 | CM ---
Reviewed chart, diet advancing. Patient not yet had eval from PT/OT. Will continue to follow and make recommendations for post acute care based of off indications from medical staff.
Plan: Case management will continue to follow and assist with discharge planning. Will make recommendations for discharge based on medical staff's indications.
--- NOTE | 2023-07-22 15:30 | WOUNDNOTE ---
WO RN note: Patient and instructed ileostomy pouch emptying and changing appliance using Andrew wafer # [id number], Valerie seal and [place] pouch # [id number]. Emptied 300 ml from pouch (liquid dark brown effluent). Minor leakage noted under R side
under wafer. Instructed couple how to measure stoma. Stoma oval and almost flush with skin. No peristomal skin creases noted. signed [employer] secure ostomy starter kit authorization fax sheet. Will fax to [employer]. Mid abdominal post op
aquacell ag removed, dry gauze pads and ABD pads applied after confirming with colorectal PA Maddie Bhagat earlier today. Patient sitting in recliner chair. Next appliance change due on . VN planned when discharged.
--- NOTE | 2023-07-22 16:36 | WOUNDNOTE ---
WOC RN note: Faxed [employer] ostomy starter kit signed request for patient ( had signed fax form).
--- NOTE | 2023-07-22 21:00 | PTCARENOTE ---
Provided colostomy teaching and helped patient in participating in own colostomy care. Pt was able to verbalize and demonstrate how to properly open, empty, clean, and close colostomy. Assessment ongoing.
[2023-07-22] MEDS: ZESTRIL 20 MG PO (22:25)
[2023-07-23] VITALS (8 sets, daily range): BP systolic 143–168; BP diastolic 73–82; BMI 45.0
[2023-07-23] MEDS: ZOSYN 50 IV ×4 (03:30→21:17)
[2023-07-23] MEDS: DILAUDID 0.5 MG IV (03:30)
[2023-07-23 06:14] LABS: % Basophils 0.5 % (0-2); % Eosinophils 3.5 % (0-6); % Immature Granulocytes 6.4 % (0-0.5); % Lymphocytes 10.9 % (20.5-51.1); % Monocytes 13.1 % (1.7-9.3); % Neutrophils 65.6 % (42.2-75.2); Absolute Basophils 0.1 10^3/uL (0-0.2); Absolute Eosinophils 0.4 10^3/uL (0-0.7); Absolute Immature Granulocytes 0.6 10^3/uL (0-0.05); Absolute Lymphocytes 1.1 10^3/uL (1.2-3.4); Absolute Monocytes 1.3 10^3/uL (0.1-0.6); Absolute Neutrophils 6.6 10^3/uL (1.4-6.5); Hematocrit 38.6 % (39.0-52.0); Hemoglobin 12.6 g/dL (13.0-18.0); Mean Corp Hgb Conc. 32.6 g/dL (33.0-37.0); Mean Corpuscular Hgb 29.6 pg (27.0-31.0); Mean Corpuscular Volume 90.6 fL (80.0-94.0); Mean Platelet Volume 11.9 fL (7.4-10.4); Nucleated Red Blood Cells % 0 % (-); Platelet Count 258 10^3/uL (130-400); Red Blood Cell Count 4.26 10^6/uL (4.70-6.10); Red Cell Dist. Width 15.2 % (11.5-14.5); White Blood Cell Count 10.1 10^3/uL (4.8-10.8)
[2023-07-23 06:51] LABS: Blood Urea Nitrogen 21 mg/dl (9-20); Calcium 8.5 mg/dl (8.4-10.2); Carbon Dioxide 32 mmol/L (22-30); Chloride 100 mmol/L (98-107); Estimated Creatinine Clearance > 125 ml/min; Glucose 102 mg/dl (70-99); Potassium 3.5 mmol/L (3.5-5.1); Sodium 137 mmol/L (135-145); eGFR > 60.00
[2023-07-23] MEDS: DUONEB 3 ML INH ×2 (07:36→20:53)
[2023-07-23] MEDS: NSS (PRESERVATIVE FREE) 10 ML IV (09:16)
[2023-07-23] MEDS: HEPARIN 5000 UNITS SC ×2 (09:17→15:43)
[2023-07-23] MEDS: PROTONIX IV 40 MG IV (09:17)
--- NOTE | 2023-07-23 09:44 | W.PN.CRS1 ---
Today's Communication / Plan
-
Advance to regular diet
Antibiotics for total of 7 days
Start oxycodone as needed
Okay to start Plavix
Assessment/Plan
-
63-year-old man with a PMH of GERD, hypertension, hyperlipidemia and PVD s/p LLE stent who presents with acute abdominal pain starting yesterday morning; on 07/16/2023, he underwent an colonoscopic EMR for a large cecal polyp; the polyp was removed
with a snare, the edges were treated with APC and hemostasis achieved with hot biopsy forceps, clips were placed to reapproximate the mucosa; after the procedure he did well until the following day, he started having abdominal pain associated with
bloating; the pain did not partha so he went to the ED on 07/18, found to have a WBC of 16.8, and JD with a Cr of 4.[address] showing pneumoperitoneum
POD 4 s/p lap converted to open right hemicolectomy for cecal perforation, creation of end-ileostomy (intra-op hypotension, resolved by end of case); extubated POD1
Afebrile, vitals WNL, WBC 10.1, Hb stable
� Okay to advance to regular diet
� Pain control, switch to oxycodone with IV Dilaudid for breakthrough
�Continue IV Zosyn for total of 7 days
� JD, resolved; off IVF
-Strict I's/O's, monitor ostomy output
� Continue DVT PPx; okay to restart Plavix
� Follow-up pathology
� Appreciate hospitalist
Subjective Data
Procedure
ex lap/R colectomy/end ileostomy 07/18/23
Subjective Data
Date of Service: July 23, 2023
No overnight events.
Pain controlled.
Denies nausea/vomiting. Tolerating diet.
Having ostomy function. +voiding
Pt is OOB.
Objective Data
-
Vital Signs
Temp Pulse Resp BP Pulse Ox
97.8 F 82 14 148/76 90
07/23/23 07:23 07/23/23 07:37 07/23/23 07:37 07/23/23 07:23 07/23/23 07:23
Intake & Output
07/22/23 07/23/23 07/24/23
06:59 06:59 06:59
Intake Total 2620 / 2620 1380 / 1380
Output Total 1665 / 1665 1650 / 1650
Balance 955 / 955 -270 / -270
Intake:
Oral fluids 360 / 360 880 / 880
IV fluids (Total) 2099 500 / 500
Nss 1,000 ml @ 100 mls/hr IV . 2099 500 / 500
Q10H JOSIANE Rx#:[id number]
IV piggybacks 100 / 100
Amount instilled into GI Tube ( 60 / 60
Total)
[place] Sump 60 / 60
Output:
Liquid stool amount 230 / 230 1075 / 1075
Colostomy 230 / 230 1075 / 1075
Gastrointestinal tube output ( 310 / 310
Total)
[place] Sump 310 / 310
Urine, Menjivar 400 / 400
Urine, Voided 725 / 725 575 / 575
Lab Results
07/23/23 05:32
07/23/23 05:32
Physical Exam
-
General: No Acute Distress and AOx3
HEENT: Grossly Normal
Abdomen: Soft, Non Distended (Protuberant at baseline), Tender (Appropriately tender near incisions), No Guarding, No Rebound and Other (Ostomy pink and productive of green stool)
Skin: Warm and Dry
Wound: No Signs of Infection, Dressing in Place, No Skin Erythema and Other (Every other Telfa wick was removed; intermittent alicia in place)
--- NOTE | 2023-07-23 12:36 | W.PN.HOSP.TC ---
Today's Communication/Plan
-
Monitor vital signs and see plan
Colorectal surgery following
Restart Plavix she is okay by colorectal
Continue with lisinopril
Assessment / Plan
Assessment / Plan
Severe sepsis with shock 2/2 pneumoperitoneum
underwent polypectomy 07/16
s/p diagnostic lap with rt hemicolectomy, end ileostomy creation.
has been extubated. Still with abd pain, but lessened. Passing stool into ostomy bag. Off Pressors, BP stable
now started on clears
off NGT
Restart Plavix as okayed by colorectal
Or pathology pending
Currently on Zosyn per colorectal
ARF
improving
input of nephrology appreciated. [place] to be prerenal from sepsis, improving
hx of LLE stent
plavix restarted
sees vascular outpatient
essential HTN
add hydralazine PRN
GERD
PPI
VDRF
s/p extubation, doing well
full code
General: Well Developed, Well Nourished and No Apparent Distress
HEENT: Normocephalic, Atraumatic, Moist Mucous Membranes and Other (NG tube in place)
Respiratory: Clear to Auscultation; Negative Wheezes, Rales or Rhonchi
Cardiac: Regular Rhythm and S1/S2
GI: Soft and Ostomy (stool in ostomy bag)
Genito-urinary: Menjivar
Neuro: Awake, Alert and Oriented
Anticipated Discharge: Within 24 hours
Subjective/Interval History
-
Date of Service: July 23, 2023
denies pain
Objective Data
-
Labs:
Laboratory Results
07/23/23
05:32
WBC 10.1
Hgb 12.6 L
Hct 38.6 L
Plt Count 258
Sodium 137
Potassium 3.5
Chloride 100
Carbon Dioxide 32 H
BUN 21 H
Creatinine 0.8
Glucose 102 H
Calcium 8.5
Vital Signs:
Vital Signs
Temp Pulse Resp BP Pulse Ox
97.7 F 84 16 156/79 92
07/23/23 11:56 07/23/23 11:56 07/23/23 11:56 07/23/23 11:56 07/23/23 11:56
I&O
07/22/23 07/23/23 07/24/23
06:59 06:59 06:59
Intake Total 2620 / 2620 1380 / 1380
Output Total 1665 / 1665 1650 / 1650
Balance 955 / 955 -270 / -270
[2023-07-23] MEDS: ROXICODONE 5 MG PO ×2 (12:44→21:20)
--- NOTE | 2023-07-23 13:08 | CM ---
CM following re: discharge planning.
Reviewed pt's chart, met with pt.
Pt stated he will need VN services for Menjivar and ostomy bag care. A list of VN vendors provided. Pt preferred [facility]. A referral rick [facility] made.
D/C plan: home with [facility] and family support. Spouse to transport at discharge.
CM will follow with discharge plan updates as hospitalization progresses
--- NOTE | 2023-07-23 14:45 | PN.CDI ---
CDI
- -
CDI:
Physician Documentation Request
Admit Date: 07/18/23 12:53
Dear Doctor Mainor,
Clinical Indicators:
Patient admitted with septic shock; s/p diagnostic lap with rt hemicolectomy,abdominal washout, and end ileostomy creation 07/18.
Anesthesia Report: EBL 300 ml IVF 2700 ml
Hgb/Hct Trend:
07/18/23 07/20/23 07/23/23
09:39 04:08 05:32
Hgb 15.8 13.4 12.6 L
Hct 46.6 41.1 38.6 L
Based on the above, could you clarify in the progress notes, the appropriate diagnosis, if significant, that supports the above abnormalities and additional evaluation, monitoring and/or treatment rendered:
Anemia, due to acute blood loss and hemodilution
Anemia due to hemodilution only
Drop in hgb/hct only
Other, please specify
Use of terms such as suspected, likely, concern for, or probable (associated with a specific diagnosis that is being evaluated, monitored, or treated as if it exists) are acceptable and can be coded in the inpatient setting, when documented at the
time of discharge.
Thank you,
SKYLAR Sims RN
CDI Specialist
available via tiger text
Please use your independent medical judgment in providing your response.
[2023-07-23] MEDS: ZESTRIL 20 MG PO (21:16)
[2023-07-23] MEDS: PLAVIX 75 MG PO (21:17)
--- NOTE | 2023-07-23 22:40 | PTCARENOTE ---
Reinforced midline dressing w medipore tape at the distal end. Continued education for care of ileostomy. Pt emptied and cleaned appliance w no issues. Assessment ongoing.
[2023-07-24] MEDS: HEPARIN 5000 UNITS SC ×4 (00:44→23:30)
[2023-07-24 03:00] VITALS: BP 138/66
[2023-07-24] MEDS: ZOSYN 50 IV ×4 (03:13→21:19)
[2023-07-24] MEDS: TYLENOL 1000 MG PO ×3 (03:28→21:19)
[2023-07-24 05:25] VITALS: BMI 44.9
[2023-07-24 06:19] LABS: % Basophils 0.5 % (0-2); % Eosinophils 2.9 % (0-6); % Immature Granulocytes 6.6 % (0-0.5); % Lymphocytes 8.5 % (20.5-51.1); % Monocytes 9.1 % (1.7-9.3); % Neutrophils 72.4 % (42.2-75.2); Absolute Basophils 0.1 10^3/uL (0-0.2); Absolute Eosinophils 0.4 10^3/uL (0-0.7); Absolute Immature Granulocytes 0.9 10^3/uL (0-0.05); Absolute Lymphocytes 1.2 10^3/uL (1.2-3.4); Absolute Monocytes 1.3 10^3/uL (0.1-0.6); Absolute Neutrophils 10.1 10^3/uL (1.4-6.5); Hematocrit 35.2 % (39.0-52.0); Mean Corp Hgb Conc. 34.1 g/dL (33.0-37.0); Mean Corpuscular Hgb 29.9 pg (27.0-31.0); Mean Corpuscular Volume 87.8 fL (80.0-94.0); Mean Platelet Volume 11.3 fL (7.4-10.4); Nucleated Red Blood Cells % 0 % (-); Platelet Count 287 10^3/uL (130-400); Red Blood Cell Count 4.01 10^6/uL (4.70-6.10); Red Cell Dist. Width 15.1 % (11.5-14.5)
[2023-07-24 06:38] LABS: Blood Urea Nitrogen 20 mg/dl (9-20); Calcium 8.7 mg/dl (8.4-10.2); Carbon Dioxide 31 mmol/L (22-30); Chloride 99 mmol/L (98-107); Estimated Creatinine Clearance 102 ml/min; Glucose 111 mg/dl (70-99); Potassium 3.3 mmol/L (3.5-5.1); Sodium 137 mmol/L (135-145); eGFR > 60.00
[2023-07-24 07:04] VITALS: BP 139/76
[2023-07-24] MEDS: PROTONIX 20 MG PO (07:43)
[2023-07-24] MEDS: DUONEB 3 ML INH ×2 (08:19→20:03)
[2023-07-24] MEDS: KCL 40 MEQ PO (08:24)
--- NOTE | 2023-07-24 10:40 | W.PN.CRS1 ---
Today's Communication / Plan
-
CT abdomen and pelvis
wbc work up
continue zosyn
Assessment/Plan
-
63-year-old man with a PMH of GERD, hypertension, hyperlipidemia and PVD s/p LLE stent who presents with acute abdominal pain starting yesterday morning; on 07/16/2023, he underwent an colonoscopic EMR for a large cecal polyp; the polyp was removed
with a snare, the edges were treated with APC and hemostasis achieved with hot biopsy forceps, clips were placed to reapproximate the mucosa; after the procedure he did well until the following day, he started having abdominal pain associated with
bloating; the pain did not partha so he went to the ED on 07/18, found to have a WBC of 16.8, and JD with a Cr of 4.[address] showing pneumoperitoneum
POD 5 s/p lap converted to open right hemicolectomy for cecal perforation, creation of end-ileostomy (intra-op hypotension, resolved by end of case); extubated POD1
Afebrile, vitals WNL, WBC 14.0, Hb stable
1. Given rise of WBC, will order the following: CT abdomen pelvis, chest x-ray, urinalysis, blood cultures. Discussed with patient.
2. Continue IV antibiotics.
3. Tolerating a regular diet.
4. Wound RN for colostomy teaching.
5. Final pathology pending.
6. On heparin subcu for DVT prophylaxis. Plavix restarted.
7. Pain control: Oxycodone and Dilaudid as needed.
Subjective Data
Procedure
ex lap/R colectomy/end ileostomy 07/18/23
Subjective Data
Date of Service: July 24, 2023
Patient states he has back pain but no abdominal pain. He denies any chest pain. He denies nausea or vomiting. He denies shortness of breath or cough. He has been tolerating a regular diet and has good colostomy output.
Objective Data
-
Vital Signs
Temp Pulse Resp BP Pulse Ox
97.8 F 76 16 139/76 91
07/24/23 07:04 07/24/23 08:21 07/24/23 08:21 07/24/23 07:04 07/24/23 08:21
Intake & Output
07/23/23 07/24/23 07/25/23
06:59 06:59 06:59
Intake Total 1380 / 1380 1550 / 1550
Output Total 1650 / 1650 825 / 825
Balance -270 / -270 725 / 725
Intake:
Oral fluids 880 / 880 1400 / 1400
IV fluids (Total) 500 / 500 50 / 50
Nss 1,000 ml @ 100 mls/hr IV . 500 / 500
Q10H JOSIANE Rx#:[id number]
IV piggybacks 100 / 100
Output:
Liquid stool amount 1075 / 1075 225 / 225
Colostomy 1075 / 1075 225 / 225
Urine, Voided 575 / 575 600 / 600
Other:
Number of approximated MODERATE 2
amounts of urine
Lab Results
07/24/23 05:53
07/24/23 05:53
Physical Exam
-
General: No Acute Distress and AOx3
Abdomen: Soft, Non Distended and Non Tender
Skin: Warm and Dry
Incision: Clear, Dry, Intact
[2023-07-24] MEDS: OMNIPAQUE 50 ML PO (10:45)
--- NOTE | 2023-07-24 11:39 | W.PN.HOSP.TC ---
Today's Communication/Plan
-
Monitor vital signs and see plan
Trend leukocytosis
CT abdomen and chest x-ray ordered by colorectal, monitor
Pain control
Assessment / Plan
Assessment / Plan
Severe sepsis with shock 2/2 pneumoperitoneum
underwent polypectomy 07/16
s/p diagnostic lap with rt hemicolectomy, end ileostomy creation.
has been extubated. Still with abd pain, but lessened. Passing stool into ostomy bag. Off Pressors, BP stable
on regular diet
Leukocytosis 07/24. CT abdomen and chest x-ray ordered by colorectal. No fever
off NGT
Restarted Plavix as okayed by colorectal
Or pathology pending
Currently on Zosyn per colorectal
mild anemia could be 2/2 heme dilutional and some from acute blood loss form surgery
Monitor
ARF
improving
input of nephrology appreciated. [place] to be prerenal from sepsis, resolved
hx of LLE stent
plavix restarted
sees vascular outpatient
essential HTN
add hydralazine PRN
GERD
PPI
VDRF
s/p extubation, doing well
full code
General: Well Developed, Well Nourished and No Apparent Distress
HEENT: Normocephalic, Atraumatic, Moist Mucous Membranes and Other (NG tube in place)
Respiratory: Clear to Auscultation; Negative Wheezes, Rales or Rhonchi
Cardiac: Regular Rhythm and S1/S2
GI: Soft and Ostomy (stool in ostomy bag)
Genito-urinary: Menjivar
Neuro: Awake, Alert and Oriented
Anticipated Discharge: Within 24 hours
Subjective/Interval History
-
Date of Service: July 24, 2023
denies pain
Objective Data
-
Labs:
Laboratory Results
07/24/23
05:53
WBC 14.0 H
Hgb 12.0 L
Hct 35.2 L
Plt Count 287
Sodium 137
Potassium 3.3 L
Chloride 99
Carbon Dioxide 31 H
BUN 20
Creatinine 1.0
Glucose 111 H
Calcium 8.7
Vital Signs:
Vital Signs
Temp Pulse Resp BP Pulse Ox
97.8 F 76 16 139/76 91
07/24/23 07:04 07/24/23 08:21 07/24/23 08:21 07/24/23 07:04 07/24/23 08:21
I&O
07/23/23 07/24/23 07/25/23
06:59 06:59 06:59
Intake Total 1380 / 1380 1550 / 1550
Output Total 1650 / 1650 825 / 825
Balance -270 / -270 725 / 725
[2023-07-24 11:44] VITALS: BP 148/70
--- NOTE | 2023-07-24 12:56 | CM ---
WBC up to 14.0. Additional diagnostic testing ordered to determine cause. To date, discharge plan of care remains home with [facility] services.
--- NOTE | 2023-07-24 13:22 | VNURNOTE ---
Home Health Liaison met with patient at 1120 to discuss [facility] nurse/therapy, visits, schedule and homebound status. Patient is agreeable and understands that visits at home will be 2-3 x per week to assess and teach medical management and ostomy care.
[facility] brochure provided with contact information. Patient is aware that [facility] will contact him for start of care in 1-2 days after discharge from .
[facility] referral completed in [facility].
[2023-07-24 13:58] LABS: Urine Albumin Trace (Neg - Trace); Urine Bilirubin Negative (Negative); Urine Character Clear (Clear); Urine Color Yellow; Urine Glucose Negative (Negative); Urine Ketone Negative (Negative); Urine Leukocyte Trace (Negative); Urine Nitrite Negative (Negative); Urine Occult Blood 1+ (Negative); Urine Specific Gravity 1.015 (<1.030); Urine Urobilinogen Negative (Neg - 1+); Urine pH 6.5 (5.0-9.0)
[2023-07-24 14:06] LABS: Urine Squamous Cell 16-20 /LPF (Few); Urine Urothelial Cell 0-2 /LPF (FEW)
[2023-07-24] MEDS: DILAUDID 0.5 MG IV (14:32)
[2023-07-24] MEDS: APRESOLINE 5 MG IV (15:56)
[2023-07-24 16:31] VITALS: BP 169/74
--- NOTE | 2023-07-24 17:53 | PTCARENOTE ---
update via phone x3 during this RN's shift, called this evening with concerns regarding pt's abdominal distension and increase in white count. Emili Bhagat PA-c and Dr Hanson made aware.
[2023-07-24 19:10] VITALS: BP 153/73
[2023-07-24] MEDS: PLAVIX 75 MG PO (21:19)
[2023-07-24] MEDS: ZESTRIL 20 MG PO (21:21)
[2023-07-24 23:34] VITALS: BP 128/68
[2023-07-24] MEDS: MELATONIN 5 MG PO (23:54)
[2023-07-25] VITALS (10 sets, daily range): BP systolic 89–160; BP diastolic 60–79
[2023-07-25] MEDS: ZOSYN 50 IV ×3 (04:32→16:21)
[2023-07-25 06:40] LABS: % Basophils 0.5 % (0-2); % Immature Granulocytes 6.7 % (0-0.5); % Lymphocytes 6.4 % (20.5-51.1); % Monocytes 6.9 % (1.7-9.3); % Neutrophils 76.5 % (42.2-75.2); Absolute Basophils 0.1 10^3/uL (0-0.2); Absolute Eosinophils 0.5 10^3/uL (0-0.7); Absolute Monocytes 1.1 10^3/uL (0.1-0.6); Absolute Neutrophils 11.7 10^3/uL (1.4-6.5); Hemoglobin 12.2 g/dL (13.0-18.0); Mean Corp Hgb Conc. 33.9 g/dL (33.0-37.0); Mean Corpuscular Hgb 29.6 pg (27.0-31.0); Mean Corpuscular Volume 87.4 fL (80.0-94.0); Mean Platelet Volume 11.4 fL (7.4-10.4); Nucleated Red Blood Cells % 0 % (-); Platelet Count 327 10^3/uL (130-400); Red Blood Cell Count 4.12 10^6/uL (4.70-6.10); White Blood Cell Count 15.3 10^3/uL (4.8-10.8)
[2023-07-25 06:58] LABS: Blood Urea Nitrogen 16 mg/dl (9-20); Calcium 8.9 mg/dl (8.4-10.2); Carbon Dioxide 28 mmol/L (22-30); Chloride 103 mmol/L (98-107); Estimated Creatinine Clearance 114 ml/min; Glucose 100 mg/dl (70-99); Potassium 3.7 mmol/L (3.5-5.1); Sodium 134 mmol/L (135-145); eGFR > 60.00
[2023-07-25] MEDS: PROTONIX PO (07:21)
[2023-07-25] MEDS: DUONEB 3 ML INH (08:20)
[2023-07-25] MEDS: HEPARIN 5000 UNITS SC ×2 (08:29→16:21)
--- NOTE | 2023-07-25 11:04 | W.PN.CRS1 ---
Addendum entered and electronically signed by Apolinar Hanson MD 07/25/23 17:19:
Attempted to call and update patient, left a voicemail. Called and updated her - cultures from urine aren't back yet, IR was able to send some fluid, still no fevers, will repeat the CBC in the AM. She was appreciative.
Original Note:
Today's Communication / Plan
-
IR consult to aspirate fluid collection
ID consult
NPO until IR
continue zosyn
Assessment/Plan
-
63-year-old man with a PMH of GERD, hypertension, hyperlipidemia and PVD s/p LLE stent who presents with acute abdominal pain starting yesterday morning; on 07/16/2023, he underwent an colonoscopic EMR for a large cecal polyp; the polyp was removed
with a snare, the edges were treated with APC and hemostasis achieved with hot biopsy forceps, clips were placed to reapproximate the mucosa; after the procedure he did well until the following day, he started having abdominal pain associated with
bloating; the pain did not partha so he went to the ED on 07/18, found to have a WBC of 16.8, and JD with a Cr of 4.[address] showing pneumoperitoneum
POD 6 s/p lap converted to open right hemicolectomy for cecal perforation, creation of end-ileostomy (intra-op hypotension, resolved by end of case); extubated POD1
Afebrile, vitals WNL, WBC 15.3, Hb stable
1.� WBC 15.[address] A/P with a small fluid collection in the RUQ. I will consult IR to aspirate this today.
2.� Continue IV antibiotics.
3.� Remain NPO for now given IR consult.
4.� Wound RN for colostomy teaching.
5.� Final pathology pending.
6.� On heparin subcu for DVT prophylaxis.� Plavix restarted.
7.� Pain control: Oxycodone and Dilaudid as needed.
8. Urine and blood cultures pending.
9. ID consult given rise in WBC.
10. Dr. Hanson will update later today. Discussed plan at bedside with patient who is in agreement.
Subjective Data
Procedure
ex lap/R colectomy/end ileostomy 07/18/23
Subjective Data
Date of Service: July 25, 2023
Patient states he has decreased pain. He feels less bloated. He has no blood in his urine. He denies chest pain or shortness of breath.
Objective Data
-
Vital Signs
Temp Pulse Resp BP Pulse Ox
98.2 F 87 20 130/75 96
07/25/23 07:10 07/25/23 07:10 07/25/23 07:10 07/25/23 07:10 07/25/23 07:10
Intake & Output
07/24/23 07/25/23 07/26/23
06:59 06:59 06:59
Intake Total 1550 / 1550 1450 / 1450
Output Total 825 / 825 1550 / 1550
Balance 725 / 725 -100 / -100
Intake:
Oral fluids 1400 / 1400 1200 / 1200
IV fluids (Total) 50 / 50 50 / 50
IV piggybacks 100 / 100 200 / 200
Output:
Liquid stool amount 225 / 225 1300 / 1300
Colostomy 225 / 225 250 / 250
Ileostomy 1050 / 1050
Urine, Voided 600 / 600 250 / 250
Other:
Number of approximated MODERATE 2
amounts of urine
Number of approximated LARGE 1
amounts of urine
Lab Results
07/25/23 06:14
07/25/23 06:14
Physical Exam
-
General: No Acute Distress and AOx3
Abdomen: Soft, Distended (mild), Non Tender and Other (colostomy warm and pink with function)
Skin: Warm and Dry
Wound: Dressing in Place
Incision: Clear, Dry, Intact
--- NOTE | 2023-07-25 11:26 | W.PN.HOSP.TC ---
Today's Communication/Plan
-
Monitor vitals
See plan
ID to evaluate
IR for possible drainage if possible
Monitor leukocytosis
No fever
Continue with antibiotics for now
Assessment / Plan
Assessment / Plan
Severe sepsis with shock 2/2 pneumoperitoneum
underwent polypectomy 07/16
s/p diagnostic lap with rt hemicolectomy, end ileostomy creation.
has been extubated. Still with abd pain, but lessened. Passing stool into ostomy bag. Off Pressors, BP stable
on regular diet
Leukocytosis 07/[address] abdomen with abnormal dilation of proximal small bowel loops and ingested enteric contrast opacifies only in the proximal small bowel. Could be ileus versus evolving small bowel obstruction. Also showed small
collection of air and fluid adjacent to the proximal duodenum. IR consulted by colorectal for possible drainage if possible. No fever
Evaluation for leukocytosis
off NGT
Restarted Plavix as okayed by colorectal
Or pathology pending
Currently on Zosyn per colorectal
Ua with mild WBC in urine, will await urine cx. no dysuria. bcx NGTD
mild anemia could be 2/2 heme dilutional and some from acute blood loss form surgery
Monitor
ARF
improving
input of nephrology appreciated. [place] to be prerenal from sepsis, resolved
Hyponatremia
Monitor
hx of LLE stent
plavix restarted
sees vascular outpatient
essential HTN
add hydralazine PRN
GERD
PPI
VDRF
s/p extubation, doing well
full code
General: Well Developed, Well Nourished and No Apparent Distress
HEENT: Normocephalic, Atraumatic, Moist Mucous Membranes and Other (NG tube in place)
Respiratory: Clear to Auscultation; Negative Wheezes, Rales or Rhonchi
Cardiac: Regular Rhythm and S1/S2
GI: Soft and Ostomy (stool in ostomy bag)
Genito-urinary: Menjivar
Neuro: Awake, Alert and Oriented
Anticipated Discharge: 24 - 48 hours
Subjective/Interval History
-
Date of Service: July 25, 2023
denies pain
Objective Data
-
Labs:
Laboratory Results
07/25/23
06:14
WBC 15.3 H
Hgb 12.2 L
Hct 36.0 L
Plt Count 327
Sodium 134 L
Potassium 3.7
Chloride 103
Carbon Dioxide 28
BUN 16
Creatinine 0.9
Glucose 100 H
Calcium 8.9
Vital Signs:
Vital Signs
Temp Pulse Resp BP Pulse Ox
98.2 F 87 20 130/75 96
07/25/23 07:10 07/25/23 07:10 07/25/23 07:10 07/25/23 07:10 07/25/23 07:10
I&O
07/24/23 07/25/23 07/26/23
06:59 06:59 06:59
Intake Total 1550 / 1550 1450 / 1450
Output Total 825 / 825 1550 / 1550
Balance 725 / 725 -100 / -100
--- NOTE | 2023-07-25 12:01 | WOUNDNOTE ---
WO RN Note: Instructed patient and ileostomy appliance change using Andrew wafer # [id number], Valerie seal and [place] pouch # [id number]. Peristomal skin with minimal local erythema. No wafer leakage. Effluent liquid brown. Stoma pink, oval shaped
and budded. stated she took ileostomy teaching folder home. Ostomy supplies in room. VN planned when discharged. Next appliance change due Saturday. Instructed couple should peristomal yeast rash develop, how to treat with light dusting of
Miconazole powder followed by no sting barrier wipe with each wafer change.
--- NOTE | 2023-07-25 14:48 | CM ---
WBC increasing, Fluid collection RUQ abdomen, IR consulted for aspiration. Wound care educating on ostomy. Discharge plan of care remains home with [facility]. [facility] accepted.
--- NOTE | 2023-07-25 17:01 | CON.ID ---
Consultation
-
Date/Time Consultation Requested: 07/25/2023 1112
Date/Time Consultation Performed: 07/25/2023 1547
Requesting Provider: Maddie Bhagat
Performing Provider: Dr. Osborne
Reason for Consultation: Leukocytosis
Chief Complaint / Past History
History of Present Illness
Tristen Montenegro is a 63-year-old man being evaluated at the request of Maddie Bhagat regarding leukocytosis. History is obtained from chart review, along with patient interview. Patient reports that he recently underwent a colonoscopy, at which
time a cecal polyp was removed. He presented to the ER on 07/18 secondary to right-sided abdominal pain. He denied any nausea, but did note some decreased appetite. On workup, he was found to have a perforated viscus and he was taken to the OR
where he was found to have a cecal perforation. Hill's procedure was performed.
He has been fairly stable over the postop period, but over the past 2 days his white count has increased, with concern for possible infection. A recent CT scan suggested either an ileus versus an early SBO, and suggested the possibility of a small
collection. He is status post IR, with aspiration of only a small amount of fluid.
Currently he denies any specific complaints. He denies any fevers or chills. He notes abdominal distention, but denies any nausea or vomiting. He reports ileostomy output, and denies any rectal output at this time.
Past History
Additional Past Medical History:
GERD
HTN
Additional Past Surgical History:
Left calf stenting
Hernia repair
Allergy History:
No Known Allergies Allergy (Verified 07/16/23 09:39)
Medications Reviewed: Yes
Current Antibiotics:
Zosyn (day #8)
Social History
Tobacco: Smoker
Alcohol: None
Drug: Marijuana
Personal:
Living: With Family
Employment: Employed
Family History
Family History: Not Pertinent
Review of Systems
Vital Signs
Temp Pulse Resp BP Pulse Ox
98.3 F 84 19 160/74 96
07/25/23 16:25 07/25/23 16:25 07/25/23 16:25 07/25/23 16:25 07/25/23 16:25
Physical Exam
Physical Exam
Constitutional: No Acute Distress, Comfortable, Non-toxic and Obese
Head: Normocephalic
Eyes: Pupils Equal, Pupils Round, No Conjunctival Hemorrhage and Sclera Anicteric
Oral: No Thrush and No Ulcers
Cardiovascular: Regular Rate and S1/S2; Negative S3/S4
Pulmonary: Clear; Negative Wheezes, Rales or Rhonchi
Gastrointestinal: Soft, Non Tender, Distended, Normal Bowel Sounds, No Rebound and No Guarding
Genito-Urinary: Negative Menjivar
Extremities: Negative Edema, Cyanosis or Erythema
Skin: Warm and Dry
Wound: Other (Midline abdominal wound with alicia in place. Several areas of dehiscence, but without significant drainage.)
Neurological: Awake and Alert
Psychological: Calm
Lab / Diagnostic Study Results
07/25/23 06:14
07/25/23 06:14
Abs Immat Gran (auto) 1.0 10^3/uL (0-0.05) H 07/25/23 06:14
Absolute Neuts (auto) 11.7 10^3/uL (1.4-6.5) H 07/25/23 06:14
Absolute Lymphs (auto) 1.0 10^3/uL (1.2-3.4) L 07/25/23 06:14
Absolute Monos (auto) 1.1 10^3/uL (0.1-0.6) H 07/25/23 06:14
Absolute Basos (auto) 0.1 10^3/uL (0-0.2) 07/25/23 06:14
Total Counted 100 07/19/23 03:44
Immature Gran % 6.7 % (0-0.5) H 07/25/23 06:14
Neutrophils % 76.5 % (42.2-75.2) H 07/25/23 06:14
Lymphocytes % 6.4 % (20.5-51.1) L 07/25/23 06:14
Monocytes % 6.9 % (1.7-9.3) 07/25/23 06:14
Eosinophils % 3.0 % (0-6) 07/25/23 06:14
Basophils % 0.5 % (0-2) 07/25/23 06:14
Abs Neuts (Manual) 9.3 10^3/uL (1.4-6.5) H 07/19/23 03:44
Segmented Neutrophils 58 % (42-75) 07/19/23 03:44
Band Neutrophils 34 % (0-3) H D 07/19/23 03:44
Lymphocytes (Manual) 3 % (20-51) L 07/19/23 03:44
Eosinophils (Manual) 1 % (0-6) 07/19/23 03:44
PT 15.2 Sec (11.4-14.6) H 07/18/23 14:54
INR 1.17 07/18/23 14:54
Lactic Acid 1.1 mmol/L (0.7-2.0) 07/18/23 20:23
Urine WBC 6-10 /HPF (0-5) A 07/24/23 13:40
Ur Squamous Epith Cells 16-20 /LPF (Few) 07/24/23 13:40
Microbiology Results
Micro:
07/25/23 15:43 Body Fluid Culture - Pending
Fluid Gram Stain - Pending
07/24/23 10:44 Blood Culture - Preliminary
Blood/Venous No Growth in 24 hours- Final report to follow
07/24/23 10:30 Blood Culture - Preliminary
Blood/Venous No Growth in 24 hours- Final report to follow
07/24/23 21:06 Urine Culture - Pending
Urine
07/18/23 12:09 Blood Culture - Final
Blood/Venous No Growth - Final Report
07/18/23 09:39 Blood Culture - Final
Blood/Venous No Growth - Final Report
Assessment / Plan
Leukocytosis; rising over the past 48 hours
Abdominal fluid collection; rule out abscess
Abdominal perforation
- S/p Hill's procedure
GERD
HTN
Recommendations:
Will broaden to meropenem with close clinical monitoring.
Trend white count and temperature curve.
Await culture data from today's aspiration.
[2023-07-25] MEDS: MERREM 500 MG IV (21:58)
[2023-07-25] MEDS: PLAVIX 75 MG PO (21:58)
[2023-07-25] MEDS: ZESTRIL 20 MG PO (21:59)
[2023-07-25] MEDS: STERILE WATER FOR INJECTION 10 ML IV (21:59)
[2023-07-25] MEDS: FLUSH (NSS) 2 FLUSH IV (22:08)
[2023-07-26] MEDS: DILAUDID 0.5 MG IV ×3 (00:12→22:22)
[2023-07-26] MEDS: HEPARIN 5000 UNITS SC ×4 (00:15→23:48)
[2023-07-26] MEDS: FLUSH (NSS) 2 FLUSH IV ×3 (00:15→04:16)
[2023-07-26] MEDS: STERILE WATER FOR INJECTION 10 ML IV ×4 (03:13→22:17)
[2023-07-26] MEDS: MERREM 500 MG IV ×4 (03:13→22:18)
[2023-07-26 03:15] VITALS: BP 144/73
[2023-07-26 06:00] VITALS: BMI 43.2
[2023-07-26 06:35] LABS: % Basophils 0.4 % (0-2); % Eosinophils 2.7 % (0-6); % Immature Granulocytes 6.1 % (0-0.5); % Lymphocytes 8.6 % (20.5-51.1); % Monocytes 8.3 % (1.7-9.3); % Neutrophils 73.9 % (42.2-75.2); Absolute Basophils 0.1 10^3/uL (0-0.2); Absolute Eosinophils 0.4 10^3/uL (0-0.7); Absolute Lymphocytes 1.4 10^3/uL (1.2-3.4); Absolute Monocytes 1.3 10^3/uL (0.1-0.6); Absolute Neutrophils 11.7 10^3/uL (1.4-6.5); Hematocrit 36.7 % (39.0-52.0); Hemoglobin 12.2 g/dL (13.0-18.0); Mean Corp Hgb Conc. 33.2 g/dL (33.0-37.0); Mean Corpuscular Hgb 29.5 pg (27.0-31.0); Mean Corpuscular Volume 88.6 fL (80.0-94.0); Mean Platelet Volume 11.5 fL (7.4-10.4); Nucleated Red Blood Cells % 0 % (-); Platelet Count 342 10^3/uL (130-400); Red Blood Cell Count 4.14 10^6/uL (4.70-6.10); Red Cell Dist. Width 15.2 % (11.5-14.5); White Blood Cell Count 15.8 10^3/uL (4.8-10.8)
[2023-07-26 07:16] LABS: Blood Urea Nitrogen 20 mg/dl (9-20); Calcium 8.9 mg/dl (8.4-10.2); Carbon Dioxide 25 mmol/L (22-30); Chloride 101 mmol/L (98-107); Estimated Creatinine Clearance 112 ml/min; Glucose 107 mg/dl (70-99); Sodium 135 mmol/L (135-145); eGFR > 60.00
--- NOTE | 2023-07-26 07:25 | W.PN.CRS1 ---
Today's Communication / Plan
-
F/u cultures; appreciate ID
Obtain LE duplex
Hopefully discharge tmrw if wbc improves
Assessment/Plan
-
63-year-old man with a PMH of GERD, hypertension, hyperlipidemia and PVD s/p LLE stent who presents with acute abdominal pain starting yesterday morning; on 07/16/2023, he underwent an colonoscopic EMR for a large cecal polyp; the polyp was removed
with a snare, the edges were treated with APC and hemostasis achieved with hot biopsy forceps, clips were placed to reapproximate the mucosa; after the procedure he did well until the following day, he started having abdominal pain associated with
bloating; the pain did not partha so he went to the ED on 07/18, found to have a WBC of 16.8, and JD with a Cr of 4.[address] showing pneumoperitoneum
POD 7 s/p lap converted to open right hemicolectomy for cecal perforation, creation of end-ileostomy (intra-op hypotension, resolved by end of case); extubated POD1
Afebrile, vitals WNL,�WBC 15.8 from 15.3,�Hb stable
Ostomy output 1.3 L
-Currently asymptomatic; with bump in leukocytosis, remains elevated today
-s/p CTAP with largely post-op findings; small 3.9cm collection seen above pancreas/duodenum is actually surgicel that I placed for hemostasis- unlikely infectious source
-CXR without pneumonia; UA with mild lesk esterase and elevated WBC, f/u UCx; f/u BCx
-f/u IR aspiration culture
-will obtain LE duplex to rule out DVT
�appreciate ID - cont IV gisell
�Cont reg diet
� Pain control, oxycodone with IV Dilaudid for breakthrough
� JD, resolved; off IVF
-Strict I's/O's, monitor ostomy output
� Continue DVT PPx; okay to restart Plavix
� Follow-up pathology
� Appreciate hospitalist
Subjective Data
Procedure
ex lap/R colectomy/end ileostomy 07/18/23
Subjective Data
Date of Service: July 26, 2023
No overnight events. Patient slept much better.
Pain controlled.
Denies nausea/vomiting. Tolerating diet.
+ Ostomy function +voiding
Pt is OOB.
Objective Data
-
Vital Signs
Temp Pulse Resp BP Pulse Ox
98.5 F 80 16 144/73 93
07/26/23 03:15 07/26/23 03:15 07/26/23 03:15 07/26/23 03:15 07/26/23 03:15
Intake & Output
07/25/23 07/26/23 07/27/23
06:59 06:59 06:59
Intake Total 1450 / 1450 480 / 480
Output Total 1550 / 1550 925 / 925
Balance -100 / -100 -445 / -445
Intake:
Oral fluids 1200 / 1200 480 / 480
IV fluids (Total) 50 / 50
IV piggybacks 200 / 200
Output:
Liquid stool amount 1300 / 1300 925 / 925
Colostomy 250 / 250
Ileostomy 1050 / 1050 925 / 925
Urine, Voided 250 / 250
Other:
Number of approximated SMALL 1
amounts of urine
Number of approximated MODERATE 4
amounts of urine
Number of approximated LARGE 1
amounts of urine
Lab Results
07/26/23 05:55
07/26/23 05:55
Physical Exam
-
General: No Acute Distress and AOx3
HEENT: Grossly Normal
Abdomen: Soft, Non Distended, Non Tender, No Guarding and No Rebound
Skin: Warm and Dry
Wound: No Signs of Infection, Dressing Changed, Serous Drainage and No Skin Erythema
[2023-07-26 07:32] VITALS: BP 154/74
[2023-07-26] MEDS: PROTONIX 20 MG PO (08:51)
--- NOTE | 2023-07-26 10:59 | W.PN.UPDATE ---
Update Note
Progress Note Update
I updated his , Ivonne by phone, regarding his plan. I also told her that his LE dopplers were negative.
--- NOTE | 2023-07-26 11:14 | W.PN.HOSP.TC ---
Today's Communication/Plan
-
Monitor vitals
See plan
Monitor leukocytosis
Continue with antibiotics
No fever
follow cx
Assessment / Plan
Assessment / Plan
Severe sepsis with shock 2/2 pneumoperitoneum
underwent polypectomy 07/16
s/p diagnostic lap with rt hemicolectomy, end ileostomy creation.
has been extubated. Still with abd pain, but lessened. Passing stool into ostomy bag. Off Pressors, BP stable
on regular diet
Leukocytosis now. CT abdomen with abnormal dilation of proximal small bowel loops and ingested enteric contrast opacifies only in the proximal small bowel. Could be ileus versus evolving small bowel obstruction. Also showed small collection of
air and fluid adjacent to the proximal duodenum. IR consulted by colorectal for possible drainage if possible. No fever
Evaluation for leukocytosis; abx switched to meropenem. ID following
off NGT
Restarted Plavix as okayed by colorectal
Or pathology pending
Ua with mild WBC in urine, urine cx no growth. no dysuria. bcx NGTD
Status post IR aspiration. Follow culture. Not much fluid to put her drain
mild anemia could be 2/2 heme dilutional and some from acute blood loss form surgery
Monitor
ARF
resolved
input of nephrology appreciated. [place] to be prerenal from sepsis, resolved
Hyponatremia
Improved
hx of LLE stent
plavix restarted
sees vascular outpatient
essential HTN
add hydralazine PRN
GERD
PPI
VDRF
s/p extubation, doing well
full code
General: Well Developed, Well Nourished and No Apparent Distress
HEENT: Normocephalic, Atraumatic, Moist Mucous Membranes
Respiratory: Clear to Auscultation; Negative Wheezes, Rales or Rhonchi
Cardiac: Regular Rhythm and S1/S2
GI: Soft and Ostomy (stool in ostomy bag)
Neuro: Awake, Alert and Oriented
Anticipated Discharge: Within 24 hours
Subjective/Interval History
-
Date of Service: July 26, 2023
denies pain
Objective Data
-
Labs:
Laboratory Results
07/26/23
05:55
WBC 15.8 H
Hgb 12.2 L
Hct 36.7 L
Plt Count 342
Sodium 135
Potassium 4.0
Chloride 101
Carbon Dioxide 25
BUN 20
Creatinine 0.9
Glucose 107 H
Calcium 8.9
Vital Signs:
Vital Signs
Temp Pulse Resp BP Pulse Ox
97.8 F 77 16 154/74 92
07/26/23 07:32 07/26/23 07:32 07/26/23 07:32 07/26/23 07:32 07/26/23 07:32
I&O
07/25/23 07/26/23 07/27/23
06:59 06:59 06:59
Intake Total 1450 / 1450 480 / 480
Output Total 1550 / 1550 925 / 925
Balance -100 / -100 -445 / -445
[2023-07-26 11:47] VITALS: BP 136/74
--- NOTE | 2023-07-26 12:49 | W.PN.ID1 ---
Date of Service
Date of Service: July 26, 2023
Today's Communication
continue meropenem
Assessment / Plan
Leukocytosis; rising over the past 48 hours
Abdominal fluid collection; rule out abscess
Abdominal perforation
- S/p Hill's procedure
GERD
HTN
Recommendations:
continue meropenem with close clinical monitoring.
no yeast have been IDd
Trend white count and temperature curve.
Await culture data from today's aspiration.
Chief Complaint
-: Other (intraabdominal abscess)
Subjective / Review of Systems
afebrile
bp stable
leukocytosis stable
cr stable
wound cultures no growth
some drainage from PIV site but nontender - RN in to change it
Vital Signs / Physical Exam
Vital Signs
Vital Signs
Temp Pulse Resp BP Pulse Ox
98.0 F 85 16 136/74 94
07/26/23 11:47 07/26/23 11:47 07/26/23 11:47 07/26/23 11:47 07/26/23 11:47
Physical Exam
Constitutional: No Acute Distress
Cardiovascular: Regular Rate and S1/S2; Negative Murmur or Rub
Pulmonary: Clear and Symmetric; Negative Wheezes or Rales
Gastrointestinal: Soft, Non Tender, Non Distended, Normal Bowel Sounds and Other (ostomy with pink stoma)
Skin: Warm and Dry; Negative Rash or Jaundice
Objective Data
Lab Data
Lab Results
07/26/23 05:55
07/26/23 05:55
PT 15.2 Sec (11.4-14.6) H 07/18/23 14:54
INR 1.17 07/18/23 14:54
APTT 35.9 Sec (23.4-35.0) H 07/18/23 14:54
Estimated Creat Clear 112 ml/min 07/26/23 05:55
Lactic Acid 1.1 mmol/L (0.7-2.0) 07/18/23 20:23
Total Bilirubin 0.6 mg/dl (0.2-1.3) 07/20/23 04:08
AST 26 U/L (17-59) 07/20/23 04:08
ALT 30 U/L (0-50) 07/20/23 04:08
Alkaline Phosphatase 49 U/L (38-126) 07/20/23 04:08
Most recent labs reviewed.
Micro Results:
07/25/23 15:43 Wound Culture - Preliminary
Abdomen No growth
Gram Stain - Final
07/24/23 10:44 Blood Culture - Preliminary
Blood/Venous No Growth in 48 hours- Final report to follow
07/24/23 10:30 Blood Culture - Preliminary
Blood/Venous No Growth in 48 hours- Final report to follow
07/24/23 21:06 Urine Culture - Final
Urine NO GROWTH
07/18/23 12:09 Blood Culture - Final
Blood/Venous No Growth - Final Report
07/18/23 09:39 Blood Culture - Final
Blood/Venous No Growth - Final Report
--- NOTE | 2023-07-26 15:37 | CM ---
Reviewed the chart notes and spoke with the patient at the bedside. The plan remains home with [facility] when medically stable. CM continues to be available to patient/family and is monitoring medical plan for needs at discharge.
Plan: Discharge to home with [facility] services when medically stable.
[2023-07-26 15:51] VITALS: BP 131/63
[2023-07-26 19:45] VITALS: BP 153/79
[2023-07-26] MEDS: ZESTRIL 20 MG PO (22:17)
[2023-07-26] MEDS: PLAVIX 75 MG PO (22:17)
[2023-07-27] VITALS: BP 152/71
[2023-07-27] MEDS: FLUSH (NSS) 2 FLUSH IV (03:05)
[2023-07-27] MEDS: MERREM 500 MG IV ×2 (03:05→10:27)
[2023-07-27] MEDS: DILAUDID 0.5 MG IV (03:05)
[2023-07-27] MEDS: STERILE WATER FOR INJECTION 10 ML IV ×2 (03:05→09:34)
[2023-07-27 06:00] VITALS: BMI 43.1
[2023-07-27 06:28] LABS: % Basophils 0.5 % (0-2); % Eosinophils 2.5 % (0-6); % Immature Granulocytes 5.7 % (0-0.5); % Lymphocytes 10.5 % (20.5-51.1); % Monocytes 9.2 % (1.7-9.3); % Neutrophils 71.6 % (42.2-75.2); Absolute Basophils 0.1 10^3/uL (0-0.2); Absolute Eosinophils 0.4 10^3/uL (0-0.7); Absolute Immature Granulocytes 0.8 10^3/uL (0-0.05); Absolute Lymphocytes 1.6 10^3/uL (1.2-3.4); Absolute Monocytes 1.4 10^3/uL (0.1-0.6); Absolute Neutrophils 10.6 10^3/uL (1.4-6.5); Hemoglobin 12.8 g/dL (13.0-18.0); Mean Corp Hgb Conc. 33.7 g/dL (33.0-37.0); Mean Corpuscular Volume 89.2 fL (80.0-94.0); Mean Platelet Volume 11.3 fL (7.4-10.4); Nucleated Red Blood Cells % 0 % (-); Platelet Count 357 10^3/uL (130-400); Red Blood Cell Count 4.26 10^6/uL (4.70-6.10); Red Cell Dist. Width 15.2 % (11.5-14.5); White Blood Cell Count 14.8 10^3/uL (4.8-10.8)
[2023-07-27 06:52] LABS: Blood Urea Nitrogen 25 mg/dl (9-20); Calcium 8.9 mg/dl (8.4-10.2); Carbon Dioxide 27 mmol/L (22-30); Chloride 102 mmol/L (98-107); Estimated Creatinine Clearance 111 ml/min; Glucose 114 mg/dl (70-99); Potassium 4.2 mmol/L (3.5-5.1); Sodium 136 mmol/L (135-145); eGFR > 60.00
[2023-07-27 07:40] VITALS: BP 152/71
--- NOTE | 2023-07-27 09:16 | W.PN.ID1 ---
Date of Service
Date of Service: July 27, 2023
Today's Communication
Continue meropenem. Follow wbc.
Assessment / Plan
Leukocytosis; slightly improved today
Abdominal fluid collection; rule out abscess
Abdominal perforation
- S/p Hill's procedure
GERD
HTN
Recommendations:
continue meropenem with close clinical monitoring.
Abd fluid aspiration culture negative to date.
Trend white count
Chief Complaint
-: Other (intraabdominal abscess)
Subjective / Review of Systems
No pain.
Vital Signs / Physical Exam
Vital Signs
Vital Signs
Temp Pulse Resp BP Pulse Ox
98.6 F 71 14 152/71 95
07/27/23 07:40 07/27/23 07:40 07/27/23 07:40 07/27/23 07:40 07/27/23 07:40
Physical Exam
Constitutional: No Acute Distress, Comfortable and Obese
Pulmonary: Clear
Gastrointestinal: Soft, Non Tender, Non Distended and Other (ileostomy with brown stool)
Neurological: AO x 3
Objective Data
Lab Data
Lab Results
07/27/23 06:04
07/27/23 06:04
PT 15.2 Sec (11.4-14.6) H 07/18/23 14:54
INR 1.17 07/18/23 14:54
APTT 35.9 Sec (23.4-35.0) H 07/18/23 14:54
Estimated Creat Clear 111 ml/min 07/27/23 06:04
Lactic Acid 1.1 mmol/L (0.7-2.0) 07/18/23 20:23
Total Bilirubin 0.6 mg/dl (0.2-1.3) 07/20/23 04:08
AST 26 U/L (17-59) 07/20/23 04:08
ALT 30 U/L (0-50) 07/20/23 04:08
Alkaline Phosphatase 49 U/L (38-126) 07/20/23 04:08
Most recent labs reviewed.
Micro Results:
07/25/23 15:43 Wound Culture - Preliminary
Abdomen No growth
Gram Stain - Final
07/24/23 10:44 Blood Culture - Preliminary
Blood/Venous No Growth in 48 hours- Final report to follow
07/24/23 10:30 Blood Culture - Preliminary
Blood/Venous No Growth in 48 hours- Final report to follow
07/24/23 21:06 Urine Culture - Final
Urine NO GROWTH
07/18/23 12:09 Blood Culture - Final
Blood/Venous No Growth - Final Report
07/18/23 09:39 Blood Culture - Final
Blood/Venous No Growth - Final Report
--- NOTE | 2023-07-27 09:18 | W.PN.CRS1 ---
Today's Communication / Plan
-
Continue Merrem per ID
Assessment/Plan
-
63-year-old man with a PMH of GERD, hypertension, hyperlipidemia and PVD s/p LLE stent who presents with acute abdominal pain starting yesterday morning; on 07/16/2023, he underwent an colonoscopic EMR for a large cecal polyp; the polyp was removed
with a snare, the edges were treated with APC and hemostasis achieved with hot biopsy forceps, clips were placed to reapproximate the mucosa; after the procedure he did well until the following day, he started having abdominal pain associated with
bloating; the pain did not partha so he went to the ED on 07/18, found to have a WBC of 16.8, and JD with a Cr of 4.[address] showing pneumoperitoneum
POD 8 s/p lap converted to open right hemicolectomy for cecal perforation, creation of end-ileostomy (intra-op hypotension, resolved by end of case); extubated POD1
Afebrile, vitals WNL,�WBC 14.8 from 15.8,�Hb stable
Ostomy output 800 mL
-Currently asymptomatic; leukocytosis trending down
-s/p CTAP with largely post-op findings; small 3.9cm collection seen above pancreas/duodenum is actually surgicel that I placed for hemostasis- unlikely infectious source
-CXR without pneumonia; UA with mild lesk esterase and elevated WBC,�urine culture negative, blood culture no growth x 48 hours, wound culture negative, lower extremity Dopplers negative
�appreciate ID - cont IV meropenem
�Cont reg diet
� Pain control, oxycodone with IV Dilaudid for breakthrough
� JD, resolved; off IVF
-Strict I's/O's, monitor ostomy output
� Continue DVT PPx; okay to restart Plavix
� Follow-up pathology
� Appreciate hospitalist
-Wound nurse for ileostomy teaching
Subjective Data
Procedure
ex lap/R colectomy/end ileostomy 07/18/23
Subjective Data
Date of Service: July 27, 2023
Patient states he feels well. He denies nausea or vomiting. He virtually has no pain. His ileostomy is functioning. He does not feel distended. He has no complaints.
Objective Data
-
Vital Signs
Temp Pulse Resp BP Pulse Ox
98.6 F 71 14 152/71 95
07/27/23 07:40 07/27/23 07:40 07/27/23 07:40 07/27/23 07:40 07/27/23 07:40
Intake & Output
07/26/23 07/27/23 07/28/23
06:59 06:59 06:59
Intake Total 480 / 480 1680 / 1680
Output Total 925 / 925 800 / 800
Balance -445 / -445 880 / 880
Intake:
Oral fluids 480 / 480 1680 / 1680
Output:
Liquid stool amount 925 / 925 800 / 800
Colostomy 800 / 800
Ileostomy 925 / 925
Other:
Number of approximated SMALL 1
amounts of urine
Number of approximated MODERATE 4 3
amounts of urine
Lab Results
07/27/23 06:04
07/27/23 06:04
Physical Exam
-
General: No Acute Distress and AOx3
Abdomen: Soft, Non Distended, Non Tender and Other (Ileostomy warm and pink with function)
Wound: Dressing in Place
Incision: Clear, Dry, Intact
[2023-07-27] MEDS: HEPARIN 5000 UNITS SC (09:33)
[2023-07-27] MEDS: PROTONIX 20 MG PO (09:34)
--- NOTE | 2023-07-27 11:18 | W.PN.HOSP.TC ---
Addendum entered and electronically signed by Abrahan Hayward MD 07/27/23 12:26:
Notified by colorectal that patient can be discharged from their standpoint. Spoke with infectious disease and since patient culture has been negative so far, Dr Day does not think that patient needs any more antibiotic. Will discharge patient
home with outpatient follow-up
Time of discharge 38 minutes
Original Note:
Today's Communication/Plan
-
Monitor vital signs see plan
Continue with meropenem per infectious disease
Monitor leukocytosis
Assessment / Plan
Assessment / Plan
Severe sepsis with shock 2/2 pneumoperitoneum
underwent polypectomy 07/16
s/p diagnostic lap with rt hemicolectomy, end ileostomy creation.
has been extubated. Still with abd pain, but lessened. Passing stool into ostomy bag. Off Pressors, BP stable
on regular diet
Leukocytosis now. CT abdomen with abnormal dilation of proximal small bowel loops and ingested enteric contrast opacifies only in the proximal small bowel. Could be ileus versus evolving small bowel obstruction. Also showed small collection of
air and fluid adjacent to the proximal duodenum. IR consulted by colorectal for possible drainage if possible. No fever
Evaluation for leukocytosis; abx switched to meropenem. ID following. WBC now 14.8
off NGT
Restarted Plavix as okayed by colorectal
Or pathology pending
Ua with mild WBC in urine, urine cx no growth. no dysuria. bcx NGTD
Status post IR aspiration. Follow culture. Not much fluid to put her drain
mild anemia could be 2/2 heme dilutional and some from acute blood loss form surgery
Monitor
ARF
resolved
input of nephrology appreciated. [place] to be prerenal from sepsis, resolved
Hyponatremia
Improved
hx of LLE stent
plavix restarted
sees vascular outpatient
essential HTN
add hydralazine PRN
GERD
PPI
VDRF
s/p extubation, doing well
full code
General: Well Developed, Well Nourished and No Apparent Distress
HEENT: Normocephalic, Atraumatic, Moist Mucous Membranes
Respiratory: Clear to Auscultation; Negative Wheezes, Rales or Rhonchi
Cardiac: Regular Rhythm and S1/S2
GI: Soft and Ostomy (stool in ostomy bag)
Neuro: Awake, Alert and Oriented
Anticipated Discharge: Within 24 hours
Subjective/Interval History
-
Date of Service: July 27, 2023
Denies pain
Objective Data
-
Labs:
Laboratory Results
07/27/23
06:04
WBC 14.8 H
Hgb 12.8 L
Hct 38.0 L
Plt Count 357
Sodium 136
Potassium 4.2
Chloride 102
Carbon Dioxide 27
BUN 25 H
Creatinine 0.9
Glucose 114 H
Calcium 8.9
Vital Signs:
Vital Signs
Temp Pulse Resp BP Pulse Ox
98.6 F 71 14 152/71 95
07/27/23 07:40 07/27/23 07:40 07/27/23 07:40 07/27/23 07:40 07/27/23 07:40
I&O
07/26/23 07/27/23 07/28/23
06:59 06:59 06:59
Intake Total 480 / 480 1680 / 1680
Output Total 925 / 925 800 / 800
Balance -445 / -445 880 / 880
--- NOTE | 2023-07-27 13:32 | W.DCSUMMARY ---
Discharge Summary
Discharge Data
Date of Admission: 07/18/23
Date of Discharge: 07/27/23
-
Pending Results: No
Hospital Course
63-year-old male with past medical history of left lower extremity stent, essential hypertension, GERD, recent colonoscopy came to the hospital severe sepsis secondary to pneumoperitoneum due to cecal perforation from recent colonoscopy. Patient
underwent laparoscopy which was converted to open right hemicolectomy for cecal perforation. Patient was initially intubated and was sent to the ICU postop. Over time patient did well and was able to be extubated. Patient was able to tolerate
regular diet prior to the discharge. Patient hospital course was complicated by persistent leukocytosis for which he got a CT scan of the abdomen which showed possible small fluid collection adjacent to the proximal duodenum. Patient underwent IR
drainage however there was no significant fluid to drain. Culture was negative prior to discharge. Patient was seen by infectious disease due to persistent leukocytosis and initially was kept on antibiotics. Patient leukocytosis was slowly
improving and since culture was negative infectious disease thought that patient will not be needing any more antibiotics and should be stable to go home. Since patient symptoms improved he was then discharged home with close follow-up with all his
physicians outpatient.
Discharge Plan
-
Patient Disposition: Home with Home Care
Discharge Diagnosis/Procedures: Severe sepsis with shock 2/2 pneumoperitoneum
Mild anemia
Leukocytosis
Acute renal failure
Diet: Regular
Activity: No strenuous activity
Additional Activity: No lifting over 10 pounds.
Driving Restrictions: No driving while using narcotics.
Bathing Restrictions: OK to Shower
Blood Work: CBC next week with primary care provider
Wound Care: Cover midline wound with 4 x 4 gauze and tape. Nela will be removed at your postoperative appointment.
Activity Restrictions/Additional Instructions:
Ileostomy supplies: [place] wafer # [id number], Valerie seal and Andrew pouch # [id number] or [place] high output pouch # [id number], change 2 times a week and as needed for leakage. If leakage becomes a problem, try soft convex wafer # [id number] instead. Should
peristomal yeast rash develop, apply a light dusting of 2% Miconazole powder followed by no sting barrier wipe with each wafer change.
Call supply company (list in folder provided) for monthly Ostomy supplies after discharge (ask [facility]N to order supplies while on service).
Follow up with surgeon.
Call [facility] RN nurse for ostomy pouching concerns or leakage problems [phone] or [phone] or [phone].
Referrals:
Lissy Arriaga CRNP [Family Provider] - in less than 1 week
Apolinar Hanson MD [Active] - in two weeks
Prescriptions:
New
miconazole nitrate [Miconazorb AF] 2 % Powder
1 applic topical PRN PRN (Reason: yeasty red peristomal skin) Qty: 85 0RF
acetaminophen [Pain Relief ES (acetaminophen)] 500 mg Tablet
1,000 mg PO Q6HPRN PRN (Reason: mild pain) Qty: 0 0RF
oxycodone 5 mg Tablet
5 mg PO Q6HPRN PRN (Reason: moderate to severe pain) Qty: 15 0RF
Continued
atorvastatin 40 MG tablet
40 mg PO QPM
lisinopril 20 MG tablet
20 mg PO HS
fenofibrate nanocrystallized 145 MG tablet
145 mg PO QPM
clopidogrel 75 MG tablet
75 mg PO HS Qty: 0 0RF
Patient Comments:
07/18/2023, has not taken in roughly five days because of surgery.
pantoprazole 20 mg Tablet,Delayed Release (Dr/Ec)
20 mg PO DAILY
acetaminophen [Tylenol Extra Strength] 500 mg Tablet
1,000 mg PO ONCE PRN (Reason: mild pain)
albuterol sulfate 90 mcg/actuation Hfa Aerosol Inhaler
1 puff INHALATION R Q4HPRN PRN (Reason: dyspnea)
Centrum Silver 400-250 mcg Tablet,Chewable
2 tab PO ONCE PRN (Reason: supplement)
Discharge Orders:
Discharge Patient (As Directed); Ordered 07/27/23
Ordered By: Abrahan Hayward
Discharge Date and Time
Discharge Date/Time: 07/27/23 14:39
--- NOTE | 2023-07-27 13:57 | CM ---
Martha is for discharge to home today with [facility].
Plan; Home with [facility]
== END 2023-07-27 14:39 | disposition home health service (06) | DRG 329 ==
LOC: 2 SOUTH 12:53
PROVIDERS: Internal Medicine; Nurse Practitioner Primary Care; Physician Assistant; Radiology Vascular & Interventional Radiology; Surgery; ADMITTING PHYSICIAN Internal Medicine; CONSULT PHYSICIAN Internal Medicine Critical Care Medicine; CONSULT PHYSICIAN Internal Medicine Gastroenterology; CONSULT PHYSICIAN Internal Medicine Infectious Disease; CONSULT PHYSICIAN Student in an Organized Health Care Education/Training Program; CONSULT PHYSICIAN Surgery; EMERGENCY PHYSICIAN Emergency Medicine; FAMILY PHYSICIAN Nurse Practitioner
PROC: 0WJG4ZZ Inspection of Peritoneal Cavity, Percutaneous Endoscopic Approach (ICD-10-PCS; 2023-07-18)
PROC: 0DTF0ZZ Resection of Right Large Intestine, Open Approach (ICD-10-PCS; 2023-07-18)
PROC: 0D1B0Z4 Bypass Ileum to Cutaneous, Open Approach (ICD-10-PCS; 2023-07-18)
PROC: 5A09357 Assistance with Respiratory Ventilation, Less than 24 Consecutive Hours, Continuous Positive Airway Pressure (ICD-10-PCS; 2023-07-19)
PROC: 0W9G3ZZ Drainage of Peritoneal Cavity, Percutaneous Approach (ICD-10-PCS; 2023-07-25)
DX: K91.89 Other postprocedural complications and disorders of digestive system (principal); A41.9 Sepsis, unspecified organism; K63.1 Perforation of intestine (nontraumatic); N17.0 Acute kidney failure with tubular necrosis; R65.21 Severe sepsis with septic shock; K65.1 Peritoneal abscess; K65.9 Peritonitis, unspecified; J96.01 Acute respiratory failure with hypoxia; J96.02 Acute respiratory failure with hypercapnia; T81.43XA Infection following a procedure, organ and space surgical site, initial encounter; E87.20 Acidosis, unspecified; Z68.41 Body mass index [BMI] 40.0-44.9, adult; T81.44XA Sepsis following a procedure, initial encounter; D62 Acute posthemorrhagic anemia; E87.1 Hypo-osmolality and hyponatremia; Y83.8 Other surgical procedures as the cause of abnormal reaction of the patient, or of later complication, without mention of misadventure at the time of the procedure; K66.0 Peritoneal adhesions (postprocedural) (postinfection); Z53.31 Laparoscopic surgical procedure converted to open procedure; I95.89 Other hypotension; R73.9 Hyperglycemia, unspecified; E66.9 Obesity, unspecified; E86.0 Dehydration; I10 Essential (primary) hypertension; K66.8 Other specified disorders of peritoneum; R33.9 Retention of urine, unspecified; I73.9 Peripheral vascular disease, unspecified; E78.00 Pure hypercholesterolemia, unspecified; K21.9 Gastro-esophageal reflux disease without esophagitis; F17.200 Nicotine dependence, unspecified, uncomplicated; Z95.820 Peripheral vascular angioplasty status with implants and grafts; Z86.010 Personal history of colon polyps; Z79.02 Long term (current) use of antithrombotics/antiplatelets; Z86.718 Personal history of other venous thrombosis and embolism
CPT/HCPCS: 88307; 10160; 51798; 71045; 71046; 74176; 74177; 76942; 80048; 80053; 81003; 81015; 82330; 82570; 82805; 83605; 83690; 83735; 84100; 84132; 84156; 84302; 85025; 85610; 85730; 86850; 86900; 86901; 87040; 87070; 87086; 93005; 93970; 94002; 94003; 94640; 96361; 96365; 96375; 99285; Q9967

== ENCOUNTER 2023-08-16 13:27 | Inpatient (IN) | payer OTHER, SELFPAY ==
[2023-08-16] VITALS (48 sets, daily range): BP systolic 71–131; BP diastolic 37–96; BMI 38.5
--- NOTE | 2023-08-16 11:04 | ED.GENMED ---
History of Present Illness
<Amadou Gupta PA-C - Last Filed: 08/16/23 16:17>
General
Chief Complaint: Abdominal Symptoms
Time Seen by Provider: 08/16/23 10:45
Travel History
Have you had any contact with someone who has COVID-19?: No
Do you have any symptoms of coronavirus? Fever > 100 degrees, chills, cough, shortness of breath, sore throat, loss of taste or smell, muscle aches, or headache?: No
History of Present Illness
History of Present Illness:
63-year-old male presents the emergency department due to fatigue and poor p.o. intake for the past several days. He was admitted to this hospital due to perforated colon secondary to polyp excision during colonoscopy 2 days prior. Stated to the
operating room for laparoscopy which was converted to an open right hemicolectomy with ostomy creation. He was discharged approximately 3 weeks ago. Apparently he has had essentially no appetite and generalized weakness as well as insomnia for the
past several days. Has a visiting nurse that noted persistent hypotension for at least the past 48 hours, has not taken his home lisinopril. He denies any abdominal pain. Still having some output into the ostomy bag with no blood. Does report
nausea with no vomiting.
Past History
<Amadou Gupta PA-C - Last Filed: 08/16/23 16:17>
Past History
ED Past Medical History: GERD and HTN (not on any meds)
ED Past Surgical History: Other (Vascular surgery)
Social History
Tobacco: Smoker
Personal:
Living: with family
Employment: Employed
Family History
Family History: Other (Noncontributory)
Review of Systems
<Amadou Gupta PA-C - Last Filed: 08/16/23 16:17>
Review of Systems
Allergies reviewed?: Yes
All Other Systems: ROS reviewed and negative except as documented in HPI and ROS
Phy Exam
<Amadou Gupta PA-C - Last Filed: 08/16/23 16:17>
Physical Exam
Physical Exam:
GEN: Generally pale and ill-appearing, no immediate distress
Eyes: PERRLA, EOMs intact, no scleral icterus
HENT: NCAT, oral mucosa dry, no JVD
Lungs: CTAB, no wheezes, rales, rhonchi, normal chest wall excursion
Cardiac: Mildly tachycardic, regular
Abdomen: Midline laparotomy is well-healed with no dehiscence or signs of infection. Abdomen is generally soft and nontender. Right lower quadrant ostomy is pink and viable with scant greenish output
Neuro: AO x 3, no focal deficits to BUE/BLE, normal sensation throughout
MSK: No gross deformity or ecchymosis.
Skin: No rashes, petechiae. Generally pale, no jaundice
Psych: Calm, cooperative, proper hygiene
Course
<Amadou Gupta PA-C - Last Filed: 08/16/23 16:17>
Orders/Labs/Results
Orders:
Orders
08/16/23 Lunch
Potassium, 2 Gram
08/16/23 11:03
0.9% Sodium Chloride 1000 ml [Nss] 1,000 ml IV BOLUS
Lactated Ringers [Lr] 1,000 ml IV BOLUS
08/16/23 11:09
Complete Blood Count/With Diff Urgent
Comprehensive Metabolic Panel Urgent
Lactic Acid Q4H
Comment: CANCEL 2nd LACTIC ACID IF 1st LACTIC ACID IS LESS THAN 2
Magnesium Urgent
Comment: MAG ADDED ON BY FLOOR 3PM 08-16-23
Prothrombin Time Urgent
Blood Culture Q30M
ZAC Source: Blood/Venous
Specimen Description:
08/16/23 11:12
Ondansetron Injectable [Zofran] 4 mg .ROUTE .[facility]
08/16/23 11:14
Ondansetron Injectable [Zofran] 4 mg IV NOW STA
08/16/23 11:53
Electrocardiogram (*1) Urgent
Reason for Study: QTc Monitoring
EKG- Treatment ONCE
Albuterol Sulfate [Ventolin Nebules] 10 mg INH R NOW STA
Dextrose 50%-Water [Dextrose 50% Syringe] 25 grams IV NOW STA
Insulin Human Regular [Novolin R] 10 units IV NOW STA
Sodium Zirconium Cyclosilicate [Lokelma] 10 gram PO NOW STA
08/16/23 11:57
CT Abd/pel Without Iv Or Oral Urgent
Comment:
Reason For Exam: N/V, recent colostomy
08/16/23 12:15
Dextrose 5%/Water 1000 ml [D5w] 1,000 ml Sodium Bicarbonate 150 meq IV 150 mls/hr
08/16/23 12:17
0.9% Sodium Chloride 1000 ml [Nss] 1,000 ml IV BOLUS
08/16/23 12:18
Menjivar Placement- Treatment ONCE
Reason for insertion: I&O's Critical Care
08/16/23 12:31
Venous Blood Gas Urgent
%Oxygen/Room Air: 96
Blood Culture Q30M
ZAC Source: Blood/Venous
Specimen Description:
08/16/23 12:34
Urinalysis Reflex To Culture Urgent
08/16/23 12:50
Calcium Gluconate 1 gram/100mL [Calcium Gluconate] 1 gram in 100 ml IV ONCE
08/16/23 12:53
Sodium Bicarbonate 100 meq IV NOW STA
08/16/23 13:01
Calcium Gluconate 1 gram/100mL [Calcium Gluconate] 1 gram in 100 ml .ROUTE .[facility]
08/16/23 13:18
Admit/Transfer Patient As Directed
Co-Sign Provider:
Level of Care: Inpatient admission
Assign to:: ICU
Physician / Group: Balta Lozano
Diagnosis: Acute renal failure, shock
Reason for Hospitalization: Acute renal failure, shock
Expected length of stay greater than two midnights?: Yes
ELOS- Estimated Length of Stay in days: 5
I certify the patient meets the requirements for IP care: Yes
Code Status As Directed
Resuscitation Status: Full Code
08/16/23 13:26
Per Diem Clerk Consult Routine
Consulting Provider: Heather Saunders
Was physician already notified: Yes
Reason for consult: shock/renal failure
NEPHROLOGY CONSULT Routine
Consulting Provider: Kary Arrington
Was physician already notified: Yes
Reason for consult: renal failure/hyperkalemia
08/16/23 13:30
NORepinephrine 4 MG/250 ML [Levophed] 4 mg in 250 ml IV PER PROTOCOL
Initial dose in mcg/min, then titrate:: 3
Titrate to keep:: SBP > 90 mmHg
Titrate by mcg/min:: 1-2 mcg/min
Frequency of titrations (minutes):: 5
Maximum dose in ICU in mcg/min:: 30
Maximum dose in IMU in mcg/min:: 8
Maximum dose in IVU in mcg/min:: 4
Begin to taper infusion when:: Remained at goal for 4hrs
Taper by mcg/min:: 1-2 mcg/min
Frequency of taper (minutes) if patient maintains goal:: 30
Taper to off?: Yes
If infusion off & no longer maintaining goal:: Contact Provider
08/16/23 14:19
Lactic Acid Q4H
Comment: CANCEL 2nd LACTIC ACID IF 1st LACTIC ACID IS LESS THAN 2
08/16/23 15:04
Acetaminophen [Tylenol] 650 mg PO Q4HPRN PRN
Ondansetron Injectable [Zofran] 4 mg IV Q6HPRN PRN
08/16/23 15:04
Activity As Directed
Activity Level: Bedrest
Vital Signs As Directed
Frequency: Per unit guidelines
DX Deep Vein Thrombosis Video Routine
08/16/23 18:00
Basic Metabolic Panel Routine
08/16/23 20:00
Heparin 5,000 units SC Q12
08/17/23 06:00
Basic Metabolic Panel IN AM
Complete Blood Count/No Diff IN AM
08/18/23 06:00
Basic Metabolic Panel IN AM
Complete Blood Count/No Diff IN AM
08/19/23 06:00
Basic Metabolic Panel IN AM
Complete Blood Count/No Diff IN AM
Abnormal Lab Results
08/16/23 08/16/23
11:09 12:31
WBC 16.9 H 10^3/uL
(4.8-10.8)
MCHC 32.9 L g/dL
(33.0-37.0)
MPV 12.7 H fL
(7.4-10.4)
Abs Immat Gran (auto) 0.2 H 10^3/uL
(0-0.05)
Absolute Neuts (auto) 14.1 H 10^3/uL
(1.4-6.5)
Absolute Monos (auto) 0.8 H 10^3/uL
(0.1-0.6)
Immature Gran % 1.2 H %
(0-0.5)
Neutrophils % 83.1 H %
(42.2-75.2)
Lymphocytes % 10.8 L %
(20.5-51.1)
VBG pH 7.09 L*
(7.32-7.43)
VBG HCO3 14.0 L mmol/L
(22-27)
Potassium 7.3 H* mmol/L
(3.5-5.1)
Carbon Dioxide 8 L* mmol/L
(22-30)
BUN 108 H* mg/dl
(9-20)
Creatinine 14.0 H* mg/dL
(0.7-1.3)
Glucose 175 H mg/dl
(70-99)
Lactic Acid 3.0 H mmol/L
(0.7-2.0)
Calcium 10.6 H mg/dl
(8.4-10.2)
Magnesium 1.2 L mg/dl
(1.6-2.3)
Total Protein 8.8 H g/dl
(6.3-8.2)
08/16/23 11:09
08/16/23 11:09
Vital Signs
Initial and Last Documented VS:
Initial Vital Signs
Temp Pulse Resp Pulse Ox
97.4 F 108 18 99
08/16/23 10:27 08/16/23 10:27 08/16/23 10:27 08/16/23 10:27
Last Documented Vital Signs
Temp Pulse Resp BP Pulse Ox
98.7 F 105 22 95/58 98
08/16/23 15:14 08/16/23 15:04 08/16/23 15:04 08/16/23 15:10 08/16/23 15:04
<Mika Fernandez, DO - Last Filed: 08/16/23 12:39>
Orders/Labs/Results
Orders:
Orders
08/16/23 Lunch
Potassium, 2 Gram
08/16/23 11:03
0.9% Sodium Chloride 1000 ml [Nss] 1,000 ml IV BOLUS
Lactated Ringers [Lr] 1,000 ml IV BOLUS
08/16/23 11:09
Complete Blood Count/With Diff Urgent
Comprehensive Metabolic Panel Urgent
Lactic Acid Q4H
Comment: CANCEL 2nd LACTIC ACID IF 1st LACTIC ACID IS LESS THAN 2
Magnesium Urgent
Comment: MAG ADDED ON BY FLOOR 3PM 08-16-23
Prothrombin Time Urgent
Blood Culture Q30M
ZAC Source: Blood/Venous
Specimen Description:
08/16/23 11:12
Ondansetron Injectable [Zofran] 4 mg .ROUTE .[facility]
08/16/23 11:14
Ondansetron Injectable [Zofran] 4 mg IV NOW STA
08/16/23 11:53
Electrocardiogram (*1) Urgent
Reason for Study: QTc Monitoring
EKG- Treatment ONCE
Albuterol Sulfate [Ventolin Nebules] 10 mg INH R NOW STA
Dextrose 50%-Water [Dextrose 50% Syringe] 25 grams IV NOW STA
Insulin Human Regular [Novolin R] 10 units IV NOW STA
Sodium Zirconium Cyclosilicate [Lokelma] 10 gram PO NOW STA
08/16/23 11:57
CT Abd/pel Without Iv Or Oral Urgent
Comment:
Reason For Exam: N/V, recent colostomy
08/16/23 12:15
Dextrose 5%/Water 1000 ml [D5w] 1,000 ml Sodium Bicarbonate 150 meq IV 150 mls/hr
08/16/23 12:17
0.9% Sodium Chloride 1000 ml [Nss] 1,000 ml IV BOLUS
08/16/23 12:18
Menjivar Placement- Treatment ONCE
Reason for insertion: I&O's Critical Care
08/16/23 12:31
Venous Blood Gas Urgent
%Oxygen/Room Air: 96
Blood Culture Q30M
ZAC Source: Blood/Venous
Specimen Description:
08/16/23 12:34
Urinalysis Reflex To Culture Urgent
08/16/23 12:50
Calcium Gluconate 1 gram/100mL [Calcium Gluconate] 1 gram in 100 ml IV ONCE
08/16/23 12:53
Sodium Bicarbonate 100 meq IV NOW STA
08/16/23 13:01
Calcium Gluconate 1 gram/100mL [Calcium Gluconate] 1 gram in 100 ml .ROUTE .[facility]
08/16/23 13:18
Admit/Transfer Patient As Directed
Co-Sign Provider:
Level of Care: Inpatient admission
Assign to:: ICU
Physician / Group: Balta Lozano
Diagnosis: Acute renal failure, shock
Reason for Hospitalization: Acute renal failure, shock
Expected length of stay greater than two midnights?: Yes
ELOS- Estimated Length of Stay in days: 5
I certify the patient meets the requirements for IP care: Yes
Code Status As Directed
Resuscitation Status: Full Code
08/16/23 13:26
Per Diem Clerk Consult Routine
Consulting Provider: Heather Saunders
Was physician already notified: Yes
Reason for consult: shock/renal failure
NEPHROLOGY CONSULT Routine
Consulting Provider: Kary Arrington
Was physician already notified: Yes
Reason for consult: renal failure/hyperkalemia
08/16/23 13:30
NORepinephrine 4 MG/250 ML [Levophed] 4 mg in 250 ml IV PER PROTOCOL
Initial dose in mcg/min, then titrate:: 3
Titrate to keep:: SBP > 90 mmHg
Titrate by mcg/min:: 1-2 mcg/min
Frequency of titrations (minutes):: 5
Maximum dose in ICU in mcg/min:: 30
Maximum dose in IMU in mcg/min:: 8
Maximum dose in IVU in mcg/min:: 4
Begin to taper infusion when:: Remained at goal for 4hrs
Taper by mcg/min:: 1-2 mcg/min
Frequency of taper (minutes) if patient maintains goal:: 30
Taper to off?: Yes
If infusion off & no longer maintaining goal:: Contact Provider
08/16/23 14:19
Lactic Acid Q4H
Comment: CANCEL 2nd LACTIC ACID IF 1st LACTIC ACID IS LESS THAN 2
08/16/23 15:04
Acetaminophen [Tylenol] 650 mg PO Q4HPRN PRN
Ondansetron Injectable [Zofran] 4 mg IV Q6HPRN PRN
08/16/23 15:04
Activity As Directed
Activity Level: Bedrest
Vital Signs As Directed
Frequency: Per unit guidelines
DX Deep Vein Thrombosis Video Routine
08/16/23 18:00
Basic Metabolic Panel Routine
08/16/23 20:00
Heparin 5,000 units SC Q12
08/17/23 06:00
Basic Metabolic Panel IN AM
Complete Blood Count/No Diff IN AM
08/18/23 06:00
Basic Metabolic Panel IN AM
Complete Blood Count/No Diff IN AM
08/19/23 06:00
Basic Metabolic Panel IN AM
Complete Blood Count/No Diff IN AM
Abnormal Lab Results
08/16/23 08/16/23
11:09 12:31
WBC 16.9 H 10^3/uL
(4.8-10.8)
MCHC 32.9 L g/dL
(33.0-37.0)
MPV 12.7 H fL
(7.4-10.4)
Abs Immat Gran (auto) 0.2 H 10^3/uL
(0-0.05)
Absolute Neuts (auto) 14.1 H 10^3/uL
(1.4-6.5)
Absolute Monos (auto) 0.8 H 10^3/uL
(0.1-0.6)
Immature Gran % 1.2 H %
(0-0.5)
Neutrophils % 83.1 H %
(42.2-75.2)
Lymphocytes % 10.8 L %
(20.5-51.1)
VBG pH 7.09 L*
(7.32-7.43)
VBG HCO3 14.0 L mmol/L
(22-27)
Potassium 7.3 H* mmol/L
(3.5-5.1)
Carbon Dioxide 8 L* mmol/L
(22-30)
BUN 108 H* mg/dl
(9-20)
Creatinine 14.0 H* mg/dL
(0.7-1.3)
Glucose 175 H mg/dl
(70-99)
Lactic Acid 3.0 H mmol/L
(0.7-2.0)
Calcium 10.6 H mg/dl
(8.4-10.2)
Magnesium 1.2 L mg/dl
(1.6-2.3)
Total Protein 8.8 H g/dl
(6.3-8.2)
08/16/23 11:09
08/16/23 11:09
Vital Signs
Initial and Last Documented VS:
Initial Vital Signs
Temp Pulse Resp Pulse Ox
97.4 F 108 18 99
08/16/23 10:27 08/16/23 10:27 08/16/23 10:27 08/16/23 10:27
Last Documented Vital Signs
Temp Pulse Resp BP Pulse Ox
98.7 F 105 22 95/58 98
08/16/23 15:14 08/16/23 15:04 08/16/23 15:04 08/16/23 15:10 08/16/23 15:04
<Amadou Gupta PA-C - Last Filed: 08/16/23 16:17>
MDM/Problems Addressed
MDM/Problems Addressed:
63-year-old male presenting with poor p.o. intake, weakness and fatigue. He is found to be in severe acute renal failure with hyperkalemia and metabolic acidosis. Patient was given high-volume fluid resuscitation with crystalloid as well as
isotonic bicarb for alkalinization. CT was obtained, although limited due to lack of IV contrast in the setting of acute renal failure, no clear evidence for postsurgical complication was identified. Nephrology was consulted early in the ER
evaluation due to the concerns for renal failure with acidosis and hyperkalemia given concern for possible need of urgent dialysis. Patient will be admitted to the intensive care unit for further management
<Amadou Gupta PA-C - Last Filed: 08/16/23 16:17>
Comment
Comment:
Initial EKG independently interpreted by myself shows normal sinus rhythm at a rate of [address] changes or peaked T waves, QTc of 437
*Critical Care Note
Total Time (30-74mins, 75-104mins- exclusive of procedures): 95 min
comment:
Critical care time: 95 minutes
Critical care time was exclusive of: Separately billable procedures, treating other patients, and teaching time
Critical care was necessary to treat or prevent imminent or life-threatening deterioration of the following conditions: Metabolic acidosis, renal failure
Critical care time spent personally by me on the following activities:
[x] Review of old charts
[x] Obtaining history from patient or surrogate
[x] Ordering and review of the laboratory studies
[x] Ordering and review of radiographic studies
[x] Ordering and performing treatments and interventions
[x] Patient patient's response to treatment
[x] Development of treatment plan with patient or surrogate
ED Attending Note
<Amadou Gupta PA-C - Last Filed: 08/16/23 16:17>
-
Portions of this chart may have been created with voice recognition software.� Occasional wrong word or��sound alike� substitutions may have occurred due to the inherent limitations of voice recognition software.
<Mika Fernandez DO - Last Filed: 08/16/23 12:39>
ED Attending Note
Patient seen and examined by attending physician: Yes
I performed the substantive portion of visit, reviewed & personally made and approve the management plan that is documented in note by myself or RIKA.: Yes
Discharge Plan
Departure
Patient Disposition: Admit
Date of Disposition: 08/16/23
Time of Disposition: 12:52
Admit to: ICU
Presentation/result/management discussed w/ accepting MD/DO: Hospitalist
Discharge Problem:
Acute renal failure, Toxic metabolic encephalopathy, Metabolic acidosis
Interventions
Interventions:
*Risk Screen - Suicide Last Done: 08/16/23 14:44
*General Assessment Last Done: 08/16/23 10:27
*Neglect/Abuse Screening Last Done: 08/16/23 14:44
ED- Fall Risk Assessment Last Done: 08/16/23 15:27
*ED COVID-19 Vaccine History Last Done: 08/16/23 10:27
*Nursing Disposition Last Done: 08/16/23 15:27
ED- Neurological Assessment Last Done: 08/16/23 14:25
ED- Cardiac Assessment Last Done: 08/16/23 14:43
BP-Hzdgee-Umvqftsgve Assessment Last Done: 08/16/23 14:37
Discharge Date and Time
Discharge Date/Time: 08/16/23 15:28
[2023-08-16] MEDS: ZOFRAN 4 MG IV (11:14)
[2023-08-16] MEDS: LR 1000 IV (11:15)
[2023-08-16] MEDS: NSS 1000 IV ×2 (11:16→12:40)
[2023-08-16 11:29] LABS: % Basophils 0.2 % (0-2); % Eosinophils 0.1 % (0-6); % Immature Granulocytes 1.2 % (0-0.5); % Lymphocytes 10.8 % (20.5-51.1); % Monocytes 4.6 % (1.7-9.3); % Neutrophils 83.1 % (42.2-75.2); Absolute Immature Granulocytes 0.2 10^3/uL (0-0.05); Absolute Lymphocytes 1.8 10^3/uL (1.2-3.4); Absolute Monocytes 0.8 10^3/uL (0.1-0.6); Absolute Neutrophils 14.1 10^3/uL (1.4-6.5); Hematocrit 49.3 % (39.0-52.0); Hemoglobin 16.2 g/dL (13.0-18.0); Mean Corp Hgb Conc. 32.9 g/dL (33.0-37.0); Mean Corpuscular Hgb 28.8 pg (27.0-31.0); Mean Corpuscular Volume 87.6 fL (80.0-94.0); Mean Platelet Volume 12.7 fL (7.4-10.4); Nucleated Red Blood Cells % 0 % (-); Platelet Count 303 10^3/uL (130-400); Red Blood Cell Count 5.63 10^6/uL (4.70-6.10); Red Cell Dist. Width 14.2 % (11.5-14.5); White Blood Cell Count 16.9 10^3/uL (4.8-10.8)
[2023-08-16 11:38] LABS: INR 1.11; PT 14.1 Sec (11.4-14.6)
[2023-08-16 11:44] LABS: ALT (SGPT) 20 U/L (0-50); AST (SGOT) 17 U/L (17-59); Alkaline Phosphatase 79 U/L (38-126); Blood Urea Nitrogen 108 mg/dl (9-20); Calcium 10.6 mg/dl (8.4-10.2); Carbon Dioxide 8 mmol/L (22-30); Chloride 105 mmol/L (98-107); Glucose 175 mg/dl (70-99); Potassium 7.3 mmol/L (3.5-5.1); Sodium 136 mmol/L (135-145); Total Bilirubin 0.7 mg/dl (0.2-1.3); Total Protein 8.8 g/dl (6.3-8.2); eGFR 3.59
[2023-08-16] MEDS: DEXTROSE 50% SYRINGE 25 GRAMS IV (12:05)
[2023-08-16] MEDS: VENTOLIN NEBULES 10 MG INH (12:05)
[2023-08-16] MEDS: NOVOLIN R 10 UNITS IV (12:11)
[2023-08-16] MEDS: LOKELMA 10 GRAM PO (12:33)
[2023-08-16] MEDS: SODIUM BICARBONATE 1150 MEQ IV (12:33)
[2023-08-16 12:38] LABS: Venous Blood Gas B.E. -15.6 mmol/L (-4 to +4); Venous Blood Gas O2 Sat % 51.4 %; Venous Blood Gas pCO2 46 mmHg (35-48); Venous Blood Gas pO2 37 mmHg (30-50)
[2023-08-16 12:40] LABS: Venous Blood Gas pH 7.09 (7.32-7.43)
[2023-08-16] MEDS: SODIUM BICARBONATE 100 MEQ IV (13:03)
[2023-08-16] MEDS: CALCIUM GLUCONATE 100 IV (13:19)
--- NOTE | 2023-08-16 13:26 | HPS.HSE ---
Family Physician
-
Family Physician: Lissy Arriaga
Chief Complaint
-
Generalized weakness, lethargy
History of Present Illness
Patient is a 63-year-old male with past medical history of peripheral arterial disease status post lower extremity stenting, essential hypertension, recent cecal polypectomy complicated by perforation requiring right hemicolectomy/ileostomy
formation came to ER with ongoing generalized weakness/lethargy from Saturday. Patient slowly started feeling worse from Saturday. Patient complaining of having disturbance in sleep. Patient having poor appetite some nausea and episode of vomiting
yesterday. Patient usually empties his ileostomy bag 2- 3 times a day, has not required to change it more frequently. Denies of having any chest pain/shortness of breath/palpitation. Beside this patient was also having some chills although not
feeling febrile, no reported fever at home either.
Medical History
Past Medical History
Past Medical History: Reports Other
Additional Past Medical History:
peripheral arterial disease status post lower extremity stenting, essential hypertension, recent cecal polypectomy complicated by perforation requiring right hemicolectomy/ileostomy formation
Past Surgical History: Reports Other
Social History
Tobacco: Non-smoker
Alcohol: Occasional
Drug: None
Personal:
Living: With Family
Family History
Family History: Not pertinent
Allergies / Home Medications
Allergies reflects when Allergies were last updated in [facility].
Home Medications with original date entered in [facility]
Allergy/Medication List:
Allergies
Allergy/AdvReac Type Severity Reaction Status Date / Time
No Known Allergies Allergy Verified 08/16/23 10:31
Home Medications
atorvastatin 40 mg tablet 40 mg PO QPM High cholesterol 05/27/20
fenofibrate nanocrystallized 145 mg tablet 145 mg PO QPM High cholesterol 05/27/20
lisinopril 20 mg tablet 20 mg PO HS Blood pressure 05/27/20
clopidogrel 75 mg tablet 75 mg PO HS Blood clot prevention/tx ##0 11/26/21
Review of Systems
-
A 12 point ROS was completed and negative except as noted: Yes
Physical Exam
Vital Signs
Vital Signs
Temp Pulse Resp BP Pulse Ox
97.4 F 106 20 83/50 96
08/16/23 10:27 08/16/23 13:15 08/16/23 13:15 08/16/23 13:10 08/16/23 11:10
Physical Exam
General: Conversant, Chills, Poor Appetite and Obese; No Fever
HEENT: Atraumatic; No Oxygen
Respiratory: Clear
Cardiac: S1/S2 and Regular Rhythm; No Murmur or Rub
GI: Soft, Non Tender, Non Distended and Ostomy (RLQ ileostomy - green liquid ); No Organomegaly
Rectal: Deferred by Provider
Genito-urinary: Menjivar (No urine output)
Musculoskeletal: No Cyanosis and No Edema
Skin: No Rash
Neuro: Awake, Alert and Nonfocal/grossly intact
Psych: Calm
Laboratory Results
-
08/16/23 11:09
08/16/23 11:09
Laboratory Results
PT 14.1 Sec (11.4-14.6) 08/16/23 11:09
INR 1.11 08/16/23 11:09
Lactic Acid 3.0 mmol/L (0.7-2.0) H 08/16/23 11:09
Total Bilirubin 0.7 mg/dl (0.2-1.3) 08/16/23 11:09
AST 17 U/L (17-59) 08/16/23 11:09
ALT 20 U/L (0-50) 08/16/23 11:09
Alkaline Phosphatase 79 U/L (38-126) 08/16/23 11:09
Data Reviewed
-
CT Scan: Image Personally Visualized and interpreted, Report Reviewed by me, Discussed with Patient and Discussed with Family
Lab Data: Labs Reviewed by me, Discussed with Physician, Discussed with Patient and Discussed with Family
Old Records: Reviewed
Impression/Plan
-
CT a/p
1. � Post right hemicolectomy and diverting ileostomy. Resolution of previously seen small bowel obstruction. There are air-fluid levels throughout normal caliber small bowel loops, nonspecific but may be seen in association with ileus and enteritis.
2. � Within the right upper quadrant, minimal residual abnormal soft tissue attenuation related to the prior surgery as detailed above. There are no signs of abscess formation. There is no drainable collection. Resolution of previously seen
perihepatic free fluid. Resolution of pneumoperitoneum.
3. � Resolution of previously seen pleural effusions.

1. Shock
-suspecting hypovolemic, less likely septic
-got 3L IVF bolus, maintain on D5/bicarb @ 100mls/hr after
-start on levophed pressor to maintain SBP > 100
-Admit to ICU for overnight monitoring
2. Acute renal failure
-Suspecting volume depletion from high output ileostomy
-Patient have Menjivar catheter placed in ER, no urine output
-Creatinine of 14/BUN of 108
-Check UA if have any output
-Discussed with nephrology and suspecting component of ATN
-CTAP in ER rule out any structural problems
3. Hyperkalemia
-driven by acidosis and renal failure
-EKG reviewed VT 162ms QTc 437
-got dose of loklema/insulin-dextrose/Bicab x2 amp in ER
-got one dose of Ca gluconate
-Recheck BMP now
-Discussed with nephro and possible consideration for HD if hyperkalemia persists
4. AGAP metabolic acidosis
Mild lactic acidosis
-2/2 to renal failure
-got x2 amp Bicarb, maintain on IV bicarb/D5 @ 100mls/hr
5. r/o sepsis
-CT a/p relatively clear, except questionable RUL fluid collection, less likely abscess
-blood cs collected in ER
-not making any urine. no cxr done.
-giving unasyn x1 dose for now
6. Cecal perf post polypectomy
S/p right hemicolectomy ileostomy from on 07/18/23
-Stoma functioning appropriately
-CTAP did not show any structural problems
History of peripheral artery disease status post lower extremity stenting
Tobacco use
GERD
Obesity
Hypertriglyceridemia
DVT PPX - heparin subq
Full code
Discussed with Mechanical Spreader Operator/Nephrology/ICU pharmacy
Total time spent : 90 mins
I personally saw and examined the patient.
I have reviewed all diagnostic interpretations and treatment plans as written.
Time includes patient management by me, time spent at the patients bedside, time to review lab and imaging results, discussing patient care, documentation in the medical record, and time spent with the family or caregiver and discussing care plan
with RN/Consultants.
--- NOTE | 2023-08-16 13:50 | CON.INTV ---
Consultation
Consultation Request
Date/Time Consultation Requested: 08/16/2023
Date/Time Consultation Performed: 08/16
Reason for Consultation: Critical care
Medical History
-
History of Present Illness:
63-year-old male with history of peripheral arterial disease, left lower extremity stent, developed pneumoperitoneum/sepsis after recent colonoscopy, cecal perforation. Patient underwent open laparoscopy, right hemicolectomy, ostomy admitted
07/18/2023, discharged 07/27/2023. He was doing well, but is noted he developed renal failure during that hospital stay creatinine was 0.9. He developed poor p.o. intake, lack of appetite on 08/12, 08/13. He stopped taking his antihypertensive therapy
at that time. He noted less urination 08/15, visiting nurse noted decreased blood pressure in the last 48 hours. For this reason he brought himself into [facility] where upon arrival, afebrile, pulse 108, breathing at 18, 99%. He was given
IV fluids, pancultured. CT abdomen was obtained which ruled out any obvious worsening pocket of fluid. White count 16.9, creatinine 14 with serum bicarbonate 8. Patient was given multiple boluses of IV fluids with blood pressure response.
Admitted to ICU for further management 08/16/2023.
Presently, he is feeling much better since admission, was complaining of blurry vision, extremely ill feeling, now improved, vision improved. Denies headaches, chest pain, shortness of breath, abdominal pain. Does not note any change in
stool/ostomy output. He did have some nausea through the night prior to admission. was present to corroborate
Patient admits to 40 pound weight loss over the past 6 weeks
.
PMH: Hypertension, self discontinued meds few days prior to admission, peripheral vascular disease with left lower extremity stent, GERD, hypercholesterolemia, history of arterial embolization left lower extremity 2016. Colonoscopy complicated by
cecal perforation/pneumoperitoneum/sepsis requiring open laparotomy, right hemicolectomy, ostomy 07/18/2023. Incarcerated umbilical hernia November 2021. Left lower extremity arteriogram with angioplasty/stent 2016
Past Medical History
Past Medical History: None (See above)
Past Surgical History: None (See above)
Social History
Tobacco: Smoker (Stopped smoking 1 month ago but does smoke occasional cigarettes here and there for most of his life, likely 30+ pack year)
Alcohol: Occasional (Recently discontinued 1 month ago)
Drug: None
Personal:
Living: With Family
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
Family History
Family History: Other (Father from complications from cardiac surgery seventh decade. Mother from ovarian cancer seventh decade. Sister with ovarian cancer. No children)
Allergies / Home Medications
Allergies
Allergy/AdvReac Type Severity Reaction Status Date / Time
No Known Allergies Allergy Verified 08/16/23 10:31
Home Medications
Medication Instructions Recorded Confirmed Last Taken Type
atorvastatin 40 mg tablet 40 mg PO QPM High cholesterol 05/27/20 08/16/23 08/15/23 History
fenofibrate nanocrystallized 145 145 mg PO QPM High cholesterol 05/27/20 08/16/23 08/15/23 History
mg tablet
lisinopril 20 mg tablet 20 mg PO HS Blood pressure 05/27/20 08/16/23 08/15/23 History
clopidogrel 75 mg tablet 75 mg PO HS Blood clot 11/26/21 08/16/23 08/15/23 Rx
prevention/tx ##0
Review of Systems
-
History Source: Family
All other systems: Negative unless noted
Vitals / Labs / Diagnostic Testing
Vital Signs
Temp Pulse Resp BP Pulse Ox
97.4 F 102 22 131/50 96
08/16/23 10:27 08/16/23 13:45 08/16/23 13:45 08/16/23 13:40 08/16/23 13:30
Lab Data
08/16/23 11:09
08/16/23 11:09
Laboratory Results
08/16/23
11:09
PT 14.1
INR 1.11
Diagnostic Testing:
Physical Exam
-
HEENT: Normocephalic and Anicteric
Cardiovascular: S1/S2, Regular Rhythm (Mild tachycardia), Murmur (n), Rub (n), Peripheral Edema (n) and Calf Tenderness (n)
Respiratory: Wheeze (n), Rales (n), Rhonchi (n) and Non-Labored Respirations
GI: Soft, Non Distended (Ostomy with watery dark liquid, no blood), Non Tender and Other (Mid abdominal incision intact)
Neurology: Awake, Alert, Oriented, No Motor Deficits (Moves all extremities) and Other (Nonfocal)
Skin: Other (No clubbing, cyanosis, skin rash. Capillary refill less than 3 seconds)
General: Comfortable
Assessment
-
63-year-old male with history of peptic ulcer disease/gastritis, left lower extremity arterial disease 2016, underwent colonoscopy complicated by cecal perforation. Complicated by pneumoperitoneum with perforation, open exploration with right
hemicolectomy and ileostomy. Patient was discharged 07/27/2023, now returns with poor p.o. intake, decreased blood pressure, decreased urination, found to be septic, hypotensive and renal failure.
Sepsis, hypotension
Acute renal failure
Uremia
Hyperkalemia
Metabolic acidemia
VBG pH 7.09
Elevated lactate
Leukocytosis
Hyperglycemia
Poor p.o. intake x 4 days
Possible enteritis per imaging
Cecal polypectomy complicated by perforation
Right hemicolectomy/end ileostomy creation 07/18/2023
Conditions present prior to admission
History of hypertension
GERD/peptic ulcer disease
Bilateral popliteal aneurysm, distal embolization of the left
Intra-arterial lytic therapy/angioplasty/stent graft left popliteal artery
2017 ([facility])
[id number] history of smoking, ongoing
40 pound weight loss since June 2023, postoperatively
Snoring, suspected sleep apnea
Plan/recommendations
At this time, patient is critically ill but stable. Seems to have responded to fluid boluses, now hypertensive systolic pressure in the 170s
Patient denies headaches. Blurry vision which he presented with, now resolved, denies any vision issues
Feels '1000% better' following IV fluids
Menjivar catheter in place, still no urine output
Moving forward continue with IV fluids, bicarbonate, received 2 A
Maintain maps greater than 65
Presently without shortness of breath, follow oxygen requirement
Nephrology following
Follow-up potassium, treat hyperkalemia
EKG with low voltage QRS, prominent T waves
Abdominal imaging without obvious worsening fluid collection. Possible enteritis
Patient had emesis through the night, no hematemesis
GERD therapy with history of peptic ulcer disease/gastritis
Aspiration precautions
No indication for antibiotics at this time
Follow urine output, electrolytes, creatinine
Follow acidemia
May require dialysis
Reviewed with ED nursing, patient, at bedside
We will follow
TCCT 35 min
[2023-08-16] MEDS: UNASYN IV (14:02)
--- NOTE | 2023-08-16 14:04 | W.CON.NEPH ---
Consultation
-
Date/Time Consultation Requested: 08/16/23 1326
Date/Time Consultation Performed: 08/16/23 1345
Requesting Provider: Balta Oropeza
Performing Provider: Kary Flores
Reason for Consultation: JD, hyperkalemia and met acidosis
Medical History
-
Chief Complaint: fatigue, anuria
History of Present Illness:
63-year-old male with past medical history of peripheral arterial disease status post lower extremity stenting on plavix, essential hypertension on lisinopril,HLD on fibrate and statin, recent cecal polypectomy complicated by perforation requiring
right hemicolectomy/ileostomy formation on 07/18/23 and d/c on 07/27/23-during this admit had prerenal JD which resolved with normalization of cr from peak 4.4 . Since discharge he gradually lost appetite and became weak, symp worse since Saturday
feels lethargic, specially anuria. Only urinated once yesterday and none today hence came to ER. Reportedly his BPs were low during his home health nurse visit on Saturday. Patient complaining of having disturbance in sleep, tremors, hiccups and
vomited once yesterday.� Patient usually empties his ileostomy bag 2- 3 times a day, has not required to change it more frequently.� Denies of having any chest pain/shortness of breath/palpitation.�In ER he found cr of 14, normal baseline cr at 0.9,
k is 7.7 and bicarb 8. No UOP in corbett bag. He received 3lit of isotonic fluids in ER and started on pressors for hypotension SBP initially 50s. He had insulin, dextrose, Lokelma for high K.
Past Medical History
peripheral arterial disease status post lower extremity stenting, essential hypertension, recent cecal polypectomy complicated by perforation requiring right hemicolectomy/ileostomy formation
Social History
Tobacco: Non-Smoker
Alcohol: Occasional
Personal:
Living: With Family
Family History
no ESRD in family
Family History: Not Pertinent
Allergies / Home Medications
Allergy/AdvReac Type Severity Reaction Status Date / Time
No Known Allergies Allergy Verified 08/16/23 10:31
Medication Instructions Recorded Confirmed Type
atorvastatin 40 mg tablet 40 mg PO QPM High cholesterol 05/27/20 08/16/23 History
fenofibrate nanocrystallized 145 145 mg PO QPM High cholesterol 05/27/20 08/16/23 History
mg tablet
lisinopril 20 mg tablet 20 mg PO HS Blood pressure 05/27/20 08/16/23 History
clopidogrel 75 mg tablet 75 mg PO HS Blood clot 11/26/21 08/16/23 Rx
prevention/tx ##0
Review of Systems
-
All complete 12 point ROS have been inquired and found negative other than stated in HPI
Physical Exam
Vital Signs
Vital Signs
Temp Pulse Resp BP Pulse Ox
97.4 F 102 22 131/50 96
08/16/23 10:27 08/16/23 13:45 08/16/23 13:45 08/16/23 13:40 08/16/23 13:30
Lab Results
WBC 16.9 10^3/uL (4.8-10.8) H 08/16/23 11:09
RBC 5.63 10^6/uL (4.70-6.10) 08/16/23 11:09
Hgb 16.2 g/dL (13.0-18.0) 08/16/23 11:09
Hct 49.3 % (39.0-52.0) 08/16/23 11:09
Plt Count 303 10^3/uL (130-400) 08/16/23 11:09
eGFR 3.59 08/16/23 11:09
Albumin 5.0 g/dl (3.5-5.0) 08/16/23 11:09
Sodium 136, potassium 7.3, bicarbonate 8, chloride 105, BUN 108, creatinine 14, glucose 175, lactic acid 3, calcium 10.6, LFTs are normal, total protein 8.8, albumin 5
Exams:� CT Abd/pel Without Iv Or Oral
EXAMINATION: CT of the abdomen and pelvis without contrast.
INDICATION: Nausea and vomiting. Recent colostomy.
TECHNIQUE: Contiguous helical acquisition from the bases of the lungs through the pubic symphysis without contrast. Axial reconstructions and sagittal and coronal reformats provided. Automated dose reduction technique was utilized.
COMPARISON: 07/24/2023.
FINDINGS:
Lung Bases: Previously seen effusions have resolved. Residual minimal subsegmental atelectatic changes at the bilateral lung bases.
Abdomen and pelvis: Within the limits of noncontrast exam, there is no suspicious focal hepatic lesion. There is no intrahepatic biliary dilation. Gallbladder is unremarkable. Spleen shows a small low-attenuation focus as seen prior, too small to
characterize but possibly a small cyst. Pancreas is unremarkable. Adrenal glands are unremarkable. Kidneys are unremarkable.
As seen prior, patient is post right hemicolectomy with diverting ileostomy. Previously seen small bowel obstruction has resolved. There are no abnormally dilated loops of bowel. There are some air-fluid levels throughout normal caliber small bowel
loops. There is colonic diverticulosis. Previously seen intra-abdominal fluid has nearly completely resolved. There is very small residual probable fluid in the right upper abdomen (image #32 series 201) the level of the previously seen air and
fluid collection. This shows increased attenuation on the current exam and may represent very small hematoma. Residual postoperative inflammatory change/scarring is also possible The previously seen perihepatic free fluid has resolved.
Pneumoperitoneum has resolved. There are postoperative changes of the anterior abdominal wall as seen prior.
There is no retroperitoneal adenopathy. There is no aneurysmal dilation of the aorta. There are advanced calcific atherosclerotic changes as seen prior. Urinary bladder is nearly completely decompressed, otherwise unremarkable. Prostate gland is
unremarkable. Rectum is unremarkable.
Bone: Degenerative changes. No abnormal focal osseous lesion.
IMPRESSION:
1. � Post right hemicolectomy and diverting ileostomy. Resolution of previously seen small bowel obstruction. There are air-fluid levels throughout normal caliber small bowel loops, nonspecific but may be seen in association with ileus and enteritis.
2. � Within the right upper quadrant, minimal residual abnormal soft tissue attenuation related to the prior surgery as detailed above. There are no signs of abscess formation. There is no drainable collection. Resolution of previously seen
perihepatic free fluid. Resolution of pneumoperitoneum.
3. � Resolution of previously seen pleural effusions.
Electronically signed by William Reeder DO 08/16/2023 12:54 PM
[employer] Dose Report: Up-to-date CT equipment and radiation dose reduction techniques were employed. CTDIvol: 22.3 mGy. DLP: 1192 mGy-cm.
Dictated By: Wliliam Reeder DO.
Dictated Date & Time: 08/16/23 1244
Signed/Co-Signer By: William Reeder DO. /
Signed/Co-Signer Date & Time: 08/16/23 1254 /
Physical Exam
General: Awake, Alert and Oriented
HEENT: EOMI and Anicteric
Respiratory: Clear
Cardiac: S1/S2 and Regular Rate/Rhythm
Abdomen: Soft, Nontender, Nondistended and Other (ileostomy bag with liquid stool)
Musculoskeletal: No Clubbing, No Cyanosis and No Edema
Skin: No Rash
Psych: Mood/afflect pleasant, Insight/judgement good and Appropriate
Assessment/Plan
-
IMP:
JD (Cr baseline 0.9)
Severe hyperkalemia
HYpotension-shock on pressors
Leucocytosis
Severe A gap met acidosis
Ileus vs enteritis noted on CT
Recent admit for colon perf s/p s/p diagnostic lap with rt hemicolectomy, end ileostomy creation 07/18/23
HTN
GERD
h/o LLE with stent
Plan:
Pt recent d/c for colon perf and s/p right hemicolectomy and ileostomy creation late Jun now returns with decreased po intake and anuria
severe JD-cr up at 14, pt reports hypotension noted on Saturday itself
suspect he is in ATN phase from prolonged prerenal stimuli, anuric s/p corbett, CT abd no hydro
s/p temporization ok k and IVF -repeat labs if no sig improvement likely HD today -pt agrees
will need urine studies when can
cont bicarb IVF for met acidosis s/p 2amp of bicarb
pressors to maintain MAP >65
avoid aggressive IVF since he is anuric
d/w pt and in detail
d/w primary
CC time spent >40min
Data Reviewed
-
Radiology: Report Reviewed by me
Labs: Labs Reviewed by me, Discussed with Physician and Discussed with Family
Critical Care Time (in minutes): >40min
[2023-08-16 14:49] LABS: Lactic Acid 2.2 mmol/L (0.7-2.0)
[2023-08-16 14:54] LABS: Blood Urea Nitrogen 107 mg/dl (9-20); Calcium 9.2 mg/dl (8.4-10.2); Carbon Dioxide 14 mmol/L (22-30); Chloride 107 mmol/L (98-107); Glucose 150 mg/dl (70-99); Potassium 6.9 mmol/L (3.5-5.1); Sodium 136 mmol/L (135-145); eGFR 4.31
--- NOTE | 2023-08-16 15:06 | W.PN.UPDATE ---
Update Note
Progress Note Update
noted repeat labs
k still high at 6.9, anuric
will plan HD today
IR notified
[2023-08-16 15:42] LABS: Magnesium 1.2 mg/dl (1.6-2.3)
[2023-08-16 15:45] LABS: Hepatitis B Surface Antigen Negative (Negative)
[2023-08-16 16:03] LABS: Hepatitis B Core Ab, Total Negative (Negative); Hepatitis B Surface Antibody Negative
[2023-08-16] MEDS: HEPARIN 500 UNITS IV ×2 (16:55→17:55)
[2023-08-16 17:02] LABS: Hepatitis C Antibody Negative (Negative)
[2023-08-16] MEDS: MANNITOL 12.5 GRAMS IV ×2 (17:05→18:15)
--- NOTE | 2023-08-16 17:06 | PTCARENOTE ---
Pt admitted to ICU bed 3366 from ED at 1500. Pt assessed and CHG'ed. Levophed started for BP 80s/50s, now 105/60 on 2 mcg/min. Pt transferred to IR for HD cath placement. Now back in room receiving HD at bedside.
Pt AAOx3.
Lungs CTA. SpO2 97% on RA.
Sinus Rhythm with PACs and frequent PVCs.
Less than 10ml rossi urine output via corbett.
400ml liquid brown stool via ileostomy.
Bicarb gtt infusing.
[2023-08-16] MEDS: FLEXBUMIN 25% FOR HEMODIALYSIS 12.5 GRAMS IV ×2 (17:32→18:05)
--- NOTE | 2023-08-16 17:36 | W.PN.NEPH.HD ---
Assessment
-
pt seen during HD
SBP 102 during visit on 2mcg of levo
will change bicarb IVF to 1/2 ns with bicarb at lower rate
no UF in HD , corbett with no UOP still
temp HD catheter functions fine
Progress Note - Hemodialysis
-
Date of Service: August 16, 2023
Duration: 2 hours
Potassium Bath: 2
Calcium Bath: 2.5
Opti-Dialyzer: 160
Ultrafiltration: Other (0)
Blood Flow: 250
Dialysate Flow: Other (400)
Heparin: yesx2
EPO: no
[2023-08-16 17:58] LABS: Urine Albumin 3+ (Neg - Trace); Urine Bilirubin 1+ (Negative); Urine Character Very Cloudy (Clear); Urine Color Yellow; Urine Glucose Trace (Negative); Urine Ketone Trace (Negative); Urine Leukocyte 2+ (Negative); Urine Nitrite Positive (Negative); Urine Occult Blood 2+ (Negative); Urine Specific Gravity 1.025 (<1.030); Urine Urobilinogen 1+ (Neg - 1+)
[2023-08-16 18:04] LABS: Urine Bacteria Many (Negative)
[2023-08-16] MEDS: SODIUM BICARBONATE 1075 MEQ IV (18:07)
--- NOTE | 2023-08-16 18:52 | CON.CRS ---
Consultation
-
Performing Provider: Apolinar Hanson MD
Medical History
-
History of Present Illness:
63-year-old man with a PMH of GERD, hypertension, hyperlipidemia and PVD s/p LLE stent and recent admission 07/18/2023 to 07/27/2023 for cecal perforation and JD requiring urgent ex lap, right hemicolectomy with end ileostomy who presents with
anorexia for 4 days associated with dry heaving, more liquid ostomy output (but states it did not increase in output), and vomiting since last night as well as blurred vision this morning. Over the last 1 to 2 days, he noticed a decrease in his
urination as well. His BP was 80/60 and HR 108. These improved after fluid, he received 3L in the ED. WBC was 16.9, Cr 14, BUN 108, K 7.3, UA concerning for UTI (+nitrate, 2+ LE, wbc 11-15), CT showing post-operative changes. He was admitted to the
ICU and started on hemodialysis.
Currently, he states he feels much better. The blurry vision has improved. Denies any abdominal pain throughout this. His nausea has improved. Still having ostomy function.
Past Medical History
Past Medical History: Other (As above)
Past Surgical History: Other (As above)
Social History
Tobacco: Non-Smoker
Alcohol: Occasional
Drug: None
Personal:
Living: With Family
Family History
Family History: Reviewed & Not Pertinent
Allergies / Home Medications
Allergy/AdvReac Type Severity Reaction Status Date / Time
No Known Allergies Allergy Verified 08/16/23 10:31
Medication Instructions Recorded Confirmed Type
atorvastatin 40 mg tablet 40 mg PO QPM High cholesterol 05/27/20 08/16/23 History
fenofibrate nanocrystallized 145 145 mg PO QPM High cholesterol 05/27/20 08/16/23 History
mg tablet
lisinopril 20 mg tablet 20 mg PO HS Blood pressure 05/27/20 08/16/23 History
clopidogrel 75 mg tablet 75 mg PO HS Blood clot 11/26/21 08/16/23 Rx
prevention/tx ##0
Review of Systems
-
All other systems: Negative unless noted
A 10 point review of systems was completed, and was negative except as per HPI.
Physical Exam
Vital Signs
Temp 98.7 F 08/16/23 15:14
Pulse 97 08/16/23 17:00
Resp Rate 19 08/16/23 17:00
Blood pressure 105/62 08/16/23 16:45
SaO2 98 08/16/23 15:04
08/15/23 08/16/23 08/17/23
06:59 06:59 06:59
Actual Weight 114.8 kg
Body Mass Index (BMI) 38.5
Lab Results / Allergies
08/16/23 11:09
WBC 16.9 10^3/uL (4.8-10.8) H 08/16/23 11:09
Hgb 16.2 g/dL (13.0-18.0) 08/16/23 11:09
Hct 49.3 % (39.0-52.0) 08/16/23 11:09
Plt Count 303 10^3/uL (130-400) 08/16/23 11:09
Abs Immat Gran (auto) 0.2 10^3/uL (0-0.05) H 08/16/23 11:09
Neutrophils % 83.1 % (42.2-75.2) H 08/16/23 11:09
Allergy/AdvReac Type Severity Reaction Status Date / Time
No Known Allergies Allergy Verified 08/16/23 10:31
Physical Exam
General: Well Developed and No Apparent Distress
HEENT: Normocephalic, Atraumatic and Other (Right IJ central access)
Respiratory: Non Labored Respirations
GI: Soft, Non Tender, Non Distended and Other (No rebound or guarding; midline wound healing with intermittent scabbing, port incisions healing well; ostomy pink and productive of liquid dark green effluent)
Skin: Warm and Dry
Neuro: AO x 3
Assessment / Plan
-
63-year-old man with a PMH of GERD, hypertension, hyperlipidemia and PVD s/p LLE stent and recent admission 07/18/2023 to 07/27/2023 for cecal perforation and JD requiring urgent ex lap, right hemicolectomy with end ileostomy who presents with
anorexia for 4 days associated with dry heaving, more liquid ostomy output (but states it did not increase in output), and vomiting since last night as well as blurred vision this morning. Over the last 1 to 2 days, he noticed a decrease in his
urination as well. His BP was 80/60 and HR 108. These improved after fluid, he received 3L in the ED. WBC was 16.9, Cr 14, BUN 108, K 7.3, UA concerning for UTI (+nitrate, 2+ LE, wbc 11-15), CT showing post-operative changes. He was admitted to the
ICU and started on hemodialysis.
-Appreciate hospitalist and vp care management for severe JD likely related to dehydration
-Uncertain so far the etiology for the anorexia/poor intake leading to severe dehydration and JD
�Follow-up blood culture and urine culture to rule out concomitant infection
-Strict I's and O's, including urine output and ostomy output
-depending on ostomy output, he may need antimotility agents
�Okay for diet and DVT PPx from CRS standpoint
�No surgical intervention indicated at this point
� Will follow peripherally, please call for any questions or concerns
[2023-08-16] MEDS: HEPARIN 2200 UNITS INTRACATH (19:12)
--- NOTE | 2023-08-16 19:45 | PTCARENOTE ---
Received pt. at 1900. Pt. currently in bed. Awake, alert, and oriented. Dialysis treatment finished. Pt. denies any pain or discomfort. Heart rhythm sinus tachycardic. BP currently normotensive, Levophed infusion is off. Pt. is on room air. Low
sodium diet ordered, but pt. does not have much of an appetite at this time. Ileostomy bag intact. Menjivar catheter in place per order. Skin as documented. Discussed plan of care with patient. Vital signs stable at this time.
[2023-08-16] MEDS: HEPARIN 5000 UNITS SC (20:36)
[2023-08-16] MEDS: MAGNESIUM SULFATE 50 IV (20:37)
[2023-08-16 20:40] LABS: Magnesium 1.1 mg/dl (1.6-2.3)
[2023-08-16 20:49] LABS: Estimated Creatinine Clearance 10 ml/min; eGFR 6.01
[2023-08-16 20:50] LABS: Blood Urea Nitrogen 84 mg/dl (9-20); Calcium 8.9 mg/dl (8.4-10.2); Carbon Dioxide 19 mmol/L (22-30); Chloride 101 mmol/L (98-107); Glucose 141 mg/dl (70-99); Potassium 4.5 mmol/L (3.5-5.1); Sodium 136 mmol/L (135-145)
[2023-08-16 21:00] LABS: APTT 20.3 Sec (23.4-35.0)
[2023-08-16 21:04] LABS: Magnesium 1.2 mg/dl (1.6-2.3)
[2023-08-16] MEDS: TYLENOL 650 MG PO (21:27)
[2023-08-17] VITALS (47 sets, daily range): BP systolic 84–130; BP diastolic 51–113; BMI 38.8
--- NOTE | 2023-08-17 00:05 | PTCARENOTE ---
Pt. experiencing hypotension. Levophed gtt restarted. Goal of SBP >90. SBP currently at goal on 8mcg/min of Levophed. Pt. c/o mild lower back pain. PRN Tylenol given. Vital signs stable at this time.
--- NOTE | 2023-08-17 05:00 | PTCARENOTE ---
Pt. assessment remains unchanged. AM labs drawn. Vital signs stable at this time.
[2023-08-17] MEDS: LEVOPHED 250 IV (05:01)
[2023-08-17 05:12] LABS: Hematocrit 36.5 % (39.0-52.0); Hemoglobin 12.4 g/dL (13.0-18.0); Mean Corpuscular Hgb 29.3 pg (27.0-31.0); Mean Corpuscular Volume 86.3 fL (80.0-94.0); Mean Platelet Volume 12.7 fL (7.4-10.4); Platelet Count 197 10^3/uL (130-400); Red Blood Cell Count 4.23 10^6/uL (4.70-6.10); Red Cell Dist. Width 14.1 % (11.5-14.5); White Blood Cell Count 14.8 10^3/uL (4.8-10.8)
[2023-08-17 05:38] LABS: Blood Urea Nitrogen 94 mg/dl (9-20); Carbon Dioxide 20 mmol/L (22-30); Chloride 99 mmol/L (98-107); Estimated Creatinine Clearance 10 ml/min; Glucose 139 mg/dl (70-99); Magnesium 1.6 mg/dl (1.6-2.3); Potassium 5.2 mmol/L (3.5-5.1); Sodium 135 mmol/L (135-145); eGFR 5.43
[2023-08-17] MEDS: SODIUM BICARBONATE 1150 MEQ IV (05:58)
[2023-08-17] MEDS: SODIUM BICARBONATE 1075 MEQ IV (06:17)
--- NOTE | 2023-08-17 07:11 | W.PN.INTV ---
Today's Communication / Plan
Recommendations
Continue management per nephrology
Dialysis today
Bicarbonate IV fluids per nephrology
DVT prophylaxis
Wean pressors
Assessment
-
63-year-old male with history of peptic ulcer disease/gastritis, left lower extremity arterial disease 2016, underwent colonoscopy complicated by cecal perforation. Complicated by pneumoperitoneum with perforation, open exploration with right
hemicolectomy and ileostomy. Patient was discharged 07/27/2023, now returns with poor p.o. intake, decreased blood pressure, decreased urination, found to be septic, hypotensive and renal failure.
Sepsis, hypotension
Acute renal failure
Uremia
Hyperkalemia
Metabolic acidemia
VBG pH 7.09
Elevated lactate
Leukocytosis
Hyperglycemia
Poor p.o. intake x 4 days
Possible enteritis per imaging
Cecal polypectomy complicated by perforation
Right hemicolectomy/end ileostomy creation 07/18/2023
Conditions present prior to admission
History of hypertension
GERD/peptic ulcer disease
Bilateral popliteal aneurysm, distal embolization of the left
Intra-arterial lytic therapy/angioplasty/stent graft left popliteal artery
2017 ([facility])
[id number] history of smoking, ongoing
40 pound weight loss since June 2023, postoperatively
Snoring, suspected sleep apnea
Plan/recommendations
At this time, patient is critically ill but stable, still requiring norepinephrine at 8 mcg as of this morning
Patient denies headaches. Blurry vision which he presented with, now resolved, denies any vision issues
Feels much improved since admission
Menjivar catheter in place, minimal output, 40 cc
Plans for hemodialysis today
Mild belching/bloating, increased stool output but patient not aware
Moving forward
Continue with IV fluids per nephrology. HD today
Maintain maps greater than 65
Attempt to wean norepinephrine
Presently without shortness of breath, follow oxygen requirement
Nephrology following
Follow-up potassium, treat hyperkalemia
EKG noted
Abdominal imaging without obvious worsening fluid collection. Possible enteritis
Patient had emesis through the night, no hematemesis
GERD therapy with history of peptic ulcer disease/gastritis
Lomotil per primary service
Aspiration precautions
No indication for antibiotics at this time
Follow urine output, electrolytes, creatinine
Follow acidemia
May require dialysis
DVT prophylaxis: Subcutaneous heparin
Reviewed with patient, critical care nursing
TCCT 31 min
Subjective Dataa
Subjective Data
Date of Service:
Date of Service: August 17, 2023
Subjective:
Patient is feeling well. Denies chest pain, nausea. Has some mild belching. Not aware of any worsening stool output. Currently undergoing hemodialysis
Objective Data
Data Reviewed
Vital Signs / I&O / Oxygen:
Vital Signs
Temp Pulse Resp BP Pulse Ox
98.3 F 82 17 117/78 94
08/17/23 04:35 08/17/23 06:30 08/17/23 06:30 08/17/23 06:30 08/17/23 00:00
Intake and Output
08/16/23 08/17/23 08/18/23
06:59 06:59 06:59
Intake Total 1351.4 / 1351.4
Output Total 940 / 940
Balance 411.4 / 411.4
SaO2 94
Physical Exam
General: Comfortable, Other (Large neck) and Other (Right IJ)
HEENT: Normocephalic and Anicteric
Cardiovascular: S1-S2, [place], Murmur (n), Rub (n), Peripheral Edema (n) and Calf Tenderness (n)
Respiratory: Wheeze (n), Crackles (n) and Rhonchi
GI: Soft, Non Distended and Other (Ostomy intact)
Neurology: Awake, Alert and No Motor Deficits
Skin: Cyanosis (n), Jaundice and Rash (n)
Labs/Micro/Reports
Lab Data
08/17/23 04:44
08/17/23 04:44
Laboratory Results
08/16/23 08/16/23 08/16/23
11:09 17:37 20:12
PT 14.1
INR 1.11
APTT Cancelled 20.3 L
[2023-08-17] MEDS: MAGNESIUM SULFATE 50 IV (07:45)
[2023-08-17] MEDS: HEPARIN 5000 UNITS SC ×2 (07:45→21:05)
--- NOTE | 2023-08-17 10:28 | PTCARENOTE ---
Pt received this am. Assessment as documented. Pt pleasant and cooperative. Denies pain. Denies SOB. Abd obese. Heme + liquid stool from ileostomy.
--- NOTE | 2023-08-17 10:56 | W.PN.NEPH.PH ---
Today's Communication / Plan
-
HD today
Assessment/Plan
-
IMP:
JD (Cr baseline 0.9)
Severe hyperkalemia
HYpotension-shock on pressors
Leucocytosis
Severe A gap met acidosis
Ileus vs enteritis noted on CT
Recent admit for colon perf s/p s/p diagnostic lap with rt hemicolectomy, end ileostomy creation 07/18/23
HTN
GERD
h/o LLE with stent
Plan:
Pt recent d/c for colon perf and s/p right hemicolectomy and ileostomy creation late Jun now returns with decreased po intake and anuria
severe JD-cr peak 14, HD initiated 08/16 for met acidosis and hyperkalemia
suspect he is in ATN phase from prolonged prerenal stimuli, anuric s/p corbett, CT abd no hydro
UA ?UTI, will send serologies
can d/c IVF if po intake is adequate
titrate pressors to maintain MAP >65
HD today
-
-
Date of Service: August 17, 2023
CC / HPI / ROS
-
Chief Complaint:
JD, high k, met acidosis
History of Present Illness:
s/p HD on 08/16, did well
remians on low dose levo
anuric still 40cc, but GI output 900cc
Review of Systems:
no cp or sob
feels well
no abd pain
Labs
-
Labs:
WBC 14.8 10^3/uL (4.8-10.8) H 08/17/23 04:44
RBC 4.23 10^6/uL (4.70-6.10) L 08/17/23 04:44
Hgb 12.4 g/dL (13.0-18.0) L D 08/17/23 04:44
Hct 36.5 % (39.0-52.0) L 08/17/23 04:44
Plt Count 197 10^3/uL (130-400) D 08/17/23 04:44
Sodium 135 mmol/L (135-145) 08/17/23 04:44
Potassium 5.2 mmol/L (3.5-5.1) H 08/17/23 04:44
Chloride 99 mmol/L (98-107) 08/17/23 04:44
Carbon Dioxide 20 mmol/L (22-30) L 08/17/23 04:44
BUN 94 mg/dl (9-20) H 08/17/23 04:44
Creatinine 9.9 mg/dL (0.7-1.3) H* 08/17/23 04:44
eGFR 5.43 08/17/23 04:44
Glucose 139 mg/dl (70-99) H 08/17/23 04:44
Calcium 9.0 mg/dl (8.4-10.2) 08/17/23 04:44
Albumin 5.0 g/dl (3.5-5.0) 08/16/23 11:09
Physical Exam
-
Vital Signs:
Vital Signs
Temp Pulse Resp BP Pulse Ox
97.9 F 87 18 116/70 92
08/17/23 07:37 08/17/23 10:00 08/17/23 10:00 08/17/23 10:00 08/17/23 10:00
Cardiovascular:: Regular rate and rhythm
Respiratory:: Bilateral: CTA
Lung Excursion:: Normal
Abdomen:: Nontender and Soft
Extremity Edema:: None: Bilateral:
Corbett Catheter: Yes
[2023-08-17] MEDS: HEPARIN 500 UNITS IV ×2 (11:55→12:55)
[2023-08-17] MEDS: MANNITOL 12.5 GRAMS IV ×2 (12:05→13:28)
[2023-08-17] MEDS: FLEXBUMIN 25% FOR HEMODIALYSIS 12.5 GRAMS IV ×2 (12:26→13:20)
--- NOTE | 2023-08-17 12:54 | W.PN.HOSP.TC ---
Today's Communication/Plan
-
Wean off pressors as possible
Encourage oral intake
Adding Lomotil scheduled -monitor for side effects
IVF to continue the 24-hour
Hold on antibiotic
Assessment / Plan
Assessment / Plan
CT a/p
1. � Post right hemicolectomy and diverting ileostomy. Resolution of previously seen small bowel obstruction. There are air-fluid levels throughout normal caliber small bowel loops, nonspecific but may be seen in association with ileus and enteritis.
2. � Within the right upper quadrant, minimal residual abnormal soft tissue attenuation related to the prior surgery as detailed above. There are no signs of abscess formation. There is no drainable collection. Resolution of previously seen
perihepatic free fluid. Resolution of pneumoperitoneum.
3. � Resolution of previously seen pleural effusions.

1. Shock - Improved
-suspecting hypovolemic, less likely septic
-got 3L IVF bolus, maintain on D5/bicarb @ 100mls/hr after
-Maintain on levophed pressor to maintain SBP > 100
-wean off as possible with goal SBP > 100
2. Acute renal failure
-Suspecting volume depletion from high output ileostomy
-Patient have Menjivar catheter placed in ER, 40 ml clear urine output today.
-Creatinine of 14/BUN of 108 at admit
-UA showing alb 3+, many bacteria/wbc 11-15, nitrite positive
-Discussed with nephrology and suspecting component of ATN
-CTAP in ER rule out any structural problems
-Got emergent HD cath HD yesterday and today for refractory hyperkalemia.
3.� Hyperkalemia - Improved
-driven by acidosis and renal failure
-Required emergent HD for correction.
-got dose of loklema/insulin-dextrose/Bicab x2 amp and kathy gluconate in ER
4. AGAP metabolic acidosis
� � Mild lactic acidosis
-2/2 to renal failure
-got x2 amp Bicarb, bicabt IVF
5. r/o sepsis
-CT a/p relatively clear, except questionable RUL fluid collection, less likely abscess
-blood cs collected in ER
-UA showing some pyuria/bacteriuria
-giving unasyn x1 dose in ER> monitor off abx for now.
6. Cecal perf post polypectomy
� � S/p right hemicolectomy ileostomy from on 07/18/23
-Stoma functioning appropriately
-CTAP did not show any structural problems
-CRS evaluated - strict I/O requested - already have 900 ml output - adding lomotil
History of peripheral artery disease status post lower extremity stenting
Tobacco use
GERD
Obesity
Hypertriglyceridemia
DVT PPX - heparin subq
Full code
Discussed with [facility]/Nephrology/ICU pharmacy
Total critical care time 45 mins . Total critical care time documented does not include time spent on separately billed procedures or the services of residents, students, nurses or physician assistants. I personally saw and examined the patient. I
have reviewed all diagnostic interpretations and treatment plans as written. I was present for the [place] portions of any procedures performed and the inclusive time noted in any critical care statement. Critical care time includes patient management
by me, time spent at the patients bedside, time to review lab and imaging results, discussing patient care, documentation in the medical record, and time spent with the family or caregiver.
Anticipated Discharge: > 48 hours
Subjective/Interval History
-
Date of Service: August 17, 2023
remains on small dose of levophed
denies abd pain/nausea
afebrile overnight
Objective Data
-
Labs:
Laboratory Results
08/17/23
04:44
WBC 14.8 H
Hgb 12.4 L D
Hct 36.5 L
Plt Count 197 D
Sodium 135
Potassium 5.2 H
Chloride 99
Carbon Dioxide 20 L
BUN 94 H
Creatinine 9.9 H*
Glucose 139 H
Calcium 9.0
Vital Signs:
Vital Signs
Temp Pulse Resp BP Pulse Ox
98.5 F 87 18 116/70 92
08/17/23 12:22 08/17/23 10:00 08/17/23 10:00 08/17/23 10:00 08/17/23 10:00
I&O
08/16/23 08/17/23 08/18/23
06:59 06:59 06:59
Intake Total 1351.4 / 1423.9 267.5 / 267.5
Output Total 940 / 940
Balance 411.4 / 483.9 267.5 / 267.5
Review of Systems
-
Respiratory: Reports No Symptoms
Cardiac: Reports No Symptoms
Abdomen/GI: Denies Abdominal Pain, Nausea or Vomiting
Physical Exam
-
General: Comfortable and Obese
HEENT: Normocephalic and Atraumatic; Negative Oxygen
Respiratory: Clear to Auscultation; Negative Wheezes
Cardiac: Regular Rhythm and S1/S2; Negative Murmur
GI: Soft, Nontender, Nondistended and Ostomy (black stool in ostomy bag)
Genito-urinary: Menjivar (some clean urine)
Neuro: Awake, Alert, Oriented and No Motor Deficits
Psych: Calm
--- NOTE | 2023-08-17 13:34 | W.PN.CRS1 ---
Today's Communication / Plan
-
Continue current diet
Assessment/Plan
-
63-year-old man with a PMH of GERD, hypertension, hyperlipidemia and PVD s/p LLE stent and recent admission 07/18/2023 to 07/27/2023 for cecal perforation and JD requiring urgent ex lap, right hemicolectomy with end ileostomy who presents with
anorexia for 4 days associated with dry heaving, more liquid ostomy output (but states it did not increase in output) and oliguria. CT on presentation with expected post op changes. Being managed for ARF likely secondary to dehydration: He has been
admitted to the ICU and started on hemodialysis/pressors
Pressors being weaned
Afebrile
Ostomy outputs <1L
Urine outputs starting to increase
Leukocytosis trending down off abx, Blood and urine cx thus far negative
- Strict I's and O's, including urine output and ostomy output
- Depending on ostomy outputs, he may need antimotility agent vs fiber supplement
�Continue current diet as tolerated
�No surgical intervention indicated at this point
Subjective Data
Procedure
07/18/23 Diagnostic laparoscopy, exploratory laparotomy, right hemicolectomy, abdominal washout, creation of end ileostomy
Subjective Data
Date of Service: August 17, 2023
Patient seen and examined at bedside with Dr. Dunne. Receiving hemodialysis. Denies n/v but does note some belching. Tolerating diet thus far. Denies abdominal pain.
Objective Data
-
Vital Signs
Temp Pulse Resp BP Pulse Ox
98.5 F 87 18 116/70 92
08/17/23 12:22 08/17/23 10:00 08/17/23 10:00 08/17/23 10:00 08/17/23 10:00
Intake & Output
08/16/23 08/17/23 08/18/23
06:59 06:59 06:59
Intake Total 1351.4 / 1423.9 267.5 / 267.5
Output Total 940 / 940
Balance 411.4 / 483.9 267.5 / 267.5
Intake:
IV fluids (Total) 1301.4 / 1373.9 267.5 / 267.5
0.45%NaCl 1,000 ml @ 50 mls/hr 600 / 650 200 / 200
IV .[id number] JOSIANE with Sodium
Bicarbonate 75 Meq Rx#:[id number]
D5w 1,000 ml @ 150 mls/hr IV . 450 / 450
[id number] JOSIANE with Sodium
Bicarbonate 150 Meq Rx#:
[id number]
Levophed 251.4 / 273.9 67.5 / 67.5
IV piggybacks 50 / 50
Output:
Liquid stool amount 900 / 900
Ileostomy 900 / 900
Urine, Menjivar 40 / 40
Lab Results
08/17/23 04:44
08/17/23 04:44
Physical Exam
-
General: No Acute Distress and AOx3
Abdomen: Soft, Non Distended, Non Tender and Other (Ileostomy warm and pink with function of soft/loose stool)
Incision: No Skin Erythema (old incisions healing well)
[2023-08-17] MEDS: TYLENOL 650 MG PO ×2 (13:36→21:30)
--- NOTE | 2023-08-17 14:12 | W.PN.NEPH.HD ---
Assessment
-
pt seen during HD
vitals stable, remians on 2mcg of norepi
no UF today
gentle IVF wean off as po intake improves
vol status fine
HD again tomorrow
Progress Note - Hemodialysis
-
Date of Service: August 17, 2023
Duration: 45 minutes and 2 hours
Potassium Bath: 2
Calcium Bath: 2.5
Opti-Dialyzer: 160
Ultrafiltration: Other (0)
Blood Flow: 300
Dialysate Flow: 600
Heparin: yesx2
EPO: no
[2023-08-17] MEDS: HEPARIN 2200 UNITS INTRACATH (14:42)
--- NOTE | 2023-08-17 16:00 | PTCARENOTE ---
Pt completed dialysus. No distress. at bedside. No changes in assessment.
[2023-08-17] MEDS: LOMOTIL 1 TABLET PO ×2 (16:40→21:05)
[2023-08-17] MEDS: ZOFRAN 4 MG IV ×2 (17:12→23:19)
--- NOTE | 2023-08-17 20:00 | PTCARENOTE ---
Received pt. at 1900. Pt. currently in bed. Awake, alert, and oriented. No complaints of pain or discomfort at this time. Hearth rhythm sinus. Vasopressors are currently off, BP normotensive. Received HD treatment earlier today, plan for another
treatment tomorrow. Currently on room air. Low sodium diet ordered, pt. has poor appetite. Menjivar catheter in place. Skin as documented. Discussed plan of care. Vital signs stable at this time.
[2023-08-17] MEDS: NSS 1000 IV (23:18)
[2023-08-18] VITALS (33 sets, daily range): BP systolic 86–126; BP diastolic 52–90; BMI 38.9
--- NOTE | 2023-08-18 00:10 | PTCARENOTE ---
Pt. with c/o nausea. PRN IV Zofran given. Pt. also c/o lower back pain, PRN PO Tylenol given. Pt. states pain and nausea have improved. Vasopressors remain off. Blood pressure stable at this time.
[2023-08-18 03:23] LABS: Hemoglobin 11.4 g/dL (13.0-18.0); Mean Corp Hgb Conc. 33.5 g/dL (33.0-37.0); Mean Corpuscular Hgb 29.3 pg (27.0-31.0); Mean Corpuscular Volume 87.4 fL (80.0-94.0); Mean Platelet Volume 12.1 fL (7.4-10.4); Platelet Count 152 10^3/uL (130-400); Red Blood Cell Count 3.89 10^6/uL (4.70-6.10); Red Cell Dist. Width 13.8 % (11.5-14.5); White Blood Cell Count 11.5 10^3/uL (4.8-10.8)
[2023-08-18 03:40] LABS: Blood Urea Nitrogen 64 mg/dl (9-20); Carbon Dioxide 27 mmol/L (22-30); Chloride 98 mmol/L (98-107); Estimated Creatinine Clearance 16 ml/min; Glucose 91 mg/dl (70-99); Magnesium 1.9 mg/dl (1.6-2.3); Potassium 5.1 mmol/L (3.5-5.1); Sodium 135 mmol/L (135-145); eGFR 10.11
--- NOTE | 2023-08-18 04:00 | PTCARENOTE ---
Pt. assessment remains unchanged. AM labs drawn. Vital signs stable at this time.
[2023-08-18] MEDS: LOMOTIL 1 TABLET PO (05:27)
--- NOTE | 2023-08-18 07:17 | W.PN.INTV ---
Today's Communication / Plan
Recommendations
Weaned off pressors
Continue HD per nephrology
Remains on PPI
Strongly recommend outpatient sleep disorder workup, information left in chart
We will sign off. Please call with questions
Assessment
-
63-year-old male with history of peptic ulcer disease/gastritis, left lower extremity arterial disease 2016, underwent colonoscopy complicated by cecal perforation. Complicated by pneumoperitoneum with perforation, open exploration with right
hemicolectomy and ileostomy. Patient was discharged 07/27/2023, now returns with poor p.o. intake, decreased blood pressure, decreased urination, found to be septic, hypotensive and renal failure.
Sepsis, hypotension
Acute renal failure
Uremia
Hyperkalemia
Metabolic acidemia
VBG pH 7.09
Elevated lactate
Leukocytosis
Hyperglycemia
Poor p.o. intake x 4 days
Possible enteritis per imaging
Cecal polypectomy complicated by perforation
Right hemicolectomy/end ileostomy creation 07/18/2023
Conditions present prior to admission
History of hypertension
GERD/peptic ulcer disease
Bilateral popliteal aneurysm, distal embolization of the left
Intra-arterial lytic therapy/angioplasty/stent graft left popliteal artery
2017 ([facility])
[id number] history of smoking, ongoing
40 pound weight loss since June 2023, postoperatively
Snoring, suspected sleep apnea
Plan/recommendations
At this time, patient is improved objectively and subjectively
Weaned off pressors
Feels much improved since admission
Menjivar catheter in place, urine output 400 cc / 24 hours
Tolerating hemodialysis
Mild belching/bloating, increased stool output but patient not aware
Moving forward
Continue with IV fluids per nephrology. HD today
Blood pressures have improved
Presently without shortness of breath, follow oxygen requirement
Nephrology following
Follow-up potassium
Electrolytes have improved
EKG noted
Abdominal imaging without obvious worsening fluid collection. Possible enteritis
Patient had emesis through the night, no hematemesis
GERD therapy with history of peptic ulcer disease/gastritis
Lomotil per primary service
Aspiration precautions
No indication for antibiotics at this time
Follow urine output, electrolytes, creatinine
Follow acidemia
Dialysis per nephrology
Strongly suspect sleep disordered breathing.
Would recommend outpatient pulmonary follow-up/sleep clinic. Information left in chart
DVT prophylaxis: Subcutaneous heparin
Reviewed with patient, critical care nursing
Reviewed with primary service
For transfer out of ICU. We will sign off. Please call with questions
Subjective Dataa
Subjective Data
Date of Service:
Date of Service: August 18, 2023
Subjective:
Patient feeling well. Denies shortness of breath, chest pain, lightheadedness, dizziness. Has mild belching. Continues with HD. Pressors have been weaned off
Objective Data
Data Reviewed
Vital Signs / I&O / Oxygen:
Vital Signs
Temp Pulse Resp BP Pulse Ox
98.7 F 87 12 103/60 94
08/18/23 03:20 08/18/23 06:00 08/18/23 06:00 08/18/23 06:00 08/18/23 06:00
Intake and Output
08/17/23 08/18/23 08/19/23
06:59 06:59 06:59
Intake Total 1351.4 / 1423.9 2117.5 / 2117.5
Output Total 940 / 950 965 / 965
Balance 411.4 / 473.9 1152.5 / 1152.5
SaO2 94
Physical Exam
General: Comfortable, Other (Large neck) and Other (Right IJ/HD)
HEENT: Normocephalic and Anicteric
Cardiovascular: S1-S2, [place], Murmur (n), Rub (n), Peripheral Edema (n) and Calf Tenderness (n)
Respiratory: Wheeze (n), Crackles (n) and Rhonchi
GI: Soft, Non Distended and Other (Ostomy intact)
Neurology: Awake, Alert and No Motor Deficits
Skin: Cyanosis (n), Jaundice and Rash (n)
Labs/Micro/Reports
Lab Data
08/18/23 03:15
08/18/23 03:15
Microbiology
08/16/23 12:31 Blood/Venous Blood Culture - Preliminary
No Growth in 24 hours- Final report to follow
08/16/23 17:37 Urine Urine Culture - Final
NO GROWTH
08/16/23 11:09 Blood/Venous Blood Culture - Preliminary
No Growth in 24 hours- Final report to follow
--- NOTE | 2023-08-18 08:06 | W.PN.HOSP.TC ---
Today's Communication/Plan
-
downgrade to tele
ppi IV
continue lomotil
add midodrine PRN
Assessment / Plan
Assessment / Plan
CT a/p
1. � Post right hemicolectomy and diverting ileostomy. Resolution of previously seen small bowel obstruction. There are air-fluid levels throughout normal caliber small bowel loops, nonspecific but may be seen in association with ileus and enteritis.
2. � Within the right upper quadrant, minimal residual abnormal soft tissue attenuation related to the prior surgery as detailed above. There are no signs of abscess formation. There is no drainable collection. Resolution of previously seen
perihepatic free fluid. Resolution of pneumoperitoneum.
3. � Resolution of previously seen pleural effusions.

1. Shock - Resolved
-suspecting hypovolemic, less likely septic
-got 3L IVF bolus, maintain on D5/bicarb @ 100mls/hr after
-weaned off of levophed
-PRN midodrine ordered to use with HD
2. Acute renal failure
-Suspecting volume depletion from high output ileostomy
-Patient have Menjivar catheter placed in ER, urine output 350ml overnight .
-Creatinine of 14/BUN of 108 at admit
-UA showing alb 3+, many bacteria/wbc 11-15, nitrite positive
-Discussed with nephrology and suspecting component of ATN
-CTAP in ER rule out any structural problems
-Getting HD round 3 today.
3.� Hyperkalemia - Resolved
-driven by acidosis and renal failure
-Required emergent HD for correction.
-got dose of loklema/insulin-dextrose/Bicab x2 amp and kathy gluconate in ER
4. AGAP metabolic acidosis -resolved
� � Mild lactic acidosis -resolved
-2/2 to renal failure
-got x2 amp Bicarb, bicabt IVF
5. Sepsis ruled out
-CT a/p relatively clear, except questionable RUL fluid collection, less likely abscess
-blood cs collected in ER
-UA showing some pyuria/bacteriuria
-giving unasyn x1 dose in ER> monitor off abx for now.
6. Cecal perf post polypectomy
� � S/p right hemicolectomy ileostomy from on 07/18/23
-Stoma functioning appropriately
-CTAP did not show any structural problems
-CRS evaluated - strict I/O requested - already have 900 ml output - adding lomotil
7. Melena
- Haywood test positive on stomy stool
- Hbg 1 point down, if continues to drift down will need GI eval
- maintain on IV ppi bid.
History of peripheral artery disease status post lower extremity stenting
Tobacco use
GERD
Obesity
Hypertriglyceridemia
DVT PPX - heparin subq
Full code
Anticipated Discharge: > 48 hours
Subjective/Interval History
-
Date of Service: August 18, 2023
resting comfortably in bed
no nausea/abd pain overnight
some reported bloating
getting HD during the round, SBP soft in 90s - asymptomatic
Objective Data
-
Labs:
Laboratory Results
08/18/23
03:15
WBC 11.5 H
Hgb 11.4 L
Hct 34.0 L
Plt Count 152 D
Sodium 135
Potassium 5.1
Chloride 98
Carbon Dioxide 27
BUN 64 H
Creatinine 5.9 H*
Glucose 91
Calcium 9.0
Vital Signs:
Vital Signs
Temp Pulse Resp BP Pulse Ox
98.0 F 87 12 103/60 94
08/18/23 07:55 08/18/23 06:00 08/18/23 06:00 08/18/23 06:00 08/18/23 06:00
I&O
08/17/23 08/18/23 08/19/23
06:59 06:59 06:59
Intake Total 1351.4 / 1423.9 2117.5 / 2117.5
Output Total 940 / 950 965 / 965
Balance 411.4 / 473.9 1152.5 / 1152.5
Review of Systems
-
Respiratory: Reports No Symptoms
Cardiac: Reports No Symptoms
Abdomen/GI: Reports Bloated; Denies Abdominal Pain, Nausea or Vomiting
Physical Exam
-
General: Comfortable and Obese
HEENT: Normocephalic and Atraumatic; Negative Oxygen
Respiratory: Clear to Auscultation; Negative Wheezes
Cardiac: Regular Rhythm and S1/S2; Negative Murmur
GI: Soft, Nontender, Nondistended and Ostomy (black stool in ostomy bag)
Genito-urinary: Menjivar (some clean urine)
Neuro: Awake, Alert, Oriented and No Motor Deficits
Psych: Calm
[2023-08-18] MEDS: HEPARIN 500 UNITS IV ×2 (08:15→09:15)
--- NOTE | 2023-08-18 08:31 | PTCARENOTE ---
Pt received this am. Assessment as documented. Pt pleasant and cooperative. Denies pain. Denies SOB. Receiving HD at this time. No distress or complaints offered.
[2023-08-18] MEDS: FLEXBUMIN 25% FOR HEMODIALYSIS 12.5 GRAMS IV (09:47)
[2023-08-18] MEDS: HEPARIN 5000 UNITS SC ×2 (10:17→20:23)
--- NOTE | 2023-08-18 11:08 | W.PN.NEPH.HD ---
Assessment
-
pt seen during HD
vitals stable, off pressors
cotn isotonic IVF till po intake is adequate
next HD on Saturday
no renal recovery yet, oliguric
temp HD catheter, a line poor flow-try alteplase today
Progress Note - Hemodialysis
-
Date of Service: August 18, 2023
Duration: 30 minutes and 3 hours
Potassium Bath: 2
Calcium Bath: 2.5
Opti-Dialyzer: 160
Ultrafiltration: Other (0)
Blood Flow: 400
Dialysate Flow: 600
Heparin: yesx2
EPO: no
--- NOTE | 2023-08-18 11:47 | W.PN.CRS1 ---
Addendum entered and electronically signed by Apolinar Hanson MD 08/18/23 18:45:
I saw and examined the patient.
The ACADEMIC PROGRAM SPECIALIST's note was reviewed and I agree with the note.
Comment:
63-year-old man with a PMH of GERD, hypertension, hyperlipidemia and PVD s/p LLE stent and recent admission 07/18/2023 to 07/27/2023 for cecal perforation and JD requiring urgent ex lap, right hemicolectomy with end ileostomy who presents with
anorexia for 4 days associated with dry heaving, more liquid ostomy output (but states it did not increase in output), and vomiting since last night as well as blurred vision this morning.� Over the last 1 to 2 days, he noticed a decrease in his
urination as well. His BP was 80/60 and HR 108. These improved after fluid, he received 3L in the ED. WBC was 16.9, Cr 14, BUN 108, K 7.3, UA concerning for UTI (+nitrate, 2+ LE, wbc 11-15), CT showing post-operative changes. He was admitted to the
ICU and started on hemodialysis.
-Appreciate hospitalist and nephrology for severe DJ likely related to dehydration
-UOP improving but still oliguric, likely HD on Saturday
-Uncertain so far the etiology for the anorexia/poor intake leading to severe dehydration and JD; UCx and BCx negative
-Anorexia improving per patient
-Strict I's and O's, including urine output and ostomy output
-continue Imodium BID with fiber; goal is >200mL and <1L per 24hr period
�Okay for diet and DVT PPx from CRS standpoint
� Will follow peripherally, please call for any questions or concerns
Original Note:
Today's Communication / Plan
-
Continue diet
Add fiber and loperamide
Assessment/Plan
-
63-year-old man with a PMH of GERD, hypertension, hyperlipidemia and PVD s/p LLE stent and recent admission 07/18/2023 to 07/27/2023 for cecal perforation and JD requiring urgent ex lap, right hemicolectomy with end ileostomy who presents with
anorexia for 4 days associated with dry heaving, more liquid ostomy output and oliguria. CT on presentation with expected post op changes. Being managed for ARF likely secondary to dehydration: He was admitted to the ICU and started on
hemodialysis/pressors
Pressors now weaned off, on HD today. For transfer out of ICU to tele
Afebrile
Goal Ostomy outputs <1L over 24h
Urine outputs starting to increase, still with oliguria
Leukocytosis trending down off abx, Blood and urine cx thus far negative
- Strict I's and O's
- IVF as per nephrology
- Ostomy outputs more liquid today: 600 overnight with full bag on exam
- Start Loperamide 2mg bid and Metamucil daily
�Continue current diet as tolerated
Subjective Data
Procedure
07/18/23 Diagnostic laparoscopy, exploratory laparotomy, right hemicolectomy, abdominal washout, creation of end ileostomy
Subjective Data
Date of Service: August 18, 2023
Patient seen and evaluated at bedside. Currently on HD. Reports he is feeling better today and appetite is returned. Denies n/v. Tolerating diet but eating small amounts. Denies pain.
Objective Data
-
Vital Signs
Temp Pulse Resp BP Pulse Ox
98.2 F 81 18 105/71 95
08/18/23 11:33 08/18/23 08:15 08/18/23 08:15 08/18/23 08:15 08/18/23 08:15
Intake & Output
08/17/23 08/18/23 08/19/23
06:59 06:59 06:59
Intake Total 1351.4 / 1423.9 2117.5 / 2167.5 150 / 150
Output Total 940 / 950 965 / 965
Balance 411.4 / 473.9 1152.5 / 1202.5 150 / 150
Intake:
Oral fluids 790 / 790
IV fluids (Total) 1301.4 / 1373.9 1327.5 / 1377.5 150 / 150
0.45%NaCl 1,000 ml @ 50 mls/hr 600 / 650 850 / 850
IV .[id number] JOSIANE with Sodium
Bicarbonate 75 Meq Rx#:[id number]
D5w 1,000 ml @ 150 mls/hr IV . 450 / 450
Q7H40M JOSIANE with Sodium
Bicarbonate 150 Meq Rx#:
[id number]
Levophed 251.4 / 273.9 127.5 / 127.5
Nss 1,000 ml @ 50 mls/hr IV . 350 / 400 150 / 150
Q20H JOSIANE Rx#:[id number]
IV piggybacks 50 / 50
Output:
Liquid stool amount 900 / 900 600 / 600
Ileostomy 900 / 900 600 / 600
Urine, Menjivar 40 / 50 365 / 365
Lab Results
08/18/23 03:15
08/18/23 03:15
Physical Exam
-
General: No Acute Distress
Abdomen: Soft, Non Distended, Non Tender and Other (Ileostomy warm/pale with function, liquid stool noted)
Skin: Warm and Dry
Incision: No Skin Erythema (old incisions healing well)
[2023-08-18] MEDS: CATHFLO/ACTIVASE 2 MG IV ×2 (11:48→11:49)
[2023-08-18] MEDS: ProAmatine 10 MG PO (12:53)
[2023-08-18] MEDS: PROTONIX 40 MG PO ×2 (12:53→20:23)
[2023-08-18] MEDS: METAMUCIL, KONSYL 1 PACKET PO (12:53)
--- NOTE | 2023-08-18 17:15 | PTCARENOTE ---
Report given and pt transferred to 325. No distress
[2023-08-18] MEDS: TRICOR 145 MG PO (17:46)
[2023-08-18] MEDS: LIPITOR 40 MG PO (17:46)
[2023-08-18] MEDS: ProAmatine PO (17:47)
[2023-08-18] MEDS: NSS 1000 IV (17:47)
[2023-08-18] MEDS: TYLENOL 650 MG PO ×2 (18:04→22:10)
[2023-08-18] MEDS: NSS IV (18:55)
[2023-08-18] MEDS: IMODIUM 2 MG PO (20:23)
[2023-08-19] VITALS (7 sets, daily range): BP systolic 99–128; BP diastolic 55–67; BMI 38.8
[2023-08-19 01:13] LABS: Complement C3 103 mg/dl (88-165)
[2023-08-19 05:59] LABS: Hematocrit 32.8 % (39.0-52.0); Hemoglobin 10.8 g/dL (13.0-18.0); Mean Corp Hgb Conc. 32.9 g/dL (33.0-37.0); Mean Corpuscular Hgb 28.5 pg (27.0-31.0); Mean Corpuscular Volume 86.5 fL (80.0-94.0); Mean Platelet Volume 12.3 fL (7.4-10.4); Platelet Count 137 10^3/uL (130-400); Red Blood Cell Count 3.79 10^6/uL (4.70-6.10); Red Cell Dist. Width 13.7 % (11.5-14.5); White Blood Cell Count 8.6 10^3/uL (4.8-10.8)
[2023-08-19 06:43] LABS: Blood Urea Nitrogen 41 mg/dl (9-20); Calcium 8.9 mg/dl (8.4-10.2); Carbon Dioxide 26 mmol/L (22-30); Chloride 99 mmol/L (98-107); Estimated Creatinine Clearance 24 ml/min; Glucose 93 mg/dl (70-99); Potassium 4.2 mmol/L (3.5-5.1); Sodium 133 mmol/L (135-145); eGFR 16.12
[2023-08-19] MEDS: HEPARIN 5000 UNITS SC ×2 (08:08→20:08)
[2023-08-19] MEDS: PROTONIX 40 MG PO ×2 (08:09→20:08)
[2023-08-19] MEDS: METAMUCIL, KONSYL 1 PACKET PO (08:09)
[2023-08-19] MEDS: ProAmatine PO ×3 (08:09→17:05)
[2023-08-19] MEDS: IMODIUM 2 MG PO ×2 (08:09→20:08)
--- NOTE | 2023-08-19 10:28 | W.PN.CRS1 ---
Addendum entered and electronically signed by Luke Dunne MD 08/19/23 17:20:
I saw and examined the patient.
The PA's note was reviewed and I agree with the note.
Comment:
Patient seen in a.m. with PA.
No particular complaints.
Vitals reasonable. Creatinine down to 4.0. Making some urine.
Abdomen soft nontender and nondistended.
Continue medical management. For hemodialysis tomorrow apparently.
Will continue to follow.
Original Note:
Today's Communication / Plan
-
Dialysis per nephrology
Continue diet
Monitor ileostomy output
Assessment/Plan
-
Assessment: 63-year-old man with a PMH of GERD, hypertension, hyperlipidemia and PVD s/p LLE stent and recent admission 07/18/2023 to 07/27/2023 for cecal perforation and JD requiring urgent ex lap, right hemicolectomy with end ileostomy who presents
with anorexia for 4 days associated with dry heaving, more liquid ostomy output (but states it did not increase in output), and vomiting since last night as well as blurred vision this morning.� Over the last 1 to 2 days, he noticed a decrease in
his urination as well. His BP was 80/60 and HR 108. These improved after fluid, he received 3L in the ED. WBC was 16.9, Cr 14, BUN 108, K 7.3, UA concerning for UTI (+nitrate, 2+ LE, wbc 11-15), CT showing post-operative changes. He was admitted to
the ICU and started on hemodialysis.
Plan:
1. Vitals normal. WBC normal.
2. Creatinine improving now 4.0.
3. Patient now with appetite and tolerating a diet.
4. Likely another round of dialysis before discharge.
5. Continue strict I's and O's, including urine output and ostomy output. Continue Imodium twice daily with fiber. Colostomy output 800 mL over past 24 hours. Goal is >200mL and <1L per 24hr .
Subjective Data
Procedure
07/18/23 Diagnostic laparoscopy, exploratory laparotomy, right hemicolectomy, abdominal washout, creation of end ileostomy
Subjective Data
Date of Service: August 19, 2023
Patient he feels tired. He denies pain. He has an appetite. He denies nausea or vomiting. He is overall feeling much better. His ileostomy is producing.
Objective Data
-
Vital Signs
Temp Pulse Resp BP Pulse Ox
98 F 73 16 113/61 98
08/19/23 07:42 08/19/23 08:09 08/19/23 07:42 08/19/23 08:09 08/19/23 07:42
Intake & Output
08/18/23 08/19/23 08/20/23
06:59 06:59 06:59
Intake Total 2117.5 / 2167.5 2290 / 2290
Output Total 1965 / 1965 1615 / 1615
Balance 152.5 / 202.5 675 / 675
Intake:
Oral fluids 790 / 790 1740 / 1740
IV fluids (Total) 1327.5 / 1377.5 550 / 550
0.45%NaCl 1,000 ml @ 50 mls/hr 850 / 850
IV .[id number] JOSIANE with Sodium
Bicarbonate 75 Meq Rx#:[id number]
Levophed 127.5 / 127.5
Nss 1,000 ml @ 50 mls/hr IV . 350 / 400 500 / 500
Q20H JOSIANE Rx#:[id number]
Output:
Liquid stool amount 1600 / 1600 800 / 800
Ileostomy 1600 / 1600 800 / 800
Urine, Menjivar 365 / 365 315 / 315
Urine, Voided 500 / 500
Other:
Number of approximated LARGE 3
amounts of urine
Lab Results
08/19/23 05:35
08/19/23 05:35
Physical Exam
-
General: No Acute Distress and AOx3
Abdomen: Soft, Non Distended and Non Tender
Skin: Warm and Dry
Incision: Clear, Dry, Intact and Other (Ileostomy warm and pink with function)
[2023-08-19] MEDS: TYLENOL 650 MG PO ×3 (10:41→23:04)
--- NOTE | 2023-08-19 11:00 | WOUNDNOTE ---
[facility] RN Note: Patient admitted with ARF. Patient is mobile. He stated he is having no problems with his ostomy. His changes his pouch at home and he is current with LOYDA WRIGHT. He empties his own pouch at home. Changed patient's ileostomy appliance
using Andrew wafer # [id number], Valerie seal and Andrew pouch # [id number]. Extra ostomy appliance left in room. He stated he has plenty of ostomy supplies at home. Updated LEN Sung. Next appliance change due which nursing can assist if
needed.
--- NOTE | 2023-08-19 11:51 | W.PN.NEPH.PH ---
Today's Communication / Plan
-
follow BMP
Assessment/Plan
-
IMP:
JD (Cr baseline 0.9)
Severe hyperkalemia
HYpotension-shock on pressors
Leucocytosis
Severe A gap met acidosis
Ileus vs enteritis noted on CT
Recent admit for colon perf s/p s/p diagnostic lap with rt hemicolectomy, end ileostomy creation 07/18/23
HTN
GERD
h/o LLE with stent
Plan:
-check BMP in am
-likely will need HD tomorrow
-d/w pt possibility of recovery and no longer needing HD, or delayed recovery and need for Tunnelled CVC and OP JD-HD arrangements (which would delay d/c)
-
-
Date of Service: August 19, 2023
CC / HPI / ROS
-
Chief Complaint:
JD, high k, met acidosis
History of Present Illness:
s/p HD yesterday without issues
Cr down to 4 after 3 txs
BP stable low
nonoliguric
Review of Systems:
no cp or sob
feels well
no abd pain
Labs
-
Labs:
WBC 8.6 10^3/uL (4.8-10.8) 08/19/23 05:35
RBC 3.79 10^6/uL (4.70-6.10) L 08/19/23 05:35
Hgb 10.8 g/dL (13.0-18.0) L 08/19/23 05:35
Hct 32.8 % (39.0-52.0) L 08/19/23 05:35
Plt Count 137 10^3/uL (130-400) 08/19/23 05:35
Sodium 133 mmol/L (135-145) L 08/19/23 05:35
Potassium 4.2 mmol/L (3.5-5.1) 08/19/23 05:35
Chloride 99 mmol/L (98-107) 08/19/23 05:35
Carbon Dioxide 26 mmol/L (22-30) 08/19/23 05:35
BUN 41 mg/dl (9-20) H 08/19/23 05:35
Creatinine 4.0 mg/dL (0.7-1.3) H 08/19/23 05:35
eGFR 16.12 08/19/23 05:35
Glucose 93 mg/dl (70-99) 08/19/23 05:35
Calcium 8.9 mg/dl (8.4-10.2) 08/19/23 05:35
Albumin 5.0 g/dl (3.5-5.0) 08/16/23 11:09
Physical Exam
-
Vital Signs:
Vital Signs
Temp Pulse Resp BP Pulse Ox
98.6 F 80 16 101/66 95
08/19/23 11:21 08/19/23 11:21 08/19/23 11:21 08/19/23 11:21 08/19/23 11:21
Cardiovascular:: Regular rate and rhythm
Respiratory:: Bilateral: CTA
Lung Excursion:: Normal
Abdomen:: Nontender and Soft
Bowel Sounds:: Normal
Extremity Edema:: None: Bilateral:
--- NOTE | 2023-08-19 14:09 | VNURNOTE ---
Patient is current with [facility] since 07/28 w/SN, will monitor progress and plan at discharge.
--- NOTE | 2023-08-19 14:20 | W.PN.HOSP.TC ---
Today's Communication/Plan
-
HD tomorrow
Monitor BMP
Assessment / Plan
Assessment / Plan
CT a/p
1. � Post right hemicolectomy and diverting ileostomy. Resolution of previously seen small bowel obstruction. There are air-fluid levels throughout normal caliber small bowel loops, nonspecific but may be seen in association with ileus and enteritis.
2. � Within the right upper quadrant, minimal residual abnormal soft tissue attenuation related to the prior surgery as detailed above. There are no signs of abscess formation. There is no drainable collection. Resolution of previously seen
perihepatic free fluid. Resolution of pneumoperitoneum.
3. � Resolution of previously seen pleural effusions.

#Acute renal failure
-Suspecting volume depletion from high output ileostomy, and Shock resulting in ATN
-COntinue HD
-Hopeful for recovery
-HD tomorrow, CTM renal function
-Patient urinating
#Shock - Resolved
-suspecting hypovolemic, less likely septic
-got 3L IVF bolus, maintain on D5/bicarb @ 100mls/hr after
-weaned off of levophed
-PRN midodrine ordered to use with HD
#Hyperkalemia - Resolved
-driven by acidosis and renal failure
-HD
#AGAP metabolic acidosis -resolved
� � Mild lactic acidosis -resolved
-2/2 to renal failure
# Cecal perf post polypectomy
� � S/p right hemicolectomy ileostomy from on 07/18/23
-Stoma functioning appropriately
-CTAP did not show any structural problems
-CRS evaluated - strict I/O requested - already have 900 ml output - adding lomotil
#Melena
- Caruthers test positive on stomy stool
- Hbg 1 point down, if continues to drift down will need GI eval
- maintain on IV ppi bid.
#Hyponatremia, mild
-ctm with HD
History of peripheral artery disease status post lower extremity stenting
Tobacco use
GERD
Obesity
Hypertriglyceridemia
DVT PPX - heparin subq
Full code
Anticipated Discharge: 24 - 48 hours
Subjective/Interval History
-
Date of Service: August 19, 2023
no acute events
Objective Data
-
Labs:
Laboratory Results
08/19/23
05:35
WBC 8.6
Hgb 10.8 L
Hct 32.8 L
Plt Count 137
Sodium 133 L
Potassium 4.2
Chloride 99
Carbon Dioxide 26
BUN 41 H
Creatinine 4.0 H
Glucose 93
Calcium 8.9
Vital Signs:
Vital Signs
Temp Pulse Resp BP Pulse Ox
98.6 F 80 16 131/74 95
08/19/23 11:21 08/19/23 11:21 08/19/23 11:21 08/19/23 13:00 08/19/23 11:21
I&O
08/18/23 08/19/23 08/20/23
06:59 06:59 06:59
Intake Total 2117.5 / 2167.5 2290 / 2290
Output Total 1965 / 1965 1615 / 1615
Balance 152.5 / 202.5 675 / 675
Review of Systems
-
Respiratory: Reports No Symptoms
Cardiac: Reports No Symptoms
Abdomen/GI: Reports Bloated; Denies Abdominal Pain, Nausea or Vomiting
Physical Exam
-
General: Comfortable and Obese
HEENT: Normocephalic and Atraumatic; Negative Oxygen
Respiratory: Clear to Auscultation; Negative Wheezes
Cardiac: Regular Rhythm and S1/S2; Negative Murmur
GI: Soft, Nontender, Nondistended and Ostomy (black stool in ostomy bag)
Genito-urinary: Menjivar (some clean urine)
Neuro: Awake, Alert, Oriented and No Motor Deficits
Psych: Calm
Data Reviewed
-
Diagnostic Radiology: Image personally visualized and interpreted and Report Reviewed by me
CT Scan: Image personally visualized and interpreted and Report Reviewed by me
Labs: Labs Reviewed by me
--- NOTE | 2023-08-19 15:43 | CM ---
Reviewed chart, met with patient to obtain information for assessment. Patient stated that he lives with his in a one story home with one step to enter. He has been independent with his ADLs, personal care, dressing, bathing and toileting. He
ambulates independently without device.
Patient has a first floor set up. Bedroom, bathroom and kitchen are all on one floor.
His assists with drug and alcohol counsellor, cooking, cleaning and laundry. She drives patient to his appointments and does all of the shopping.
Patient has a prescription plan and uses [facility] in [place] for all of his medications.
He has a PCP, Timi Arriaga.
Patient feels that he will be able to return home when stable medically.
Plan: Case management will continue to follow and assist with discharge planning. Patient would like to return home when stable.
[2023-08-19] MEDS: LIPITOR 40 MG PO (17:02)
[2023-08-19] MEDS: TRICOR 145 MG PO (17:02)
[2023-08-19 23:11] LABS: ANA, IgG Reflex to HEp-2 None Detected (None Detected)
[2023-08-20 03:00] VITALS: BP 122/74
[2023-08-20 03:48] VITALS: BMI 38.3
[2023-08-20] MEDS: TYLENOL 650 MG PO (04:24)
[2023-08-20 07:00] VITALS: BP 130/70
[2023-08-20] MEDS: HEPARIN 500 UNITS IV ×2 (07:55→08:55)
--- NOTE | 2023-08-20 08:26 | PN.CDI ---
CDI
- -
CDI:
Physician Documentation Request
Admit Date: 08/16/23 13:27
Dear Doctor Alden,
Please review the following and provide your response in the progress notes.
Clinical Indicators:
- On 08/16 admission - Magnesium level 1.2
- 08/16-08/17 2 gram Magnesium given x 2
Laboratory Tests
08/16/23 08/16/23 08/16/23
11:09 14:19 20:12
Magnesium 1.2 L 1.1 L 1.2 L
08/17/23 08/18/23
04:44 03:15
Magnesium 1.6 1.9
Please provide a diagnosis for the above lab values that were monitored and treatment rendered:
Hypomagnesemia
Clinically insignificant abnormal lab value
Other
Use of terms such as suspected, likely, concern for, or probable (associated with a specific diagnosis that is being evaluated, monitored, or treated as if it exists) are acceptable and can be coded in the inpatient setting, when documented at the
time of discharge.
Thank you,
Jonathan Dalton RN
CDI Specialist
Please use your independent medical judgment in providing your response.
[2023-08-20 08:35] LABS: % Basophils 0.5 % (0-2); % Eosinophils 6.3 % (0-6); % Immature Granulocytes 0.7 % (0-0.5); % Lymphocytes 27.1 % (20.5-51.1); % Monocytes 10.3 % (1.7-9.3); % Neutrophils 55.1 % (42.2-75.2); Absolute Eosinophils 0.5 10^3/uL (0-0.7); Absolute Immature Granulocytes 0.1 10^3/uL (0-0.05); Absolute Lymphocytes 2.3 10^3/uL (1.2-3.4); Absolute Monocytes 0.9 10^3/uL (0.1-0.6); Absolute Neutrophils 4.6 10^3/uL (1.4-6.5); Hematocrit 31.8 % (39.0-52.0); Hemoglobin 10.3 g/dL (13.0-18.0); Mean Corp Hgb Conc. 32.4 g/dL (33.0-37.0); Mean Corpuscular Hgb 28.8 pg (27.0-31.0); Mean Corpuscular Volume 88.8 fL (80.0-94.0); Nucleated Red Blood Cells % 0 % (-); Platelet Count 141 10^3/uL (130-400); Red Blood Cell Count 3.58 10^6/uL (4.70-6.10); Red Cell Dist. Width 13.5 % (11.5-14.5); White Blood Cell Count 8.4 10^3/uL (4.8-10.8)
[2023-08-20 09:10] LABS: Blood Urea Nitrogen 39 mg/dl (9-20); Calcium 9.3 mg/dl (8.4-10.2); Carbon Dioxide 24 mmol/L (22-30); Chloride 105 mmol/L (98-107); Estimated Creatinine Clearance 35 ml/min; Glucose 89 mg/dl (70-99); Potassium 4.2 mmol/L (3.5-5.1); Sodium 136 mmol/L (135-145); eGFR 25.84
--- NOTE | 2023-08-20 09:55 | W.PN.CRS1 ---
Today's Communication / Plan
-
continue fiber/Imodium
f/u with Dr. Hanson as scheduled
Assessment/Plan
-
Assessment: 63-year-old man with a PMH of GERD, hypertension, hyperlipidemia and PVD s/p LLE stent and recent admission 07/18/2023 to 07/27/2023 for cecal perforation and JD requiring urgent ex lap, right hemicolectomy with end ileostomy who presents
with anorexia for 4 days associated with dry heaving, more liquid ostomy output (but states it did not increase in output), and vomiting since last night as well as blurred vision this morning.� Over the last 1 to 2 days, he noticed a decrease in
his urination as well. His BP was 80/60 and HR 108. These improved after fluid, he received 3L in the ED. WBC was 16.9, Cr 14, BUN 108, K 7.3, UA concerning for UTI (+nitrate, 2+ LE, wbc 11-15), CT showing post-operative changes. He was admitted to
the ICU and started on hemodialysis.
Plan:
1.� Vitals normal.� WBC normal.
2.� Creatinine improving now 2.7.
3.� Patient is tolerating a 2g sodium diet.
4.� Currently undergoing dialysis.
5.� Continue strict I's and O's, including urine output and ostomy output.� Continue Imodium twice daily with fiber.� Colostomy output 800 mL over past 24 hours. Goal is >200mL and <1L per 24hr .
6. Follow up in the office with Dr. Hanson as scheduled.
7. I updated his Ivonne via phone.
Subjective Data
Procedure
07/18/23 Diagnostic laparoscopy, exploratory laparotomy, right hemicolectomy, abdominal washout, creation of end ileostomy
Subjective Data
Date of Service: August 20, 2023
Patienet states he has no nausea or vomiting. He has no abdominal pain. He overall is feeling better.
Objective Data
-
Vital Signs
Temp Pulse Resp BP Pulse Ox
98.6 F 75 18 130/70 94
08/20/23 07:00 08/20/23 07:00 08/20/23 07:00 08/20/23 07:00 08/20/23 07:00
Intake & Output
08/19/23 08/20/23 08/21/23
06:59 06:59 06:59
Intake Total 2290 / 2290 900 / 900
Output Total 1615 / 1615 850 / 850
Balance 675 / 675 50 / 50
Intake:
Oral fluids 1740 / 1740 900 / 900
IV fluids (Total) 550 / 550
Nss 1,000 ml @ 50 mls/hr IV . 500 / 500
Q20H JOSIANE Rx#:[id number]
Output:
Liquid stool amount 800 / 800 250 / 250
Ileostomy 800 / 800 250 / 250
Urine, Menjivar 315 / 315 600 / 600
Urine, Voided 500 / 500
Other:
Number of approximated LARGE 3
amounts of urine
Lab Results
08/20/23 07:50
08/20/23 07:50
Physical Exam
-
General: No Acute Distress and AOx3
Abdomen: Soft, Non Distended, Non Tender and Other (colostomy warm and pink)
Skin: Warm and Dry
Incision: Clear, Dry, Intact
[2023-08-20] MEDS: ProAmatine PO ×3 (10:16→17:26)
[2023-08-20] MEDS: METAMUCIL, KONSYL 1 PACKET PO (10:48)
[2023-08-20] MEDS: HEPARIN 5000 UNITS SC ×2 (10:49→22:07)
[2023-08-20] MEDS: IMODIUM 2 MG PO ×2 (10:49→22:08)
[2023-08-20] MEDS: PROTONIX 40 MG PO ×2 (10:49→22:08)
[2023-08-20 11:00] VITALS: BP 124/78
[2023-08-20] MEDS: HEPARIN 2200 UNITS INTRACATH (11:00)
[2023-08-20 11:35] VITALS: BP 101/75
--- NOTE | 2023-08-20 11:35 | W.PN.NEPH.HD ---
Assessment
-
Seen on HD. Cr continues to improved between treatments.
good UOP, he does not require further dialysis. will terminate treatment at 2.5 hrs today
voiding trial
If Cr trend good, d/c temp CVC tomorrow
Progress Note - Hemodialysis
-
Date of Service: August 20, 2023
Duration: 30 minutes and 3 hours
Potassium Bath: 3
Calcium Bath: 2.5
Opti-Dialyzer: 160
Ultrafiltration: Other (no)
Blood Flow: 400
Dialysate Flow: 600
Heparin: 500x2
EPO: 0
--- NOTE | 2023-08-20 13:51 | W.PN.HOSP.TC ---
Today's Communication/Plan
-
HD today
TOV
monitor scr
Hopeful DC off HD cath tomorrow
Assessment / Plan
Assessment / Plan
CT a/p
1. � Post right hemicolectomy and diverting ileostomy. Resolution of previously seen small bowel obstruction. There are air-fluid levels throughout normal caliber small bowel loops, nonspecific but may be seen in association with ileus and enteritis.
2. � Within the right upper quadrant, minimal residual abnormal soft tissue attenuation related to the prior surgery as detailed above. There are no signs of abscess formation. There is no drainable collection. Resolution of previously seen
perihepatic free fluid. Resolution of pneumoperitoneum.
3. � Resolution of previously seen pleural effusions.

#Acute renal failure
-Suspecting volume depletion from high output ileostomy, and Shock resulting in ATN
-COntinue HD
-Hopeful for recovery
-Serum creatinine improving between sessions,
-HD today
� Hopeful serum creatinine trending in the right direction tomorrow and will DC temporary catheter
-trial of void
-Patient urinating
#Shock - Resolved
-suspecting hypovolemic, less likely septic
-got 3L IVF bolus, maintain on D5/bicarb @ 100mls/hr after
-weaned off of levophed
-PRN midodrine ordered to use with HD
#Hyperkalemia - Resolved
-driven by acidosis and renal failure
-HD
#AGAP metabolic acidosis -resolved
� � Mild lactic acidosis -resolved
-2/2 to renal failure
# Cecal perf post polypectomy
� � S/p right hemicolectomy ileostomy from on 07/18/23
-Stoma functioning appropriately
-CTAP did not show any structural problems
-CRS evaluated - strict I/O requested - already have 900 ml output - adding lomotil
#Melena
- [place] test positive on stomy stool
- Hbg 1 point down, if continues to drift down will need GI eval
- maintain on IV ppi bid.
#Hyponatremia, mild
-ctm with HD
History of peripheral artery disease status post lower extremity stenting
Tobacco use
GERD
Obesity
Hypertriglyceridemia
DVT PPX - heparin subq
Full code
Anticipated Discharge: Within 24 hours
Subjective/Interval History
-
Date of Service: August 20, 2023
Creatinine improved this between treatments
Objective Data
-
Labs:
Laboratory Results
08/20/23
07:50
WBC 8.4
Hgb 10.3 L
Hct 31.8 L
Plt Count 141
Sodium 136
Potassium 4.2
Chloride 105
Carbon Dioxide 24
BUN 39 H
Creatinine 2.7 H
Glucose 89
Calcium 9.3
Vital Signs:
Vital Signs
Temp Pulse Resp BP Pulse Ox
98.1 F 83 20 124/78 97
08/20/23 11:00 08/20/23 11:00 08/20/23 11:00 08/20/23 11:00 08/20/23 11:00
I&O
08/19/23 08/20/23 08/21/23
06:59 06:59 06:59
Intake Total 2290 / 2290 900 / 900
Output Total 1615 / 1615 850 / 850
Balance 675 / 675 50 / 50
Review of Systems
-
Respiratory: Reports No Symptoms
Cardiac: Reports No Symptoms
Abdomen/GI: Reports Bloated; Denies Abdominal Pain, Nausea or Vomiting
Physical Exam
-
General: Comfortable and Obese
HEENT: Normocephalic and Atraumatic; Negative Oxygen
Respiratory: Clear to Auscultation; Negative Wheezes
Cardiac: Regular Rhythm and S1/S2; Negative Murmur
GI: Soft, Nontender, Nondistended and Ostomy (black stool in ostomy bag)
Genito-urinary: Menjivar (some clean urine)
Neuro: Awake, Alert, Oriented and No Motor Deficits
Psych: Calm
Data Reviewed
-
Diagnostic Radiology: Image personally visualized and interpreted and Report Reviewed by me
CT Scan: Image personally visualized and interpreted and Report Reviewed by me
Labs: Labs Reviewed by me
[2023-08-20 15:00] VITALS: BP 113/72
[2023-08-20] MEDS: LIPITOR 40 MG PO (17:25)
[2023-08-20] MEDS: TRICOR 145 MG PO (17:25)
[2023-08-20 19:42] VITALS: BP 111/64
[2023-08-20 20:44] LABS: Alpha 1 Globulin 0.34 g/dL (0.19-0.46); Alpha 2 Globulin 0.77 g/dL (0.48-1.05); SPEP IFE Reflex Not Done; Total Protein-Electrophoresis 6.2 g/dL (6.3-8.2)
[2023-08-20 21:16] LABS: Glucose - Point of Care 95 mg/dl (70-99)
[2023-08-20 22:04] LABS: Myeloperoxidase Antibody 0 AU/mL (0-19); Serine Protease-3, IgG 0 AU/mL (0-19)
[2023-08-21 01:00] VITALS: BP 101/75
[2023-08-21 03:53] VITALS: BP 116/71
[2023-08-21 06:00] VITALS: BMI 38.4
[2023-08-21 06:17] LABS: % Basophils 0.5 % (0-2); % Eosinophils 6.1 % (0-6); % Immature Granulocytes 0.9 % (0-0.5); % Lymphocytes 29.8 % (20.5-51.1); % Monocytes 11.2 % (1.7-9.3); % Neutrophils 51.5 % (42.2-75.2); Absolute Eosinophils 0.5 10^3/uL (0-0.7); Absolute Immature Granulocytes 0.1 10^3/uL (0-0.05); Absolute Lymphocytes 2.4 10^3/uL (1.2-3.4); Absolute Monocytes 0.9 10^3/uL (0.1-0.6); Absolute Neutrophils 4.1 10^3/uL (1.4-6.5); Hematocrit 32.4 % (39.0-52.0); Hemoglobin 10.8 g/dL (13.0-18.0); Mean Corp Hgb Conc. 33.3 g/dL (33.0-37.0); Mean Corpuscular Hgb 28.6 pg (27.0-31.0); Mean Corpuscular Volume 85.9 fL (80.0-94.0); Mean Platelet Volume 12.5 fL (7.4-10.4); Nucleated Red Blood Cells % 0 % (-); Platelet Count 160 10^3/uL (130-400); Red Blood Cell Count 3.77 10^6/uL (4.70-6.10); Red Cell Dist. Width 13.2 % (11.5-14.5); White Blood Cell Count 7.9 10^3/uL (4.8-10.8)
[2023-08-21 06:42] LABS: Blood Urea Nitrogen 26 mg/dl (9-20); Calcium 9.5 mg/dl (8.4-10.2); Carbon Dioxide 28 mmol/L (22-30); Chloride 101 mmol/L (98-107); Estimated Creatinine Clearance 52 ml/min; Glucose 109 mg/dl (70-99); Sodium 136 mmol/L (135-145); eGFR 42.03
[2023-08-21 07:30] VITALS: BP 113/71
[2023-08-21] MEDS: IMODIUM 2 MG PO (09:14)
[2023-08-21] MEDS: METAMUCIL, KONSYL 1 PACKET PO (09:14)
[2023-08-21] MEDS: ProAmatine PO ×2 (09:15→12:43)
[2023-08-21] MEDS: HEPARIN 5000 UNITS SC (09:15)
[2023-08-21] MEDS: PROTONIX 40 MG PO (09:16)
[2023-08-21 11:10] VITALS: BP 117/64
--- NOTE | 2023-08-21 11:17 | W.PN.CRS1 ---
Today's Communication / Plan
-
Doing well from a surgical standpoint
Follow-up in the office as an outpatient
Assessment/Plan
-
Assessment: 63-year-old man with a PMH of GERD, hypertension, hyperlipidemia and PVD s/p LLE stent and recent admission 07/18/2023 to 07/27/2023 for cecal perforation and JD requiring urgent ex lap, right hemicolectomy with end ileostomy who presents
with anorexia for 4 days associated with dry heaving, more liquid ostomy output (but states it did not increase in output), and vomiting since last night as well as blurred vision this morning.� Over the last 1 to 2 days, he noticed a decrease in
his urination as well. His BP was 80/60 and HR 108. These improved after fluid, he received 3L in the ED. WBC was 16.9, Cr 14, BUN 108, K 7.3, UA concerning for UTI (+nitrate, 2+ LE, wbc 11-15), CT showing post-operative changes. He was admitted to
the ICU and started on hemodialysis.
Plan:
1.� Vitals normal.� WBC normal.
2.� Creatinine improving now 1.8.
3.� Patient is tolerating a 2g sodium diet.
4.� Dialysis per nephrology.
5. Follow up in the office with Dr. Hanson as scheduled.
Subjective Data
Procedure
07/18/23 Diagnostic laparoscopy, exploratory laparotomy, right hemicolectomy, abdominal washout, creation of end ileostomy
Subjective Data
Date of Service: August 21, 2023
Patient states he feels well today. He has no complaints.
Objective Data
-
Vital Signs
Temp Pulse Resp BP Pulse Ox
97.8 F 81 18 113/71 94
08/21/23 07:30 08/21/23 07:30 08/21/23 07:30 08/21/23 09:15 08/21/23 07:30
Intake & Output
08/20/23 08/21/23 08/22/23
06:59 06:59 06:59
Intake Total 900 / 900 1200 / 1200
Output Total 850 / 850 600 / 600
Balance 50 / 50 600 / 600
Intake:
Oral fluids 900 / 900 1200 / 1200
Output:
Liquid stool amount 250 / 250 450 / 450
Ileostomy 250 / 250 450 / 450
Urine, Menjivar 600 / 600
Urine, Voided 150 / 150
Lab Results
08/21/23 05:48
08/21/23 05:48
Physical Exam
-
General: No Acute Distress and AOx3
Abdomen: Soft, Non Distended, Non Tender and Other (Colostomy warm and pink with function)
Skin: Warm and Dry
Incision: Clear, Dry, Intact
--- NOTE | 2023-08-21 13:18 | W.PN.NEPH.PH ---
Addendum entered and electronically signed by Kary Arrington MD 08/21/23 13:52:
BP stable on midodrine cont at d/c
will need to titarte down out pt
hold fibrate
Original Note:
Today's Communication / Plan
-
ok to d/c
Assessment/Plan
-
IMP:
JD (Cr baseline 0.9)
Severe hyperkalemia
HYpotension-shock on pressors
Leucocytosis
Severe A gap met acidosis
Ileus vs enteritis noted on CT
Recent admit for colon perf s/p s/p diagnostic lap with rt hemicolectomy, end ileostomy creation 07/18/23
HTN
GERD
h/o LLE with stent
Plan:
cr better but could be effect of short
no need of HD as he clearly improving cr from yesterday
need to trend cr moving forward
UOP not measured accurately
d/c HD catheter
BMP on Saturday
pt adamant to go home and does not want to stay
nephro f/u
d/w primary
-
-
Date of Service: August 21, 2023
CC / HPI / ROS
-
Chief Complaint:
JD, high k, met acidosis
History of Present Illness:
s/p HD yesterday without issues
Cr down to 1.8 post HD for 2.5hr on 08/20
BP stable
UOP not measured, stool ouput 450cc
Review of Systems:
no cp or sob
feels well
no abd pain
Labs
-
Labs:
WBC 7.9 10^3/uL (4.8-10.8) 08/21/23 05:48
RBC 3.77 10^6/uL (4.70-6.10) L 08/21/23 05:48
Hgb 10.8 g/dL (13.0-18.0) L 08/21/23 05:48
Hct 32.4 % (39.0-52.0) L 08/21/23 05:48
Plt Count 160 10^3/uL (130-400) 08/21/23 05:48
Sodium 136 mmol/L (135-145) 08/21/23 05:48
Potassium 4.0 mmol/L (3.5-5.1) 08/21/23 05:48
Chloride 101 mmol/L (98-107) 08/21/23 05:48
Carbon Dioxide 28 mmol/L (22-30) 08/21/23 05:48
BUN 26 mg/dl (9-20) H 08/21/23 05:48
Creatinine 1.8 mg/dL (0.7-1.3) H 08/21/23 05:48
eGFR 42.03 08/21/23 05:48
Glucose 109 mg/dl (70-99) H 08/21/23 05:48
Calcium 9.5 mg/dl (8.4-10.2) 08/21/23 05:48
Albumin 5.0 g/dl (3.5-5.0) 08/16/23 11:09
Physical Exam
-
Vital Signs:
Vital Signs
Temp Pulse Resp BP Pulse Ox
99.0 F 87 18 117/64 93
08/21/23 11:10 08/21/23 11:10 08/21/23 11:10 08/21/23 12:43 08/21/23 11:10
Cardiovascular:: Regular rate and rhythm
Respiratory:: Bilateral: CTA
Lung Excursion:: Normal
Abdomen:: Nontender and Soft
Extremity Edema:: None: Bilateral:
Menjivar Catheter: No
--- NOTE | 2023-08-21 13:39 | W.PN.HOSP.TC ---
Addendum entered and electronically signed by Zheng Ruano MD 08/21/23 18:09:
[id number]
Addendum entered and electronically signed by Zheng Ruano MD 08/21/23 17:19:
Hypomagnesemia
Original Note:
Today's Communication/Plan
-
bmp on saturday with nephjohnathan, august 22, see outpatient as well
restart plavix
fiber, lomitil for stool output; f/u CRS outpatient
Routine ostomy appliance changes.
Continue Imodium twice a day and daily fiber. Monitor colostomy output. Goal is less than 1000ml a day and greater than 200ml a day.
CBC in 1 week; f/u CRS, GI outpatient
Needs CT chest (Lung Ca Screening) and HST
Sleep clinic visit in 4 weeks ([facility])
F/u Pulmonary outpatient
Assessment / Plan
Assessment / Plan
CT a/p
1. � Post right hemicolectomy and diverting ileostomy. Resolution of previously seen small bowel obstruction. There are air-fluid levels throughout normal caliber small bowel loops, nonspecific but may be seen in association with ileus and enteritis.
2. � Within the right upper quadrant, minimal residual abnormal soft tissue attenuation related to the prior surgery as detailed above. There are no signs of abscess formation. There is no drainable collection. Resolution of previously seen
perihepatic free fluid. Resolution of pneumoperitoneum.
3. � Resolution of previously seen pleural effusions.

#Acute renal failure
-Suspecting volume depletion from high output ileostomy, and Shock resulting in ATN
-COntinue HD
-Hopeful for recovery
-Serum creatinine improving between sessions,
-HD 08/16
�Passed TOV
-Permacath removed
-F/u BMP on saturdayaugust 22 with nephrology
-Patient urinating
-F/u nephro outpatient
#Shock - Resolved
-suspecting hypovolemic, less likely septic
-got 3L IVF bolus, maintain on D5/bicarb @ 100mls/hr after
-weaned off of levophed
-midodrine - can wean outpatient
#Hyperkalemia - Resolved
-driven by acidosis and renal failure
-HD
#AGAP metabolic acidosis -resolved
� � Mild lactic acidosis -resolved
-2/2 to renal failure
# Cecal perf post polypectomy
� � S/p right hemicolectomy ileostomy from on 07/18/23
-Stoma functioning appropriately
-CTAP did not show any structural problems
-CRS evaluated - strict I/O requested - already have 900 ml output - adding lomotil
-F/u CRS outpatient
-Routine ostomy appliance changes.
-Continue Imodium twice a day and daily fiber. Monitor colostomy output. Goal is less than 1000ml a day and greater than 200ml a day.
#Melena
- stable
-Restart plavix
-f/u gi/CRS outpatient
-f/u cbc in 1 week with PCP
#Hyponatremia, mild
-ctm with HD
-resolved
#Suspected JOSE
#LLL nodule per abd CT
-Needs CT chest (Lung Ca Screening) and HST
-Sleep clinic visit in 4 weeks ([facility])
-F/u Pulmonary outpatient
History of peripheral artery disease status post lower extremity stenting
Tobacco use
GERD
Obesity
Hypertriglyceridemia
DVT PPX - heparin subq
Full code
More than 30 minutes spent in discharge including
Final examination of the patient
Summarizing hospital stay
Instructions for continuing care to all relevant caregivers
Preparation of discharge records, prescriptions, and referral forms
Total time spent (35 in minutes):
Anticipated Discharge: Today
Subjective/Interval History
-
Date of Service: August 21, 2023
no acute events, scr trending down
Objective Data
-
Labs:
Laboratory Results
08/21/23
05:48
WBC 7.9
Hgb 10.8 L
Hct 32.4 L
Plt Count 160
Sodium 136
Potassium 4.0
Chloride 101
Carbon Dioxide 28
BUN 26 H
Creatinine 1.8 H
Glucose 109 H
Calcium 9.5
Vital Signs:
Vital Signs
Temp Pulse Resp BP Pulse Ox
99.0 F 87 18 117/64 93
08/21/23 11:10 08/21/23 11:10 08/21/23 11:10 08/21/23 12:43 08/21/23 11:10
I&O
08/20/23 08/21/23 08/22/23
06:59 06:59 06:59
Intake Total 900 / 900 1200 / 1200
Output Total 850 / 850 600 / 600
Balance 50 / 50 600 / 600
Review of Systems
-
Respiratory: Reports No Symptoms
Cardiac: Reports No Symptoms
Abdomen/GI: Reports Bloated; Denies Abdominal Pain, Nausea or Vomiting
Physical Exam
-
General: Comfortable and Obese
HEENT: Normocephalic and Atraumatic; Negative Oxygen
Respiratory: Clear to Auscultation; Negative Wheezes
Cardiac: Regular Rhythm and S1/S2; Negative Murmur
GI: Soft, Nontender, Nondistended and Ostomy (brown)
Genito-urinary: Menjivar (some clean urine)
Neuro: Awake, Alert, Oriented and No Motor Deficits
Psych: Calm
Data Reviewed
-
Diagnostic Radiology: Image personally visualized and interpreted and Report Reviewed by me
CT Scan: Image personally visualized and interpreted and Report Reviewed by me
Ultrasound: Image personally visualized and interpreted and Report Reviewed by me
Labs: Labs Reviewed by me
--- NOTE | 2023-08-21 13:47 | W.DS.TRANS ---
Addendum entered and electronically signed by Zheng Ruano MD 08/21/23 14:05:
holding fenofibrate until cleared by nephrology
Original Note:
DC Summary - [employer]
-
Discharge Instructions:
Discharge Diagnosis/Procedures
#Acute renal failure Requiring HD
Diet 2 Gram Sodium
Activity As tolerated
Blood Work BMP on SaturdayAugust 22 with Nephrology; CBC in
1 week with pcp
Instructions:
Stand-Alone Forms:
Changes to Home Medications: Yes
Discharge Medications:
DC Medications w/original date entered in [place] [facility]
atorvastatin 40 mg tablet 40 mg PO QPM High cholesterol 05/27/20
fenofibrate nanocrystallized 145 mg tablet 145 mg PO QPM High cholesterol 05/27/20
clopidogrel 75 mg tablet 75 mg PO HS Blood clot prevention/tx ##0 11/26/21
loperamide 2 mg capsule 2 mg PO BID 30 days #60 caps 08/21/23
midodrine 5 mg tablet 10 mg PO TID@0800,1300,1800 30 days #180 tabs 08/21/23
pantoprazole 40 mg tablet,delayed release 40 mg PO BID 30 days #60 tabs 08/21/23
psyllium husk (aspartame) 3.4 gram oral powder packet (Metamucil Fiber Singles) 1 packet PO DAILY 30 days #30 ea 08/21/23
simethicone 80 mg chewable tablet 80 mg PO TIDPRN PRN bloating 30 days #60 tabs 08/21/23
Home Medication Changes
midodrine 5 mg tablet 10 mg PO TID@0800,1300,1800 30 days #180 tabs 08/21/23
pantoprazole 40 mg tablet,delayed release 40 mg PO BID 30 days #60 tabs 08/21/23
psyllium husk (aspartame) 3.4 gram oral powder packet (Metamucil Fiber Singles) 1 packet PO DAILY 30 days #30 ea 08/21/23
simethicone 80 mg chewable tablet 80 mg PO TIDPRN PRN bloating 30 days #60 tabs 08/21/23
Pending Results: No
--- NOTE | 2023-08-21 14:16 | VATNOTE ---
Right IJ non tunnelled HD catheter removed per procedure, Direct pressure applied x 5min and occlusive dressing applied. No bleeding noted.
--- NOTE | 2023-08-21 16:02 | VNURNOTE ---
LOYDAVN resumption of care completed in [facility] after review of chart and discussion with patient's on phone.
== END 2023-08-21 16:49 | disposition home health service (06) | DRG 871 ==
LOC: 3 WEST ACU 13:27
PROVIDERS: Physician Assistant; Specialist; ADMITTING PHYSICIAN Hospitalist; ATTENDING PHYSICIAN Internal Medicine; CONSULT PHYSICIAN Internal Medicine; EMERGENCY PHYSICIAN Emergency Medicine; FAMILY PHYSICIAN Nurse Practitioner; OTHER PHYSICIAN Internal Medicine Critical Care Medicine; OTHER PHYSICIAN Surgery
PROC: 5A1D70Z Performance of Urinary Filtration, Intermittent, Less than 6 Hours Per Day (ICD-10-PCS; 2023-08-16)
DX: R57.1 Hypovolemic shock (principal); G92.8 Other toxic encephalopathy; N17.9 Acute kidney failure, unspecified; E87.20 Acidosis, unspecified; R57.9 Shock, unspecified; E87.5 Hyperkalemia; Z93.3 Colostomy status; K21.9 Gastro-esophageal reflux disease without esophagitis; E66.9 Obesity, unspecified; E78.1 Pure hyperglyceridemia
CPT/HCPCS: 36556; 51702; 71045; 74176; 76937; 77001; 80048; 80053; 81003; 81015; 82805; 82962; 83516; 83605; 83735; 84155; 84165; 85025; 85027; 85610; 85730; 86038; 86160; 86704; 86706; 86803; 87040; 87086; 87340; 93005; 94640; 96361; 96365; 96375; 99291; 99292; 99406; C1752; G0257; J2997; J7030; P9047

== ENCOUNTER → 2023-09-16 | Outpatient (REF) | payer OTHER, SELFPAY | LOC: DHSLP | PROVIDERS: ATTENDING PHYSICIAN Internal Medicine Critical Care Medicine; FAMILY PHYSICIAN Nurse Practitioner | DX: G47.30 Sleep apnea, unspecified (principal); R06.83 Snoring | CPT/HCPCS: 95800 ==

== ENCOUNTER 2023-09-27 06:06 | Inpatient (IN) | payer OTHER, SELFPAY ==
[2023-09-23 09:00] VITALS: BMI 37.9
[2023-09-23 10:00] LABS: Hematocrit 40.8 % (39.0-52.0); Hemoglobin 13.5 g/dL (13.0-18.0); Mean Corp Hgb Conc. 33.1 g/dL (33.0-37.0); Mean Corpuscular Hgb 29.1 pg (27.0-31.0); Mean Corpuscular Volume 87.9 fL (80.0-94.0); Platelet Count 295 10^3/uL (130-400); Red Blood Cell Count 4.64 10^6/uL (4.70-6.10); Red Cell Dist. Width 14.6 % (11.5-14.5); White Blood Cell Count 9.7 10^3/uL (4.8-10.8)
[2023-09-23 10:13] LABS: APTT 27.5 Sec (23.4-35.0)
[2023-09-23 10:21] LABS: ALT (SGPT) 19 U/L (0-50); AST (SGOT) 22 U/L (17-59); Alkaline Phosphatase 73 U/L (38-126); Blood Urea Nitrogen 15 mg/dl (9-20); Calcium 10.3 mg/dl (8.4-10.2); Carbon Dioxide 21 mmol/L (22-30); Chloride 110 mmol/L (98-107); Estimated Creatinine Clearance 72 ml/min; Glucose 99 mg/dl (70-99); Potassium 4.6 mmol/L (3.5-5.1); Sodium 138 mmol/L (135-145); Total Bilirubin 0.5 mg/dl (0.2-1.3); Total Protein 6.6 g/dl (6.3-8.2); eGFR > 60.00
[2023-09-23 12:16] LABS: Glycohemoglobin (HgbA1c) 5.7 % (4.0-5.6)
[2023-09-27] VITALS (14 sets, daily range): BP systolic 117–133; BP diastolic 62–87; BMI 37.9
[2023-09-27] MEDS: NORMOSOL-R 1000 IV ×3 (06:30→23:55)
[2023-09-27] MEDS: CELEBREX 200 MG PO (06:34)
[2023-09-27] MEDS: TYLENOL 1000 MG PO ×3 (06:34→23:55)
[2023-09-27] MEDS: HEPARIN 5000 UNITS SC (06:34)
--- NOTE | 2023-09-27 14:10 | W.IMMPOSTOP ---
Surgical Immed Post Op Note
-
Primary Surgeon: Apolinar Hanson MD
Assisting Surgeon: CHRISSY Adan
Pre-op Diagnosis: Cecal perforation, history of ileostomy
Post-op Diagnosis: Cecal perforation, history of ileostomy
Procedure Performed: Robotic ileostomy reversal, lysis of adhesions greater than 4 hours, small bowel resection, mesenteric angiography with ICG, laparoscopic TAP block
Anesthesia Type: General
Specimen / Cultures: Ileostomy, terminal ileum (30 cm)
Estimated Blood Loss: 75 mL
UOP: 215mL
IVF: 2.7L crystalloid
Complications: none
Operative Findings: took down end-ileostomy and used BYRON 80 with purple load to make new staple line proximal to the ileostomy, placed tag in staple line for easy identification; ligated the mesentery with 2-0 vicryl ties; insufflated abdomen and
discovered massive adhesions from the omentum and small bowel to the anterior abdominal wall, but adhesions were thin and filmy; took down adhesions with combination of blunt and sharp dissection; placed 4 robotic ports and assist port and docked
robot; massive amount of adhesions between omentum and small bowel and interloop adhesions; meticulously took down adhesions; small ~1cm tear created in capsule of liver, didn't bleed and was completely hemostatic after monitoring for several
minutes; discovered hard lesion in the omentum that was densely adherent to loop of ileum and anterior abdominal wall; identified a cavity within the hard lesion that drained clear serous fluid; freed up proximal transverse colon end from omentum;
upsized the LUQ port to 12mm and resected 30cm of terminal ileum, using robotic 60mm blue load stapler, to include omental cavity as I was unable to separate this cavity from the bowel wall; injected ICG to confirm ends of bowel were well-perfused;
performed intracorporeal [id number] isoperistaltic anastomosis and closed common defect with 2-0 v-lock; abdomen examined; small ooze from terminal ileum staple line controlled with 2-0 vicryl figure-of-8; remainder of operative field hemostatic;
closed LUQ
with tatum and figure-of-8 0-vicryl; cleaned up fasical edges and closed ileostomy with #1 PDS in figure-of-8 fashion on fascia and pursestring in the deep dermal level using 2-0 vicry, packed ileostomy cavity with iodoform; closed port
sites with subcuticular 4-0 monocryl; left corbett
[2023-09-27 14:26] LABS: Glucose - Point of Care 122 mg/dl (70-99)
--- NOTE | 2023-09-27 16:18 | PTCARENOTE ---
Patient admitted from [facility] post robotic ileostomy closure with small bowel resection and lysis of adhesions.The patient states that his pain is just a 'discomfort'.The 3 laparoscopic sites are clean and dry with no drainage.The old ileostomy site is
intact with a dry gauze dressing with scant drainage.Vital signs are stable.The patient is in his bed with the call davila in reach.
[2023-09-27] MEDS: LIPITOR 40 MG PO (21:04)
[2023-09-27] MEDS: PROTONIX 40 MG PO (21:04)
[2023-09-27] MEDS: TRICOR 145 MG PO (21:04)
[2023-09-28 03:00] VITALS: BP 131/75
[2023-09-28] MEDS: TYLENOL 1000 MG PO ×3 (05:46→17:49)
[2023-09-28 06:00] VITALS: BMI 38.0
[2023-09-28 07:04] VITALS: BP 101/80
[2023-09-28 07:10] LABS: % Basophils 0.2 % (0-2); % Immature Granulocytes 0.5 % (0-0.5); % Lymphocytes 12.8 % (20.5-51.1); % Monocytes 8.1 % (1.7-9.3); % Neutrophils 78.4 % (42.2-75.2); Absolute Immature Granulocytes 0.1 10^3/uL (0-0.05); Absolute Lymphocytes 1.7 10^3/uL (1.2-3.4); Absolute Monocytes 1.1 10^3/uL (0.1-0.6); Absolute Neutrophils 10.3 10^3/uL (1.4-6.5); Hemoglobin 11.9 g/dL (13.0-18.0); Mean Corp Hgb Conc. 32.2 g/dL (33.0-37.0); Mean Corpuscular Hgb 28.8 pg (27.0-31.0); Mean Corpuscular Volume 89.6 fL (80.0-94.0); Mean Platelet Volume 12.2 fL (7.4-10.4); Nucleated Red Blood Cells % 0 % (-); Platelet Count 263 10^3/uL (130-400); Red Blood Cell Count 4.13 10^6/uL (4.70-6.10); Red Cell Dist. Width 14.6 % (11.5-14.5); White Blood Cell Count 13.1 10^3/uL (4.8-10.8)
[2023-09-28 07:41] LABS: Blood Urea Nitrogen 18 mg/dl (9-20); Calcium 8.7 mg/dl (8.4-10.2); Carbon Dioxide 24 mmol/L (22-30); Chloride 104 mmol/L (98-107); Estimated Creatinine Clearance 78 ml/min; Glucose 90 mg/dl (70-99); Potassium 4.1 mmol/L (3.5-5.1); Sodium 136 mmol/L (135-145); eGFR > 60.00
--- NOTE | 2023-09-28 09:55 | W.PN.GS2 ---
Addendum entered and electronically signed by Mark Ba MD 09/28/23 10:06:
Patient seen and examined with nurse practitioner. Agree with documented progress note.
Patient doing well, reports mild postoperative incisional pain.
No nausea, no vomiting, does not feel distended.
AF VSS
ABD: Soft, obese, nondistended, minimal tenderness. Surgical sites with glue dressings. Right sided old ileostomy site clean, new dressing placed
A/P: POD #1 status post RAL reversal end ileostomy with [place]
Clear liquid diet, IV fluids, routine postoperative care
Original Note:
Today's Communication / Plan
-
Start clear liquids
OOB/Ambulate
Assessment / Plan
-
63 yo male with h/o cecal perforation and ileostomy creation now POD #1 robotic reversal with [place]
AFVSS
Mild acute post operative anemia secondary to expected losses and hemodilution
Mild reactive leukocytosis
Cr stable post op
Await bowel recovery
--Start CLD
--Hold NSAIDs given baseline cr elevations and h/o JD requiring HD
--Menjivar today, remove in am
--Dressing changes daily and prn
--c/w IVF
--Lovenox 40mg sq for VTE ppx/SCD's while in bed
Subjective Data
-
Date of Service: September 28, 2023
Patient seen and examined at bedside with Dr. Ba. Denies n/v. No flatus as of yet. Denies significant pain.
Objective Data
-
Intake and Output
09/27/23 09/28/23 09/29/23
06:59 06:59 06:59
Intake Total 1460 / 1460
Output Total 965 / 965
Balance 495 / 495
Intake:
Oral fluids 60 / 60
IV fluids (Total) 1400 / 1400
Normosol 200 / 200
Output:
Urine, Menjivar 965 / 965
Vital Signs
Temp Pulse Resp BP Pulse Ox
98.4 F 77 19 101/80 97
09/28/23 07:04 09/28/23 07:04 09/28/23 07:04 09/28/23 07:04 09/28/23 07:04
Lab Results
09/28/23 05:51
09/28/23 05:51
Calcium 8.7 mg/dl (8.4-10.2) 09/28/23 05:51
Total Bilirubin 0.5 mg/dl (0.2-1.3) 09/23/23 08:51
AST 22 U/L (17-59) 09/23/23 08:51
ALT 19 U/L (0-50) 09/23/23 08:51
Alkaline Phosphatase 73 U/L (38-126) 09/23/23 08:51
Total Protein 6.6 g/dl (6.3-8.2) 09/23/23 08:51
Albumin 4.0 g/dl (3.5-5.0) 09/23/23 08:51
Physical Exam
-
NAD, Ox3
ABD soft, ND, minimal incisional tenderness
Lap incisions intact glue, no erythema. Prior stoma site with SS drainage, dressing changed
--- NOTE | 2023-09-28 09:56 | CM ---
Reviewed chart, met with patient to obtain information for assessment. Patient stated that he lives with his in a one story home with one step to enter. He has been independent with his ADLs, personal care, dressing, bathing and toileting. He
ambulates independently without device.
Patient has a first floor set up. Bedroom, bathroom and kitchen are all on one floor.
His assists with crime analyst, cooking, cleaning and laundry. She drives patient to his appointments and does all of the shopping.
Patient has a prescription plan and uses [facility] in [place] for all of his medications.
He has a PCP, Timi Arriaga.
Patient feels that he will be able to return home when stable medically.
In past he had [facility]. IF Rn needed at home for wound check he would use [facility] again.
Plan: Case management will continue to follow and assist with discharge planning. Patient would like to return home when stable.
[2023-09-28] MEDS: NORMOSOL-R 1000 IV ×2 (09:58→21:21)
[2023-09-28] MEDS: ENTEREG 12 MG PO ×2 (10:01→20:03)
[2023-09-28 11:26] VITALS: BP 139/71
[2023-09-28 15:35] VITALS: BP 137/73
[2023-09-28] MEDS: LOVENOX 40 MG SC (17:49)
[2023-09-28] MEDS: LIPITOR 40 MG PO (21:20)
[2023-09-28] MEDS: TRICOR 145 MG PO (21:20)
[2023-09-28] MEDS: PROTONIX 40 MG PO (21:20)
[2023-09-28 23:00] VITALS: BP 145/81
[2023-09-29] MEDS: TYLENOL 1000 MG PO ×4 (00:04→23:24)
[2023-09-29 06:00] VITALS: BMI 38.4
[2023-09-29 07:04] VITALS: BP 131/80
[2023-09-29 07:31] LABS: Hematocrit 36.8 % (39.0-52.0); Hemoglobin 11.7 g/dL (13.0-18.0); Mean Corp Hgb Conc. 31.8 g/dL (33.0-37.0); Mean Corpuscular Hgb 28.9 pg (27.0-31.0); Mean Corpuscular Volume 90.9 fL (80.0-94.0); Mean Platelet Volume 12.2 fL (7.4-10.4); Platelet Count 252 10^3/uL (130-400); Red Blood Cell Count 4.05 10^6/uL (4.70-6.10); Red Cell Dist. Width 14.6 % (11.5-14.5); White Blood Cell Count 10.5 10^3/uL (4.8-10.8)
[2023-09-29] MEDS: ENTEREG 12 MG PO ×2 (07:57→20:21)
[2023-09-29 08:08] LABS: Blood Urea Nitrogen 12 mg/dl (9-20); Calcium 8.9 mg/dl (8.4-10.2); Carbon Dioxide 25 mmol/L (22-30); Chloride 103 mmol/L (98-107); Estimated Creatinine Clearance 105 ml/min; Glucose 88 mg/dl (70-99); Potassium 3.8 mmol/L (3.5-5.1); Sodium 136 mmol/L (135-145); eGFR > 60.00
--- NOTE | 2023-09-29 11:09 | W.PN.GS2 ---
Addendum entered and electronically signed by Mark aB MD 09/29/23 13:27:
Patient seen and examined with nurse practitioner. Agree with documented progress note.
Tolerating clear liquids. Some belching but no nausea. Small loose bowel movement, flatus.
AFVSS
ABD: Soft, obese, nondistended, incisional tenderness
WBC normal today. Chemistries unremarkable
Assessment/plan: POD #2 status post RAL reversal end ileostomy with lysis of adhesions
Doing well postop
Reduce IV fluids
Full liquid diet
Menjivar out this a.m. -voiding
Original Note:
Today's Communication / Plan
-
Full liquid diet
OOB/Ambulate
Assessment / Plan
-
63 yo male with h/o cecal perforation and ileostomy creation now POD #2 robotic reversal with joey
AFVSS
Mild acute post operative anemia secondary to expected losses and hemodilution, h/h stable with no active bleeding
Mild reactive leukocytosis
Cr stable post op, now returned to normal
Passed small BM, but with belching
--Start FLD
--Hold NSAIDs given baseline cr elevations and h/o JD requiring HD
--Menjivar out, voiding
--Dressing changes daily and prn
--c/w gentle IVF
--Lovenox 40mg sq for VTE ppx/SCD's while in bed
Subjective Data
-
Date of Service: September 29, 2023
Patient seen and examined at bedside with Dr. Ba. Denies n/v. Tolerating clears but with some belching. Had small BM with some flatus. Voiding well.
Objective Data
-
Intake and Output
09/28/23 09/29/23 09/30/23
06:59 06:59 06:59
Intake Total 1460 / 1460 1560 / 1560 480 / 480
Output Total 965 / 965 250 / 250 600 / 600
Balance 495 / 495 1310 / 1310 -120 / -120
Intake:
Oral fluids 60 / 60 960 / 960 480 / 480
IV fluids (Total) 1400 / 1400 600 / 600
Normosol 200 / 200
Output:
Urine, Menjivar 965 / 965 250 / 250 600 / 600
Vital Signs
Temp Pulse Resp BP Pulse Ox
98.2 F 78 18 131/80 95
09/29/23 07:04 09/29/23 07:04 09/29/23 07:04 09/29/23 07:04 09/29/23 07:04
Lab Results
09/29/23 06:18
09/29/23 06:18
Calcium 8.9 mg/dl (8.4-10.2) 09/29/23 06:18
Total Bilirubin 0.5 mg/dl (0.2-1.3) 09/23/23 08:51
AST 22 U/L (17-59) 09/23/23 08:51
ALT 19 U/L (0-50) 09/23/23 08:51
Alkaline Phosphatase 73 U/L (38-126) 09/23/23 08:51
Total Protein 6.6 g/dl (6.3-8.2) 09/23/23 08:51
Albumin 4.0 g/dl (3.5-5.0) 09/23/23 08:51
Physical Exam
-
NAD, Ox3
ABD soft, mild distention, minimal incisional tenderness
Lap incisions intact glue, no erythema. Prior stoma site with SS drainage
[2023-09-29] MEDS: NORMOSOL-R 1000 IV (12:14)
[2023-09-29] MEDS: TYLENOL PO (12:15)
[2023-09-29 15:32] VITALS: BP 138/85
[2023-09-29] MEDS: LOVENOX 40 MG SC (17:16)
[2023-09-29] MEDS: TRICOR 145 MG PO (22:51)
[2023-09-29] MEDS: LIPITOR 40 MG PO (22:52)
[2023-09-29] MEDS: PROTONIX 40 MG PO (22:52)
[2023-09-29 23:48] VITALS: BP 153/87
[2023-09-30] MEDS: NORMOSOL-R 1000 IV ×2 (00:57→11:49)
[2023-09-30] MEDS: TYLENOL 1000 MG PO (05:44)
[2023-09-30 07:25] VITALS: BP 136/77
[2023-09-30] MEDS: ENTEREG 12 MG PO (07:45)
--- NOTE | 2023-09-30 11:12 | W.PN.CRS1 ---
Today's Communication / Plan
-
okay for discharge later today
Assessment/Plan
-
Assessment: 63-year-old man with a PMH of GERD, hypertension, hyperlipidemia and PVD s/p LLE stent and recent admission 07/18/2023 to 07/27/2023 for cecal perforation and JD requiring urgent ex lap, right hemicolectomy with end ileostomy who presents
with anorexia for 4 days associated with dry heaving, more liquid ostomy output (but states it did not increase in output), and vomiting since last night as well as blurred vision this morning.� Over the last 1 to 2 days, he noticed a decrease in
his urination as well. His BP was 80/60 and HR 108. These improved after fluid, he received 3L in the ED. WBC was 16.9, Cr 14, BUN 108, K 7.3, UA concerning for UTI (+nitrate, 2+ LE, wbc 11-15), CT showing post-operative changes. He was admitted to
the ICU and started on hemodialysis.
Plan:
1.� Vitals normal.�
2.� Voiding without difficulty.
3.� Tolerating fulls, advance to regular.
4. Dressing changed at bedside.
5. Lovenox 40mg sq for VTE ppx/SCD's while in bed.
6. Okay for discharge today. Discharge instructions discussed with patient. All questions answered.
Subjective Data
Subjective Data
Date of Service: September 30, 2023
Patient states he feels well. He has no complaints. His pain is controlled. He has no nausea or vomiting. He is having loose stools. He denies blood in his stool.
Objective Data
-
Vital Signs
Temp Pulse Resp BP Pulse Ox
97.7 F 73 19 136/77 94
09/30/23 07:25 09/30/23 07:25 09/30/23 07:25 09/30/23 07:25 09/30/23 07:25
Intake & Output
09/29/23 09/30/23 10/01/23
06:59 06:59 06:59
Intake Total 1560 / 1560 1680 / 1680
Output Total 250 / 250 600 / 600
Balance 1310 / 1310 1080 / 1080
Intake:
Oral fluids 960 / 960 1680 / 1680
IV fluids (Total) 600 / 600
Output:
Urine, Menjivar 250 / 250 600 / 600
Other:
Number of approximated MODERATE 2
amounts of urine
Lab Results
09/29/23 06:18
09/29/23 06:18
Physical Exam
-
General: No Acute Distress and AOx3
Abdomen: Soft, Non Distended and Non Tender
Wound: Dressing Changed
Incision: Clear, Dry, Intact
[2023-09-30] MEDS: TYLENOL PO (11:49)
[2023-09-30 11:52] VITALS: BP 136/78
--- NOTE | 2023-09-30 13:27 | W.DS.TRANS ---
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
-
Discharge Instructions:
Discharge Diagnosis/Procedures Robotic ileostomy reversal, lysis of adhesions
greater than 4 hours, small bowel resection,
mesenteric angiography with ICG, laparoscopic
TAP block
Diet Regular
Activity No strenuous activity
Additional Activity No lifting over 10lbs (gallon of milk)
Driving Restrictions No driving if using narcotics.
Bathing Restrictions OK to Shower
Wound Care Cover incision site with 4x4 gauze and tape.
Change daily. Okay to uncover to shower.
Instructions:
Stand-Alone Forms:
Changes to Home Medications: Yes
Discharge Medications:
DC Medications w/original date entered in [employer]
atorvastatin 40 mg tablet 40 mg PO HS High cholesterol 05/27/20
fenofibrate nanocrystallized 145 mg tablet 145 mg PO HS High cholesterol 05/27/20
clopidogrel 75 mg tablet 75 mg PO HS Blood clot prevention/tx ##0 11/26/21
pantoprazole 40 mg tablet,delayed release 40 mg PO HS Gastrointestinal Issue 09/23/23
Home Medication Changes
Stop:
Fiber supplements until approved by Dr. Hanson
Midodrine
Pending Results: Yes
Additional Pending Results:
OR pathology
--- NOTE | 2023-09-30 14:15 | CM ---
Patient has been medically cleared for discharge to home with no additional skilled needs. Nursing to educate on wound care. will transport home.
--- NOTE | 2023-10-02 11:12 | W.DCSUMMARY ---
Discharge Summary
Discharge Data
Date of Admission: 09/27/23
Date of Discharge: 09/30/23
-
Pending Results: Yes
Additional Pending Results:
Pathology
Hospital Course
63-year-old male presented for a scheduled robotic ileostomy reversal, lysis of adhesions and small bowel resection performed by Dr. Apolinar Hanson on 09/27/2023. The patient was brought back to the medical surgical floor postoperatively. The
following day he was out of bed, Lovenox started for DVT prophylaxis, and he was started on clear liquid diet. His diet was eventually advanced to a regular diet. On postop day 3 he was tolerating his diet and had bowel function. He voided
without difficulty. He was determined the patient could be discharged home with discharge instructions were discussed with the patient and his , including medications activity levels and follow-up. All questions were answered. OR pathology
was pending at the time of discharge.
Discharge Plan
-
Patient Disposition: Home (Routine Discharge)
Discharge Diagnosis/Procedures: Robotic ileostomy reversal, lysis of adhesions greater than 4 hours, small bowel resection, mesenteric angiography with ICG, laparoscopic TAP block
Diet: Regular
Activity: No strenuous activity
Additional Activity: No lifting over 10lbs (gallon of milk)
Driving Restrictions: No driving if using narcotics.
Bathing Restrictions: OK to Shower
Wound Care: Cover incision site with 4x4 gauze and tape. Change daily. Okay to uncover to shower.
Referrals:
Lissy Arriaga CRNP [Family Provider] -
Apolinar Hanson MD [Active] - in two weeks
Additional Discharge Medication Instructions: Tylenol as needed for pain. Maximum amount of Tylenol per day is 4,000mg. Hold fiber until seen in the office with Dr. Hanson.
Prescriptions:
Continued
atorvastatin 40 MG tablet
40 mg PO HS
fenofibrate nanocrystallized 145 MG tablet
145 mg PO HS
Hold Instructions: Resume on 09/04/23. once cleared by nephrology
clopidogrel 75 MG tablet
75 mg PO HS Qty: 0 0RF
pantoprazole 40 mg tablet,delayed release (DR/EC)
40 mg PO HS
Discontinued
Metamucil Fiber Singles 3.4 gram Powder In Packet
1 packet PO DAILY 30 Days Qty: 30 0RF
metronidazole 500 mg Tablet
500 mg PO PRE OP
Patient Comments:
took at 1400,1500 and 2200 09/26/23
neomycin 500 mg Tablet
500 mg PO PRE OP
Patient Comments:
took at 1400,1500, and 2200 on 09/26/23
Sutab 1.479-0.188- 0.225 gram Tablet
0 tab PO PRE OP
midodrine 5 mg tablet
10 mg PO DAILY
Discharge Orders:
Discharge Patient (As Directed); Ordered 09/30/23
Ordered By: Maddie Bhagat
Discharge Date and Time
Discharge Date/Time: 09/30/23 15:33
Print Language: UZBEK
== END 2023-09-30 15:33 | disposition home or self-care (01) | DRG 337 ==
LOC: 2 SOUTH 06:06
PROVIDERS: Registered Nurse; ADMITTING PHYSICIAN Surgery; FAMILY PHYSICIAN Nurse Practitioner
PROC: 0DNB4ZZ Release Ileum, Percutaneous Endoscopic Approach (ICD-10-PCS; 2023-09-27)
PROC: 0DNU4ZZ Release Omentum, Percutaneous Endoscopic Approach (ICD-10-PCS; 2023-09-27)
PROC: 8E0W4CZ Robotic Assisted Procedure of Trunk Region, Percutaneous Endoscopic Approach (ICD-10-PCS; 2023-09-27)
PROC: B415YZZ Fluoroscopy of Inferior Mesenteric Artery using Other Contrast (ICD-10-PCS; 2023-09-27)
PROC: 0DBB4ZZ Excision of Ileum, Percutaneous Endoscopic Approach (ICD-10-PCS; 2023-09-27)
DX: Z43.2 Encounter for attention to ileostomy (principal); K66.0 Peritoneal adhesions (postprocedural) (postinfection); I10 Essential (primary) hypertension; K21.9 Gastro-esophageal reflux disease without esophagitis; E78.5 Hyperlipidemia, unspecified
CPT/HCPCS: 88304; 88307; 36415; 71046; 80048; 80053; 82962; 83036; 85025; 85027; 85610; 85730; 86850; 86900; 86901; 93005; 97162

== ENCOUNTER → 2023-12-13 12:23 | Outpatient (REF) | payer OTHER, SELFPAY | LOC: RAD 12:23 | PROVIDERS: ATTENDING PHYSICIAN Internal Medicine Critical Care Medicine; FAMILY PHYSICIAN Nurse Practitioner | DX: R91.1 Solitary pulmonary nodule (principal) | CPT/HCPCS: 71250 ==

== ENCOUNTER 2024-08-18 06:19 | Day surgery (SDC) | payer OTHER, SELFPAY | END 2024-08-18 09:48 | disposition home or self-care (01) | LOC: GI 06:19 | PROVIDERS: ATTENDING PHYSICIAN Surgery | DX: Z12.11 Encounter for screening for malignant neoplasm of colon (principal); K57.30 Diverticulosis of large intestine without perforation or abscess without bleeding; K63.5 Polyp of colon; Z98.0 Intestinal bypass and anastomosis status; Z86.0100 Personal history of colon polyps, unspecified | CPT/HCPCS: 45385; 88305 ==

== ENCOUNTER → 2025-01-22 07:53 | Outpatient (REF) | payer OTHER, SELFPAY | LOC: RAD 07:53 | PROVIDERS: ATTENDING PHYSICIAN Physician Assistant; FAMILY PHYSICIAN Nurse Practitioner | DX: I73.9 Peripheral vascular disease, unspecified (principal) | CPT/HCPCS: 93922; 93925 ==

== ENCOUNTER → 2025-02-11 09:21 | Outpatient (REF) | payer OTHER, SELFPAY | LOC: DHVS 09:21 | PROVIDERS: ATTENDING PHYSICIAN Surgery Vascular Surgery; FAMILY PHYSICIAN Nurse Practitioner | DX: I72.4 Aneurysm of artery of lower extremity (principal); Z01.818 Encounter for other preprocedural examination | CPT/HCPCS: 75635; 93970; Q9967 ==

== ENCOUNTER → 2025-03-30 13:37 | Outpatient (REF) | payer OTHER, SELFPAY ==
--- NOTE | 2025-03-30 15:19 | CARDSERVLU ---
Echocardiogram with Lumason completed after protocol screening completed. Allergies verified.
Patent IV site: __22P second attempt LAC, first attempt RAC unable to cannulate___
IV site flushed with 0.9% NaCl pre and post administration.
Diluted bolus method utilized to enhance visualization of ventricular cisse.
Total volume given: __4.0__ mL under direction echosonographer
site dcd at completion of test.
Patient tolerated all procedures well without complications.
== END ==
LOC: RCS 13:37
PROVIDERS: ATTENDING PHYSICIAN Internal Medicine Cardiovascular Disease; FAMILY PHYSICIAN Nurse Practitioner
DX: R01.1 Cardiac murmur, unspecified (principal)
CPT/HCPCS: 93306; Q9950

== ENCOUNTER 2025-04-12 09:52 | Inpatient (IN) | payer OTHER, SELFPAY ==
[2025-03-29 09:49] LABS: Hematocrit 46.7 % (39.0-52.0); Hemoglobin 15.2 g/dL (13.0-18.0); Mean Corp Hgb Conc. 32.5 g/dL (33.0-37.0); Mean Corpuscular Volume 93.4 fL (80.0-94.0); Nucleated Red Blood Cells % 0 % (-); Platelet Count 218 10^3/uL (130-400); Red Cell Dist. Width 13.5 % (11.5-14.5)
[2025-03-29 10:00] LABS: INR 0.91; PT 12.6 Sec (11.4-14.6)
[2025-03-29 10:01] LABS: APTT 26.0 Sec (23.4-35.0)
[2025-03-29 10:32] LABS: Blood Urea Nitrogen 19 mg/dl (9-20); Calcium 9.6 mg/dl (8.4-10.2); Carbon Dioxide 26 mmol/L (22-30); Chloride 108 mmol/L (98-107); Glucose 113 mg/dl (70-99); Potassium 4.6 mmol/L (3.5-5.1); Sodium 139 mmol/L (135-145); eGFR > 60.00
[2025-03-29 13:49] VITALS: BMI 40.6
[2025-04-12] VITALS (10 sets, daily range): BP systolic 0–165; BP diastolic 60–90
[2025-04-12] MEDS: BACTROBAN NASAL 1 GRAM NASAL (10:07)
[2025-04-12] MEDS: PERIDEX 0.12% ORAL RINSE 15 ML PO (10:07)
[2025-04-12] MEDS: NSS 500 IV (10:08)
--- NOTE | 2025-04-12 11:02 | W.SUR.PREOP ---
Pre-Operative Surgical Note
-
I have examined this patient prior to the performance of the scheduled procedure.
The patient's condition is unchanged from the time of the current History and
Physical and the patient is able to undergo the scheduled procedure.
[2025-04-12 14:43] LABS: ACT-LR - POC 290 Seconds (116-155)
--- NOTE | 2025-04-12 16:16 | OR.RPT ---
Operative Report
Operative Report
Date of Operation: 04/12/2025
Pre Op Diagnosis: Right popliteal artery aneurysm
Post Op Diagnosis: Right popliteal artery aneurysm
Procedure:
1. Right proximal superficial femoral artery to below-knee popliteal artery bypass with ipsilateral reversed great saphenous vein
2. Ligation and exclusion of right popliteal artery aneurysm
Surgeon: Gabriel Menjivar III, MD
Automotive Sales Associate: Kenia Madrid MD PGY2
Anesthesia: General
Complications: None
Estimated Blood Loss: 50 cc
History and Indications for Procedure: 64-year-old male with popliteal artery aneurysm
Procedure in Detail: Tristen Montenegro was correctly identified and placed supine on the operating table. After adequate induction of anesthesia the right great saphenous vein was imaged with ultrasound and marked. The abdomen, pelvis, groin and right
lower extremity circumferentially were then positioned, prepped and draped in the usual sterile fashion. Preoperative antibiotics were administered. A time out procedure was performed with the nursing and anesthesia staff confirming the patients
identity as well as the nature and laterality of the procedure.
An incision was made from the groin to the knee over the right great saphenous vein jory. The vein was harvested along this entire course. All branches were ligated and divided between ties and clips. The vein appeared to be of adequate caliber and
quality to be used as a bypass conduit. Through the proximal aspect of the same incision in the thigh the dissection was carried deeper and the superficial femoral artery was exposed. Proximal and distal control was obtained with vessel loops.
The below-knee popliteal artery was chosen as the distal target and was sharply exposed through a proximal calf incision. Proximal and distal control was obtained with vessel loops.
A tunnel was then created between the distal target exposure and the femoral vessels. The distal end of the vein was ligated with a silk tie. The distal end of the vein was transected and then the vein was dilated with heparinized saline. All branch
points were closely inspected. The vein was marked for proper orientation. A clamp was placed at the sapheno-femoral junction and the proximal end of the vein was transected. The SFJ stump was ligated with a silk suture ligature.
The vein was reversed and carefully brought through the tunnel, taking great care to keep proper orientation.
The patient was systemically heparinized.
The proximal and distal vessel loops on the superficial femoral artery were secured. An arteriotomy was made in the superficial femoral artery and extended proximally and distally with Woodard scissors. The proximal end of the vein was spatulated and
an end-to-side anastomosis was created with a running 5-0 Prolene suture. The anastomosis was completed and the vessel loops were released. There was excellent pulsatile bleeding from the distal end of the vein conduit. The proximal suture line was
inspected for hemostasis and was achieved. A bulldog clamp was placed on the proximal end of the vein just off of the anastomosis.
The below the knee popliteal artery proximal and distal vessel loops were secured. The vein was temporarily pressurized and shortened appropriately. An arteriotomy was made in the below-knee popliteal artery and extended proximally and distally with
Woodard scissors. The proximal and distal artery was flushed with heparinized saline. The end of the vein conduit was spatulated and an end-to-side anastomosis created with a running 6-0 Prolene suture. Prior to the completion of the anastomosis the
proximal bulldog clamp was temporarily released and the vein flushed. The area under the anastomosis was irrigated with heparinized saline and the anastomosis completed. The proximal bulldog and then the vessel loops on the popliteal artery were
released. Immediately there was a pulse in the vein conduit and the distal popliteal artery beyond the distal anastomsis. The suture lines were both inspected and hemostasis achieved.
0 silk ties were placed on the superficial femoral artery distal to the proximal anastomosis and on the below the knee popliteal artery proximal to the distal anastomosis to ligate and exclude the popliteal artery aneurysm.
Protamine was administered. Hemostasis was achieved in the wound beds. The suture lines were closely inspected and were hemostatic. 2 #10 ZARI drains were left in the saphenectomy bed in the thigh. The wounds were irrigated with warm saline
solution. The wounds were closed in layers. Sterile dressings were applied.
At the conclusion of the case the patient had easily palpable DP and PT pulses in the right foot.
The patient tolerated the procedure well and was taken to the PACU in stable condition.
Attestation: I was present and responsible for the entire procedure
Signed:
Gabriel Menjivar III, MD
Vascular Surgery
[facility]
[2025-04-12] MEDS: DILAUDID 0.5 MG IV (16:45)
--- NOTE | 2025-04-12 16:57 | CON.INTV ---
Consultation
Consultation Request
Date/Time Consultation Requested: 04/12/2025 - 1615
Date/Time Consultation Performed: 04/12/2025 - 1643
Requesting Provider: DANIEL Pugh
Performing Provider: Dr. Ellis
Reason for Consultation: Right lower extremity bypass with pop A. aneurysm ligation + exclusion
Medical History
-
Chief Complaint: Elective right lower extremity bypass + popliteal artery ligation/exclusion
History of Present Illness:
64-year-old male active tobacco smoker with a past medical history of bilateral popliteal artery aneurysm, PAD, GERD, history of duodenal ulcer, hypertension, hypercholesterolemia, and history of DVT who presents for elective right lower extremity
vascular bypass. Patient known to vascular surgery, with last visit on 02/[address] Menjivar. He has right popliteal artery aneurysm has increased in size and he has high-grade stenosis at the distal aspect due to a mural thrombus within the
aneurysm and calcified plaque. Bypass with exclusion of the aneurysm recommended. Today, patient underwent right proximal superficial femoral artery to below�knee popliteal artery bypass with ipsilateral reversed great saphenous vein, and ligation
and exclusion of right popliteal artery aneurysm. There were no complications, EBL was 50 cc. Patient transferred to the ICU postoperatively, and [employer] Expert services consulted for additional management/recommendations.
PMHx: Bilateral popliteal artery aneurysm, PAD, GERD, hypertension, mixed hyperlipidemia, history of duodenal ulcer, tobacco use disorder, history of DVT
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
Past Medical History
Past Medical History: Other (Above as per HPI)
Past Surgical History: Other (Above as per HPI)
Social History
Tobacco: Smoker ([id number] history, smokes few cigarettes while drinking)
Alcohol: Occasional (Social)
Drug: Marijuana
Family History
Family History: CAD (Father ( from complications during cardiac surgery)) and Cancer (Mother + sister: Ovarian cancer)
Allergies / Home Medications
Allergies
Allergy/AdvReac Type Severity Reaction Status Date / Time
No Known Allergies Allergy Verified 03/25/25 08:47
Home Medications
�Medication �Instructions �Recorded �Confirmed �Last Taken �Type
atorvastatin 40 mg tablet 40 mg PO HS High cholesterol 05/27/20 04/12/25 04/11/25 22:00 History
fenofibrate nanocrystallized 145 145 mg PO DAILY High cholesterol 05/27/20 04/12/25 04/11/25 22:00 History
mg tablet
clopidogrel 75 mg tablet 75 mg PO HS Blood clot 11/26/21 04/12/25 04/11/25 22:00 Rx
prevention/tx ##0
pantoprazole 40 mg tablet,delayed 40 mg PO HS Gastrointestinal Issue 09/23/23 04/12/25 04/11/25 22:00 History
release
Cannabis 1 dose inhalation PRN PRN Anxiety 03/25/25 04/12/25 04/11/25 22:00 History
lisinopril 10 mg tablet 10 mg PO HS 03/25/25 04/12/25 04/11/25 22:00 History
amoxicillin-pot clavulanate 1 tab PO BID 04/12/25 04/12/25 04/11/25 22:00 History
Review of Systems
-
Unable to Obtain full review of systems at this time due to: Acuity (lethargic from OR)
Vitals / Labs / Diagnostic Testing
Vital Signs
Temp Pulse Resp BP Pulse Ox
97.6 F 61 20 165/73 99
04/12/25 17:30 04/12/25 17:15 04/12/25 17:15 04/12/25 17:15 04/12/25 17:15
Lab Data
04/12/25 16:40
04/12/25 16:40
Diagnostic Testing:
Physical Exam
-
HEENT: Normocephalic and Anicteric
Cardiovascular: S1/S2 and Peripheral Edema (negative)
Respiratory: Wheeze (negative), Rales (negative) and Rhonchi (negative)
GI: Soft, Non Distended, Tender and Normal Bowel Sounds
Neurology: Tremors (negative) and Other (Lethargic although arousable to verbal stimulation and answers questions appropriately)
Skin: Warm and Dry
General: Respiratory Distress (negative), Comfortable, Fever (negative), Chills (negative) and Sweats (negative)
Assessment
-
Assessment: 64-year-old male active tobacco smoker with a past medical history of bilateral popliteal artery aneurysm, PAD, GERD, history of duodenal ulcer, hypertension, hypercholesterolemia, and history of DVT who presents for elective right
lower extremity vascular bypass. Patient known to vascular surgery, with last visit on 02/[address] Menjivar. He has right popliteal artery aneurysm has increased in size and he has high-grade stenosis at the distal aspect due to a mural thrombus
within the aneurysm and calcified plaque. Bypass with exclusion of the aneurysm recommended. On 04/12/2025, patient underwent right proximal superficial femoral artery to below�knee popliteal artery bypass with ipsilateral reversed great saphenous
vein, and ligation and exclusion of right popliteal artery aneurysm. There were no complications, EBL was 50 cc. Patient transferred to the ICU postoperatively, and Tariff Expert services consulted for additional management/recommendations.
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
Impression:
#Right popliteal artery aneurysm s/p right proximal superficial femoral artery to below�knee popliteal artery bypass with ipsilateral reversed great saphenous vein, and ligation and exclusion of right popliteal artery aneurysm (POD #0)
#Leukocytosis � likely reactive in setting of above
#Chest wall abscess with culture collected 04/01/2025 growing Gleimia europaea with scant growth of Actinobaculum schaalii
#Right upper lobe 4 mm nodule (new) via PET-myocardial scan on 04/06/2025
#Hx of cecal perforation s/p colonoscopy on 07/16/2023 with cecal polypectomy with mucosal resection s/p APC, hot biopsy forceps and clipping s/p ex-lap with right hemicolectomy with washout and end-ileostomy creation
Plan:
Postoperative surgical intensive care unit monitoring
Supplemental oxygen as needed to maintain SpO2 >90-94%
prn nebulized bronchodilators
Incentive spirometry encouraged 10x per hour for at least 4 hrs a day
Aspiration precautions
Pain control
Neuro and vascular checks per protocol
Maintain MAP>65
Replete electrolytes with K>4, Mg>2
Maintain euglycemia with goal BG 140-180; HbA1c: 5.7 on 12/17/2024
Vascular surgery following-correspondence and operative notes reviewed
Transfuse blood products as needed to keep Hb>7g/dL, and plt>50k (given post-operative status)
Outpatient pulmonary office follow-up will be arranged due to small right upper lobe nodule seen on PET, myocardial perfusion imaging study; it appears that this may be an intrapulmonary lymph node - -> recommend repeat CT Chest in approx 3 months
time to assess stability
Can offer nicotine patch if patient interested, although it seems that he cut down significantly on his overall cigarette usage
DVT prophylaxis: HSQ
Early nutrition
Early mobilization
Critical care statement: A total of 38 minutes of critical care time was provided for this patient today. This includes management of unstable vital signs, evaluation of the patient at bedside, reviewing the patient's pertinent medical records
including radiographs, microbiology, laboratory evaluations, and discussion with primary team, consultants, pharmacy, nutrition, physical therapy, case management, charge nurse, critical care nursing, and respiratory therapy.
[2025-04-12 17:01] LABS: Hematocrit 44.2 % (39.0-52.0); Hemoglobin 14.3 g/dL (13.0-18.0); Mean Corp Hgb Conc. 32.4 g/dL (33.0-37.0); Mean Corpuscular Volume 92.7 fL (80.0-94.0); Platelet Count 244 10^3/uL (130-400); Red Cell Dist. Width 13.4 % (11.5-14.5)
[2025-04-12 17:23] LABS: Blood Urea Nitrogen 15 mg/dl (9-20); Calcium 9.0 mg/dl (8.4-10.2); Carbon Dioxide 24 mmol/L (22-30); Chloride 109 mmol/L (98-107); Estimated Creatinine Clearance 87 ml/min; Glucose 129 mg/dl (70-99); Potassium 4.5 mmol/L (3.5-5.1); Sodium 135 mmol/L (135-145); eGFR > 60.00
[2025-04-12] MEDS: NSS 1000 IV (17:53)
--- NOTE | 2025-04-12 18:42 | PTCARENOTE ---
Received pt in bed from PACU into rm [id number] @ approx 1730. Pt. drowsy, awakens to verbal stim; ox3; c/o mild discomfort @ surgical site. B/L LE neurovascular checks completed per orders- see flow sheet. SR w PVC's on monitor. SpO2 98% on 8L simple
mask; removed 2H post op and SpO2 88%, 2LNC allpied and SPO2 recovered back into 90's. Auscultated clear/dim breath sounds. +BS, abd round/obese. Tolerating ice chips; uninterested in dinner. Therm corbett in place draining yellow urine. R TIAGO w
surgical dressing from upper thigh down to lower calf; ZARI drain x2 w small amt of sang drainage. NSS @ 80mL/hr infusing via R FA. L rad art line transduced, calibrated, and monitored; all ports patent and secured. Pt.'s and daughter visited.
next shift updated. Pt. instructed on how to report care concerns and call lola paige in reach.
[2025-04-12] MEDS: HEPARIN 5000 UNITS SC (21:29)
[2025-04-12] MEDS: LIPITOR 40 MG PO (21:29)
[2025-04-12] MEDS: ZESTRIL 10 MG PO (21:29)
[2025-04-12] MEDS: PLAVIX 75 MG PO (21:29)
[2025-04-12] MEDS: ROXICODONE 5 MG PO (21:29)
[2025-04-12] MEDS: PROTONIX 40 MG PO (21:30)
[2025-04-13] VITALS (13 sets, daily range): BP systolic 128–162; BP diastolic 61–88; BMI 40.4
--- NOTE | 2025-04-13 | PTCARENOTE ---
no changes in assessment noted. remains SR on monitor w/ PVCs, on 2L NC, neurovascular and sites checks continue. denies need for pain meds. call davila in reach
[2025-04-13] MEDS: TYLENOL 650 MG PO (03:03)
[2025-04-13] MEDS: NSS 1000 IV (03:03)
[2025-04-13 03:30] LABS: Hematocrit 41.6 % (39.0-52.0); Hemoglobin 13.3 g/dL (13.0-18.0); Mean Corp Hgb Conc. 32.0 g/dL (33.0-37.0); Mean Corpuscular Volume 92.0 fL (80.0-94.0); Platelet Count 244 10^3/uL (130-400); Red Cell Dist. Width 13.2 % (11.5-14.5)
[2025-04-13 03:41] LABS: INR 1.02; PT 13.7 Sec (11.4-14.6)
[2025-04-13 03:42] LABS: APTT 27.5 Sec (23.4-35.0)
[2025-04-13 03:52] LABS: Blood Urea Nitrogen 14 mg/dl (9-20); Calcium 8.6 mg/dl (8.4-10.2); Carbon Dioxide 23 mmol/L (22-30); Chloride 111 mmol/L (98-107); Estimated Creatinine Clearance 106 ml/min; Glucose 108 mg/dl (70-99); Potassium 4.6 mmol/L (3.5-5.1); Sodium 139 mmol/L (135-145); eGFR > 60.00
[2025-04-13 04:46] LABS: Hepatitis C Antibody Negative (Negative)
--- NOTE | 2025-04-13 06:18 | PTCARENOTE ---
AM labs sent. assessment unchanged. neurovascular checks continue, call davila in reach.
[2025-04-13] MEDS: ROXICODONE 5 MG PO ×2 (08:17→20:46)
[2025-04-13] MEDS: HEPARIN 5000 UNITS SC (08:17)
[2025-04-13] MEDS: TRICOR 145 MG PO (08:17)
--- NOTE | 2025-04-13 08:17 | W.PN.INTV ---
Today's Communication / Plan
Recommendations
Up OOB as tolerated
Encourage incentive spirometer use
Pain control
Postoperative management per vascular surgery
Neurovascular checks q1hr
Hospital Scientist service will continue to follow along
Assessment
-
Assessment: 64-year-old male active tobacco smoker with a past medical history of bilateral popliteal artery aneurysm, PAD, GERD, history of duodenal ulcer, hypertension, hypercholesterolemia, and history of DVT who presents for elective right
lower extremity vascular bypass. Patient known to vascular surgery, with last visit on 02/[address] Menjivar. He has right popliteal artery aneurysm has increased in size and he has high-grade stenosis at the distal aspect due to a mural thrombus
within the aneurysm and calcified plaque. Bypass with exclusion of the aneurysm recommended. On 04/12/2025, patient underwent right proximal superficial femoral artery to below�knee popliteal artery bypass with ipsilateral reversed great saphenous
vein, and ligation and exclusion of right popliteal artery aneurysm. There were no complications, EBL was 50 cc. Patient transferred to the ICU postoperatively, and Hospital Scientist services consulted for additional management/recommendations.
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
Impression:
#Right popliteal artery aneurysm s/p right proximal superficial femoral artery to below�knee popliteal artery bypass with ipsilateral reversed great saphenous vein, and ligation and exclusion of right popliteal artery aneurysm (POD #1)
#Leukocytosis � likely reactive in setting of above
#Chest wall abscess with culture collected 04/01/2025 growing Gleimia europaea with scant growth of Actinobaculum schaalii
#Right upper lobe 4 mm nodule (new) via PET-myocardial scan on 04/06/2025
#Hx of cecal perforation s/p colonoscopy on 07/16/2023 with cecal polypectomy with mucosal resection s/p APC, hot biopsy forceps and clipping s/p ex-lap with right hemicolectomy with washout and end-ileostomy creation s/p robotic reversal (September 2023)
Plan:
Postoperative surgical intensive care unit monitoring
Supplemental oxygen as needed to maintain SpO2 >90-94%
prn nebulized bronchodilators (not currently bronchospastic)
Incentive spirometry encouraged 10x per hour for at least 4 hrs a day
Aspiration precautions
Pain control
Neuro and vascular checks per protocol
Maintain MAP>65
Replete electrolytes with K>4, Mg>2
Maintain euglycemia with goal BG 140-180; HbA1c: 5.7 on 12/17/2024
Vascular surgery following-correspondence and operative notes reviewed
Transfuse blood products as needed to keep Hb>7g/dL, and plt>50k (given post-operative status)
Outpatient pulmonary office follow-up will be arranged due to small right upper lobe nodule seen on PET, myocardial perfusion imaging study; it appears that this may be an intrapulmonary lymph node - -> recommend repeat CT Chest in approx 3 months
time to assess stability
Can offer nicotine patch if patient interested, although it seems that he cut down significantly on his overall cigarette usage
DVT prophylaxis: Changed HSQ to LMWH
Early nutrition
Early mobilization
Given that he continues with q1hr neurovascular checks, he requires ICU level of care. Hopefully he can be downgraded out of ICU tomorrow if he is clinically stable
Critical care statement: A total of 36 minutes of critical care time was provided for this patient today. This includes management of unstable vital signs, evaluation of the patient at bedside, reviewing the patient's pertinent medical records
including radiographs, microbiology, laboratory evaluations, and discussion with primary team, consultants, pharmacy, nutrition, physical therapy, case management, charge nurse, critical care nursing, and respiratory therapy.
Subjective Dataa
Subjective Data
Date of Service:
Date of Service: April 13, 2025
Chief Complaint: Hospital Scientist Follow Up
Subjective:
Patient was seen and evaluated this morning. Sitting in chair in no acute distress. No acute events reported overnight. Currently on room air. Says that his right leg/feet are burning when he walks on it. Heart rate currently 63, BP 153/87 and
saturating 95%.
Review of Systems
General: Other (negative unless mentioned above)
Objective Data
Data Reviewed
Vital Signs / I&O / Oxygen:
Vital Signs
Temp Pulse Resp BP Pulse Ox
98.2 F 65 16 131/91 97
04/13/25 07:23 04/13/25 07:00 04/13/25 07:00 04/12/25 21:29 04/13/25 07:00
Intake and Output
04/12/25 04/13/25 04/14/25
06:59 06:59 06:59
Intake Total 1415 / 1495 160 / 160
Output Total 1160 / 1215 205 / 205
Balance 255 / 280 -45 / -45
SaO2 97
Nasal Cannula flow liters per 2
minute
Physical Exam
General: Respiratory Distress (negative), Comfortable, Chills (negative) and Sweats (negative)
HEENT: Normocephalic and Anicteric
Cardiovascular: S1-S2, Rub (negative) and Peripheral Edema (negative)
Respiratory: Wheeze (negative), Crackles (negative), Rhonchi (negative) and Stridor (negative)
GI: Soft, Distended (Abdominal obesity), Non Tender and Normal Bowel Sounds
Neurology: AO x 3 and Tremors (negative)
Skin: Warm, Dry, Cyanosis (negative) and Jaundice (negative)
Labs/Micro/Reports
Lab Data
04/13/25 02:52
04/13/25 02:52
Laboratory Results
04/13/25
02:52
PT 13.7
INR 1.02
APTT 27.5
--- NOTE | 2025-04-13 08:57 | W.PN.VS ---
Addendum entered and electronically signed by Gabriel Corbett III, MD 04/13/25 13:10:
This patient was seen and examined in collaboration with DANIEL Preutt. I agree with the history and physical exam as well as the assessment and plan. I have the following additions:
Looks great this morning
No specific complaints
Easily palpable DP and PT pulse in the right foot
Right foot is warm
Dressings are clean and dry
JPs serosanguineous
Agree with plan as outlined
Signed:
Gabriel Corbett III, MD
Vascular Surgery
[facility]
Original Note:
Today's Communication / Plan
-
Seen and assessed with Dr Corbett
Assessment/Plan
-
POD 1
1. Right proximal superficial femoral artery to below-knee popliteal artery bypass with ipsilateral reversed great saphenous vein
2. Ligation and exclusion of right popliteal artery aneurysm
Plan:
DC debra
DC corbett
DC IVF
OOB to chair
Increase diet
ICU today
PT tomorrow morning
Subjective Data
-
Date of Service: April 13, 2025
Pt seen at bedside this am with Dr Corbett. Pt offers no complaits at this time. No events overnight.
Objective Data
-
Vital Signs
Temp Pulse Resp BP Pulse Ox
98.2 F 65 16 131/91 97
04/13/25 07:23 04/13/25 07:00 04/13/25 07:00 04/12/25 21:29 04/13/25 07:00
Intake and Output
04/12/25 04/13/25 04/14/25
06:59 06:59 06:59
Intake Total 1415 / 1495 160 / 160
Output Total 1160 / 1215 55 / 55
Balance 255 / 280 105 / 105
Intake:
Oral fluids 240 / 240
IV fluids (Total) 1175 / 1255 160 / 160
Nss 1,000 ml @ 80 mls/hr IV . 1040 / 1120 160 / 160
[id number] JOSIANE Rx#:[id number]
Nss 500 ml @ 40 mls/hr IV . 60 / 60
[id number] JOSIANE Rx#:[id number]
normosol 75 / 75
Output:
Drain Output (Total) 80 / 80
Right Beltran-Villagran A 80 / 80
Right Beltran-Villagran B 0 / 0
Urine, Corbett 1080 / 1135
Lab Results
04/13/25 02:52
04/13/25 02:52
Calcium 8.6 mg/dl (8.4-10.2) 04/13/25 02:52
Physical Exam
-
AAOx3
No tachypnea
No tachycardia
Abd soft
Surigcal site dressings c/d/i, soft, flat
ZARI drains intact (80 and 0) serosang drainage
Easily palpable DP and PT pulses
--- NOTE | 2025-04-13 11:41 | PTCARENOTE ---
Assumed care of pt. Assessment unchanged. Pt OOB in chair.
--- NOTE | 2025-04-13 11:44 | PTCARENOTE ---
Pt AAOx3. O2 d/c'd. SpO2 94% on RA. Left radial a-line d/c'd. Menjivar d/c'd. OOB in chair with 1 assist. Right DP palpable. Left DP and B/L PTs present with doppler. RLE dressing intact with small amount of drainage.
--- NOTE | 2025-04-13 12:49 | CM ---
Initial assessment completed with patient who lives with his in a 1 story ranch style home with basement, 1 step to enter. 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 SPC in the home
which he does not use. No in-home services. No HC-POA requested and was provided AD paperwork. No VA benefits. No Psychiatric hospitalizations. PCP is [facility] Lissy SANCHEZ. Pharmacy is [phone] [phone] in [place]. Discharge
POC: Per MD - therapy maria t on 04/14/25. If drains remain in place will need HH RN. DH is preference.
--- NOTE | 2025-04-13 16:32 | PTCARENOTE ---
Pt OOB in chair. Assessment unchanged. VSS.
[2025-04-13] MEDS: LOVENOX 40 MG SC (18:05)
--- NOTE | 2025-04-13 20:30 | PTCARENOTE ---
pt ambulated back to bed from chair. neurovascular checks q4h, +DP/PT pulses. RLE aquacells with scant old drainage, ZARI x2 intact. call davila in reach.
[2025-04-13] MEDS: PROTONIX 40 MG PO (20:46)
[2025-04-13] MEDS: LIPITOR 40 MG PO (20:47)
[2025-04-13] MEDS: PLAVIX 75 MG PO (20:47)
[2025-04-13] MEDS: ZESTRIL 10 MG PO (20:47)
[2025-04-14] VITALS (19 sets, daily range): BP systolic 116–167; BP diastolic 39–83; PULSE 80; O2SAT 96; BMI 40.5
[2025-04-14] MEDS: TYLENOL 650 MG PO ×2 (02:12→12:34)
--- NOTE | 2025-04-14 02:21 | DOWNTIME ---
There was a [employer] Client Electro Mechanical Engineer Downtime on 04/14/2025 from 0100 to 04/14/2025 at 0215. Downtime documentation of patient's care, including medication administrations, has been reconciled in the electronic record per guidelines. Refer to the
patient's paper chart under the miscellaneous tab to see printed paper medication records and downtime forms.
--- NOTE | 2025-04-14 04:33 | PTCARENOTE ---
AM labs sent. assessment unchanged, call davila in reach.
[2025-04-14 04:57] LABS: Hematocrit 39.9 % (39.0-52.0); Hemoglobin 12.9 g/dL (13.0-18.0); Mean Corp Hgb Conc. 32.3 g/dL (33.0-37.0); Mean Corpuscular Volume 94.8 fL (80.0-94.0); Platelet Count 195 10^3/uL (130-400); Red Cell Dist. Width 13.4 % (11.5-14.5)
[2025-04-14 05:03] LABS: Blood Urea Nitrogen 13 mg/dl (9-20); Calcium 8.7 mg/dl (8.4-10.2); Carbon Dioxide 25 mmol/L (22-30); Chloride 110 mmol/L (98-107); Estimated Creatinine Clearance 106 ml/min; Glucose 118 mg/dl (70-99); Potassium 4.0 mmol/L (3.5-5.1); Sodium 138 mmol/L (135-145); eGFR > 60.00
--- NOTE | 2025-04-14 07:53 | W.PN.VS ---
Addendum entered and electronically signed by Fabricio Brice MD 04/14/25 10:28:
Seen and examined with LATOYA Zaragoza. Agree with findings as noted below. Right lower extremity dressings are clean dry and intact. Thigh and calf are soft. ZARI serosanguineous. Volume noted per charting. Palpable pedal pulses foot warm. Plan/as
discussed and noted below. Possible remove 1 of JPs today if continued low output.
Original Note:
Today's Communication / Plan
-
Seen and assessed with Dr. Brice
Assessment/Plan
-
POD 2
1. Right proximal superficial femoral artery to below-knee popliteal artery bypass with ipsilateral reversed great saphenous vein
2. Ligation and exclusion of right popliteal artery aneurysm
Plan:
Out of bed/ambulate/physical therapy
Continue JPs, will monitor today and possibly remove 1 this afternoon
Transferred to telemetry
Subjective Data
-
Date of Service: April 14, 2025
Patient seen at bedside this a.m. with Dr. Brice. Patient offers no complaints at this time. No events overnight. Remains stable.
Objective Data
-
Vital Signs
Temp Pulse Resp BP Pulse Ox
98.7 F 68 17 130/63 93
04/14/25 07:18 04/14/25 06:00 04/14/25 06:00 04/14/25 06:00 04/14/25 06:00
Intake and Output
04/13/25 04/14/25 04/15/25
06:59 06:59 06:59
Intake Total 1415 / 1495 1200 / 1200
Output Total 1160 / 1215 1190 / 1190
Balance 255 / 280
Intake:
Oral fluids 240 / 240 960 / 960
IV fluids (Total) 1175 / 1255 240 / 240
Nss 1,000 ml @ 80 mls/hr IV . 1040 / 1120 240 / 240
[id number] JOSIANE Rx#:[id number]
Nss 500 ml @ 40 mls/hr IV . 60 / 60
[id number] JOSIANE Rx#:[id number]
normosol 75 / 75
IV piggybacks 0 / 0
Output:
Drain Output (Total) 80 / 80 65 / 65
Right Beltran-Villagran A 80 / 80 55 / 55
Right Beltran-Villagran B 0 / 0
Urine, Menjivar 1080 / 1135 275 / 275
Urine, Voided 850 / 850
Lab Results
04/14/25 04:24
04/14/25 04:24
Calcium 8.7 mg/dl (8.4-10.2) 04/14/25 04:24
Physical Exam
-
AAOx3
No tachypnea
No tachycardia
Abd soft
Surigcal site dressings c/d/i, soft, flat
ZARI drains intact (55 and 10) serosang drainage
Easily palpable DP and PT pulses
--- NOTE | 2025-04-14 08:12 | W.PN.INTV ---
Today's Communication / Plan
Recommendations
Up OOB as tolerated
Encourage incentive spirometer use
Pain control
Postoperative management per vascular surgery
Neurovascular checks per protocol
Outpatient pulmonary office follow-up will be arranged given lung nodule seen on recent myocardial PET perfusion study earlier this month
Patient is stable for downgrade out of ICU to telemetry. This was confirmed to be appropriate via vascular surgery RN REVIEW. No additional recommendations at this time. Health Care Facilities Inspector/Pulmonary service will now sign off. Please reconsult if there are
any additional questions/concerns, or if patient's respiratory status deteriorates.
Assessment
-
Assessment: 64-year-old male active tobacco smoker with a past medical history of bilateral popliteal artery aneurysm, PAD, GERD, history of duodenal ulcer, hypertension, hypercholesterolemia, and history of DVT who presents for elective right
lower extremity vascular bypass. Patient known to vascular surgery, with last visit on 02/[address] Menjivar. He has right popliteal artery aneurysm has increased in size and he has high-grade stenosis at the distal aspect due to a mural thrombus
within the aneurysm and calcified plaque. Bypass with exclusion of the aneurysm recommended. On 04/12/2025, patient underwent right proximal superficial femoral artery to below�knee popliteal artery bypass with ipsilateral reversed great saphenous
vein, and ligation and exclusion of right popliteal artery aneurysm. There were no complications, EBL was 50 cc. Patient transferred to the ICU postoperatively, and Health Care Facilities Inspector services consulted for additional management/recommendations.
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
Impression:
#Right popliteal artery aneurysm s/p right proximal superficial femoral artery to below�knee popliteal artery bypass with ipsilateral reversed great saphenous vein, and ligation and exclusion of right popliteal artery aneurysm (POD #2)
#Leukocytosis � likely reactive in setting of above
#Chest wall abscess with culture collected 04/01/2025 growing Gleimia europaea with scant growth of Actinobaculum schaalii
#Right upper lobe 4 mm nodule (new) via PET-myocardial scan on 04/06/2025
#Hx of cecal perforation s/p colonoscopy on 07/16/2023 with cecal polypectomy with mucosal resection s/p APC, hot biopsy forceps and clipping s/p ex-lap with right hemicolectomy with washout and end-ileostomy creation s/p robotic reversal (September 2023)
Plan:
Postoperative surgical intensive care unit monitoring
Supplemental oxygen as needed to maintain SpO2 >90-94%
prn nebulized bronchodilators (not currently bronchospastic)
Incentive spirometry encouraged 10x per hour for at least 4 hrs a day
Aspiration precautions
Pain control
Neuro and vascular checks per protocol
Maintain MAP>65
Replete electrolytes with K>4, Mg>2
Maintain euglycemia with goal BG 140-180; HbA1c: 5.7 on 12/17/2024
Continue high intensity statin + Plavix
Vascular surgery following-correspondence and operative notes reviewed
Transfuse blood products as needed to keep Hb>7g/dL, and plt>50k (given post-operative status)
Outpatient pulmonary office follow-up will be arranged due to small right upper lobe nodule seen on PET, myocardial perfusion imaging study; it appears that this may be an intrapulmonary lymph node - -> recommend repeat CT Chest in approx 3 months
time to assess stability
Can offer nicotine patch if patient interested - he has cut down cigarette use significantly
DVT prophylaxis: LMWH
Early nutrition
Early mobilization
Patient is stable for downgrade out of ICU to telemetry. This was confirmed to be appropriate via vascular surgery RN REVIEW. No additional recommendations at this time. Health Care Facilities Inspector/Pulmonary service will now sign off. Thank you for allowing us to be
involved in the care of this patient. Please reconsult if there are any additional questions/concerns, or if patient's respiratory status deteriorates.
Total time spent today was 57 minutes for this encounter. Time includes reviewing laboratory test/imaging results, reviewing pertinent medical records, obtaining and reviewing medical history, performing an appropriate exam, ordering medications,
tests and procedures. Time also includes documentation of this encounter, coordinating patient care and communicating with other healthcare professionals. Total time does not include separately billed tests performed on this date of service.
Subjective Dataa
Subjective Data
Date of Service:
Date of Service: April 14, 2025
Chief Complaint: Health Care Facilities Inspector Follow Up
Subjective:
Patient seen today at bedside. He feels well overall. Heart rate 76, BP 137/66. Currently on room air breathing comfortably. No acute events reported from overnight.
Review of Systems
General: Other (Negative unless mentioned above)
Objective Data
Data Reviewed
Vital Signs / I&O / Oxygen:
Vital Signs
Temp Pulse Resp BP Pulse Ox
98.1 F 72 22 134/39 95
04/14/25 15:15 04/14/25 11:00 04/14/25 11:00 04/14/25 11:00 04/14/25 10:00
Intake and Output
04/13/25 04/14/25 04/15/25
06:59 06:59 06:59
Intake Total 1415 / 1495 1200 / 1200
Output Total 1160 / 1215 1190 / 1190 213 / 213
Balance 255 / 280 10 -213 / -213
SaO2 95
Nasal Cannula flow liters per 2
minute
Physical Exam
General: Respiratory Distress (negative), Comfortable, Chills (negative) and Sweats (negative)
HEENT: Normocephalic, Anicteric and Other (Thick neck)
Cardiovascular: S1-S2, Rub (negative) and Peripheral Edema (negative)
Respiratory: Clear, Wheeze (negative), Crackles (negative), Rhonchi (negative), Stridor (negative) and Other (Diminished breath sounds bilaterally)
GI: Soft, Distended (Abdominal obesity), Non Tender and Normal Bowel Sounds
Neurology: AO x 3 and Tremors (negative)
Skin: Warm, Dry, Cyanosis (negative) and Jaundice (negative)
Labs/Micro/Reports
Lab Data
04/14/25 04:24
04/14/25 04:24
[2025-04-14] MEDS: TRICOR 145 MG PO (08:55)
--- NOTE | 2025-04-14 09:01 | PN.CDI ---
CDI
- -
CDI:
Physician Documentation Request
Admit Date: 04/12/25 09:52
Dear Vascular surgery,
Patient admitted for popliteal artery aneurysm.
Please review the following and provide your response in the progress notes.
Clinical Indicators:
Height: 5' 8'
Weight: 266 lbs
BMI: 40.5
If possible, please provide an associated diagnosis related to the abnormal BMI, such as:
Obese
Overweight
BMI is not significant
Other
BMI > or = to 40.0
Overweight
Obesity:
Due to excess calories
Drug induced
Due to other cause
Severe or morbid obesity:
With alveolar hypoventilation (Obesity hypoventilation syndrome)
Without alveolar hypoventilation
Use of terms such as suspected, likely, concern for, or probable (associated with a specific diagnosis that is being evaluated, monitored, or treated as if it exists) are acceptable and can be coded in the inpatient setting, when documented at the
time of discharge.
Thank you,
Khalida Perrin RN, BSN
CDI Specialist
Available via [place] text
Please use your independent medical judgment in providing your response.
--- NOTE | 2025-04-14 12:00 | PTCARENOTE ---
OOB in chair for several hours. Palpable right DP and PT. Doppler on left. Dressings intact. All other assessments unchanged.
--- NOTE | 2025-04-14 13:52 | CM ---
OOB and ambulate, ZARI drains in place. may remove 1 today. Discharge POC: Awaiting therapy eval. If drains remain in place will need HH RN. DH is preference. Referral not forwarded.
--- NOTE | 2025-04-14 15:55 | W.PN.UPDATE ---
Update Note
Progress Note Update
CDI:
Physician Documentation Request
Admit Date: 04/12/25 09:52
Patient admitted for popliteal artery aneurysm.
Please review the following and provide your response in the progress notes.
Clinical Indicators:
Height: 5' 8'
Weight: 266 lbs
BMI: 40.5
If possible, please provide an associated diagnosis related to the abnormal BMI, such as:
Extreme obesity
[2025-04-14] MEDS: LOVENOX 40 MG SC (17:47)
[2025-04-14] MEDS: PROTONIX 40 MG PO (20:49)
[2025-04-14] MEDS: LIPITOR 40 MG PO (20:50)
[2025-04-14] MEDS: PLAVIX 75 MG PO (20:50)
[2025-04-14] MEDS: ROXICODONE 5 MG PO (20:52)
[2025-04-14] MEDS: ZESTRIL 10 MG PO (20:52)
[2025-04-15] VITALS: BP 124/49
[2025-04-15 04:00] VITALS: BP 125/36
[2025-04-15 04:28] VITALS: BMI 40.3
[2025-04-15 04:28] LABS: Hematocrit 42.0 % (39.0-52.0); Hemoglobin 13.4 g/dL (13.0-18.0); Mean Corp Hgb Conc. 31.9 g/dL (33.0-37.0); Mean Corpuscular Volume 95.7 fL (80.0-94.0); Platelet Count 213 10^3/uL (130-400); Red Cell Dist. Width 13.2 % (11.5-14.5)
[2025-04-15 04:29] VITALS: BP 120/62
[2025-04-15 04:52] LABS: Blood Urea Nitrogen 13 mg/dl (9-20); Calcium 9.0 mg/dl (8.4-10.2); Carbon Dioxide 28 mmol/L (22-30); Chloride 108 mmol/L (98-107); Estimated Creatinine Clearance 95 ml/min; Glucose 116 mg/dl (70-99); Magnesium 1.9 mg/dl (1.6-2.3); Potassium 3.8 mmol/L (3.5-5.1); Sodium 136 mmol/L (135-145); eGFR > 60.00
[2025-04-15] MEDS: TRICOR 145 MG PO (07:42)
--- NOTE | 2025-04-15 07:45 | PTCARENOTE ---
Assumed care of patient. Pt rec'd A&Ox3. at bedside. Last ZARI removed and aquacell dressings removed. Right leg incision sites BREE and well approximated w/ alicia. Drsgs placed over puncture sites from where ZARI's removed. Assessment
completed. VS obtained. Took am pills w/o issue. For tentative d/c home today. Call davila in reach. Will continue to monitor.
--- NOTE | 2025-04-15 07:57 | W.PN.VS ---
Addendum entered and electronically signed by Fabricio Brice MD 04/15/25 09:19:
Seen and examined with TORPEDOMAN'S MATE. Agree with findings as noted below. Right lower extremity incisions are clean dry and intact. ZARI serosanguineous. Relatively low volume. Removed by us. Thigh and calf are soft. Palpable pedal pulses. Plan/as
discussed and noted below.
Original Note:
Today's Communication / Plan
-
Patient seen and examined at bedside with Dr. Fabricio Brice M.D., below plan reviewed with attending
Assessment/Plan
-
POD 3
1. Right proximal superficial femoral artery to below-knee popliteal artery bypass with ipsilateral reversed great saphenous vein
2. Ligation and exclusion of right popliteal artery aneurysm
Plan:
Cleared for discharge to home
Will establish home health per recommendation of physical therapy prior to discharge
Continue statin and antiplatelet of Plavix 75 mg p.o. daily, reviewed with attending Dr. Fabricio Brice M.D. who agrees no clinical indication for initiation of aspirin 81 mg p.o. daily
Follow-up placed in discharge instructions
Subjective Data
-
Date of Service: April 15, 2025
Patient seen and examined at bedside, offers no complaints. Denies nausea, vomiting, fever, and chills. Endorses no difficulty with ambulation yesterday while working with physical therapy. Reports eagerness for discharge to home when deemed
stable.
Objective Data
-
Vital Signs
Temp Pulse Resp BP Pulse Ox
97.8 F 71 18 120/62 97
04/15/25 04:27 04/15/25 04:29 04/15/25 04:18 04/15/25 04:29 04/15/25 04:18
Intake and Output
04/14/25 04/15/25 04/16/25
06:59 06:59 06:59
Intake Total 1200 / 1200
Output Total 1190 / 1190 843 / 843
Balance -843 / -843
Intake:
Oral fluids 960 / 960
IV fluids (Total) 240 / 240
Nss 1,000 ml @ 80 mls/hr IV . 240 / 240
[id number] JOSIANE Rx#:[id number]
IV piggybacks 0 / 0
Output:
Drain Output (Total) 65 / 65 43 / 43
Right Beltran-Villagran A 55 55 40 / 40
Right Beltran-Villagran B
Urine, Menjivar 275 / 275
Urine, Voided 850 / 850 800 / 800
Lab Results
04/15/25 04:10
04/15/25 04:10
Calcium 9.0 mg/dl (8.4-10.2) 04/15/25 04:10
Phosphorus 2.6 mg/dl (2.5-4.5) 04/15/25 04:10
Magnesium 1.9 mg/dl (1.6-2.3) 04/15/25 04:10
Physical Exam
-
AAOx3
No tachypnea
No tachycardia
Abd soft
Surigcal site dressings c/d/i, soft, flat, surgical site dressing removed by this provider and staple sites clean, dry, and intact and well-approximated
ZARI drain intact,serosang drainage, removed by this provider
Easily palpable DP and PT pulses
[2025-04-15 08:00] VITALS: BP 156/67
--- NOTE | 2025-04-15 09:13 | W.[place]-PDMP ---
[place]-PD[place]
-
Checked the [place]- Prescription Drug Monitoring Program website, no red flags identified; safe to proceed with prescription.
--- NOTE | 2025-04-15 09:13 | W.DS.TRANS ---
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
-
Discharge Instructions:
Discharge Diagnosis/Procedures Diagnosis: Right popliteal artery aneurysm
Procedure:
1. Right proximal superficial femoral artery to
below-knee popliteal artery bypass with
ipsilateral reversed great saphenous vein
2. Ligation and exclusion of right popliteal
artery aneurysm
Diet As tolerated
Activity No strenuous activity
Driving Restrictions No driving for 2 weeks
Bathing Restrictions OK to Shower
Instructions:
Stand-Alone Forms: Vascular Surg Discharge Instr
Changes to Home Medications: Yes
Discharge Medications:
DC Medications w/original date entered in [facility]
atorvastatin 40 mg tablet 40 mg PO HS High cholesterol 05/27/20
fenofibrate nanocrystallized 145 mg tablet 145 mg PO DAILY High cholesterol 05/27/20
clopidogrel 75 mg tablet 75 mg PO HS Blood clot prevention/tx ##0 11/26/21
pantoprazole 40 mg tablet,delayed release 40 mg PO HS Gastrointestinal Issue 09/23/23
Cannabis 1 dose inhalation PRN PRN Anxiety 03/25/25
Held on 04/15/25. Instructions: Hold until no longer taking narcotics to manage postoperative pain
lisinopril 10 mg tablet 10 mg PO HS Blood Pressure 03/25/25
oxycodone 5 mg tablet 5 mg PO Q4HPRN PRN moderate pain #10 tabs 04/15/25
Home Medication Changes
Cannabis 1 dose inhalation PRN PRN Anxiety 03/25/25
Held on 04/15/25. Instructions: Hold until no longer taking narcotics to manage postoperative pain
Stop: Patient had completed prescribed course of Augmentin that he was on prior to procedure, thus instructed to stop
Started as needed: oxycodone 5 mg tablet 5 mg PO Q4HPRN PRN moderate pain #10 tabs 04/15/25
Pending Results: No
--- NOTE | 2025-04-15 10:46 | CM ---
Patient has been medically cleared for discharge to home with LOYDA ROBBINS RN, PT/OT services, RW has been provided. will transport home.
[2025-04-15 11:14] VITALS: BP 114/69
--- NOTE | 2025-04-15 12:40 | PTCARENOTE ---
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 Belongings packed. Walker sent with pt per PT/vascular. Pt
d/c'd via wheelchair... to drive pt home.
--- NOTE | 2025-04-15 17:46 | W.DCSUMMARY ---
Discharge Summary
Discharge Data
Date of Admission: 04/12/25
Date of Discharge: 04/15/25
-
Pending Results: No
Hospital Course
Attending: Otto
Consultants: Pulmonary medicine
Allergies: NKDA
Procedure with date: 04/12/2025: Right proximal SFA to below-knee pop artery bypass with ipsilateral reversed greater saphenous vein, ligation and exclusion of right popliteal artery aneurysm
History of present illness: The patient is an 64-year-old male with multiple medical conditions including: Bilateral popliteal artery aneurysms, PAD, GERD, hypertension, mixed hyperlipidemia, duodenal ulcer, tobacco use disorder, DVT, left lower
extremity stent graft 2016. Patient presented on 04/12/2025 for scheduled procedure with Dr. Menjivar. Patient presented at baseline health with no reports of recent illness or trauma.
Hospital Course: Briefly, the patient underwent scheduled bypass without complications, and recovered in PACU. Following recovery phase one and two patient was transferred to intensive care unit per protocol for continued hemodynamic monitoring.
Sinter Feeder consulted to aid in medical management from a critical care perspective. POD #1 (04/13/2025) Patient overall doing well and tolerating PO diet. Surgical leg site dressings clean, dry, and intact and soft. No evidence of hematoma.
Arterial line and IV fluids discontinued. ZARI drains with serosanguineous output. POD 2 (04/14/2025) out of bed/ambulate, physical therapy consult. Will continue AZRI drains today DANIEL Pedro likely remove 1 tomorrow afternoon.
Downgrade to telemetry today. POD 3 (04/15/2025) atient able to ambulate without difficulty or incident. Patient stable for discharge to home.
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 All instructions were given to the patient in both written and verbal form and the patient expressed understanding
Discharge Plan
-
Patient Disposition: Home with Home Care
Discharge Diagnosis/Procedures: Diagnosis: Right popliteal artery aneurysm
Procedure:
1. Right proximal superficial femoral artery to below-knee popliteal artery bypass with ipsilateral reversed great saphenous vein
2. Ligation and exclusion of right popliteal artery aneurysm
Diet: As tolerated
Activity: No strenuous activity
Driving Restrictions: No driving for 2 weeks
Bathing Restrictions: OK to Shower
Stand Alone Forms: Vascular Surg Discharge Instr
Referrals:
Magnus Ellis MD [Active, Pulmonary Medicine] - in four to six weeks
Lissy Arriaga CRNP [Primary Care Provider, Family Practice]
Valery Estrada CRNP [Specified Professional Personl, Vascular Surgery] - 04/28/25 3:00 pm
Referral Note: Vascular surgery office follow up
Prescriptions:
New
oxycodone 5 mg Tablet
5 mg PO Q4HPRN PRN (Reason: moderate pain) Qty: 10 0RF
Continued
atorvastatin 40 MG tablet
40 mg PO HS
fenofibrate nanocrystallized 145 MG tablet
145 mg PO DAILY
clopidogrel 75 MG tablet
75 mg PO HS Qty: 0 0RF
pantoprazole 40 mg tablet,delayed release (DR/EC)
40 mg PO HS
lisinopril 10 mg Tablet
10 mg PO HS
Held
Cannabis
1 dose inhalation PRN PRN (Reason: Anxiety)
Hold Instructions: Hold until no longer taking narcotics to manage postoperative pain
Discontinued
amoxicillin-pot clavulanate
1 tab PO BID
Patient Comments:
04/01 X10 DAYS
Rx Instructions:
875 - 125mg
Discharge Orders:
Discharge Patient (As Directed); Ordered 04/15/25
Ordered By: Estephania Apple
Discharge Date and Time
Discharge Date/Time: 04/15/25 12:56
Print Language: BANGLADESHI
== END 2025-04-15 12:56 | disposition home health service (06) | DRG 253 ==
LOC: ICU 09:52
PROVIDERS: Nurse Practitioner; Nurse Practitioner Acute Care; Nurse Practitioner Family; ADMITTING PHYSICIAN Surgery Vascular Surgery; CONSULT PHYSICIAN Internal Medicine Critical Care Medicine; PRIMARYCARE PHYSICIAN Nurse Practitioner
PROC: 04QM0ZZ Repair Right Popliteal Artery, Open Approach (ICD-10-PCS; 2025-04-12)
PROC: 041K09L Bypass Right Femoral Artery to Popliteal Artery with Autologous Venous Tissue, Open Approach (ICD-10-PCS; 2025-04-12)
DX: I72.4 Aneurysm of artery of lower extremity (principal); I74.3 Embolism and thrombosis of arteries of the lower extremities; Z68.41 Body mass index [BMI] 40.0-44.9, adult; F17.210 Nicotine dependence, cigarettes, uncomplicated; Z86.718 Personal history of other venous thrombosis and embolism; E66.9 Obesity, unspecified
CPT/HCPCS: 35151; 36415; 71046; 80048; 83735; 84100; 85025; 85027; 85610; 85730; 86803; 86850; 86900; 86901; 97162; 99406

== ENCOUNTER → 2025-06-08 13:36 | Outpatient (REF) | payer OTHER, SELFPAY | LOC: DHVS 13:36 | PROVIDERS: ATTENDING PHYSICIAN Registered Nurse; FAMILY PHYSICIAN Nurse Practitioner | DX: I72.4 Aneurysm of artery of lower extremity (principal) | CPT/HCPCS: 93922; 93925 ==